=== PATIENT | female | born 1985 | race Hispanic/Latino ===

== ENCOUNTER 2019-04-03 04:15 | Emergency (ER) | payer OTHER ==
[~2019-04-03] VITALS: Ht 162.6 cm; Wt 95.3 kg
--- OUTSIDE RECORDS SUMMARY | 2019-04-03 04:18 | XMS REPORT | Clinical Summary ---
Author Author [facility]E [facility] CenterGround Zero Group CorporationH[facility] Address Unknown Phone Unavailable Care Team Providers Care Catechist Name Role Phone Yuriy Loza MD PCP Unavailable Allergies No Known Allergies Medications End Date Status Medication Sig Dispensed Refills Start Date Active metFORMIN (GLUCOPHAGE) Take 1,000 mg 0 1000 MG tablet by mouth 2 (two) times daily with breakfast and dinner. Active insulin glargine Inject 40 0 (BASAGLAR KWIKPEN U-100 Units INSULIN) 100 unit/mL (3 subcutaneousl mL) InPn y nightly. Active insulin aspart U-100 Inject 0 (NOVOLOG) 100 unit/mL subcutaneousl InPn y 3 (three) times daily with meals. Active dulaglutide (TRULICITY) Inject 1.5 mg 0 1.5 mg/0.5 mL PnIj subcutaneousl y every 7 days. 11/10/2018 Discontinued sitagliptin-metformin Take 1,000 mg 0 100-1,000 mg by mouth 2 [id number]: Fatty (two) times liver, Hepatomegaly, daily . Liver mass, Immunity status testing 11/10/2018 Discontinued nitroglycerin (NITROSTAT) Place 0.4 mg 0 0.4 MG SL under the tabletIndications: Fatty tongue every liver, Hepatomegaly, 5 (five) Liver mass, Immunity minutes as status testing needed for Chest pain Put 1 pill under tongue every 5min as needed for chest pain.No more than 3 doses in 15min.Call 911 if pain is unrelieved 5min after 1st dose . 11/10/2018 Discontinued atorvastatin (LIPITOR) 10 Take 10 mg by 0 MG tabletIndications: mouth daily. Fatty liver, Hepatomegaly, Liver mass, Immunity status testing 11/10/2018 Discontinued INSULIN DETEMIR (LEVEMIR Inject 40 0 SUBQ) Units subcutaneousl y daily. 11/10/2018 Discontinued amLODIPine (NORVASC) 5 MG Take 5 mg by 0 tablet mouth daily. 7 11/10/2018 Discontinued pantoprazole (PROTONIX) Take 1 tablet 20 tablet 0 20 MG tablet (20 mg total) 8 by mouth daily. 01/05/2019 Discontinued traMADol (ULTRAM) 50 mg Take 1 tablet 40 tablet 0 tablet (50 mg total) 9 by mouth every 6 (six) hours for 10 days. Max Daily Amount: 200 mg 01/05/2019 Discontinued ondansetron (ZOFRAN) 4 MG Take 1 tablet 30 tablet 0 tablet (4 mg total) 9 by mouth 2 (two) times daily as needed for Nausea for up to 7 days. 01/15/2019 traMADol (ULTRAM) 50 mg Take 1 tablet 40 tablet 0 tablet (50 mg total) 9 by mouth every 6 (six) hours for 10 days. Max Daily Amount: 200 mg 01/12/2019 ondansetron (ZOFRAN) 4 MG Take 1 tablet 30 tablet 0 tablet (4 mg total) 9 by mouth every 6 (six) hours as needed for Nausea for up to 7 days. Active Problems Problem Noted Date Liver mass 03/12/2016 Last Assessment & Plan: Recent CT scan (02/26/2016) reveals multiple enhancing liver lesions in the right hepatic lobe, largest measuring 1.7 cm. Lesions are indeterminate. She has multiple risk factors of liver disease although no biochemical or radiographic evidence of advanced liver disease. Updated labs today evaluating hepatic function along with tumor markers. Outside CT scan will be reviewed at radiology conference next week. She will likely need repeat imaging in 6 months to document stability of masses. Immunity status testing 03/12/2016 Last Assessment & Plan: All patients with chronic liver disease, regardless of etiology, should be immunized to prevent hepatitis A and hepatitis B if they are not already immune. We will test for immunity to both viruses - vaccine recommendations will follow. Resolved Problems Problem Noted Date Resolved Date Class 3 severe obesity in adult 01/05/2019 01/05/2019 Morbid obesity with BMI of 40.0-44.9, adult 01/03/2019 01/04/2019 Morbid obesity 01/03/2019 01/04/2019 Fatty liver 03/12/2016 01/05/2019 Last Assessment & Plan: Steatosis noted on recent CT scan. For steatosis to be seen on CT scan at least 30% of hepatocytes must contain fat. Fibrosis can also be read as steatosis. She has multiple risk factors for fatty liver disease. We will review her CT scan at radiology conference to further evaluate and await biochemical work up. It is recommended that she lose at least 20-30 pounds via dietary modifications and regular exercise. Hepatomegaly 03/12/2016 01/08/2019 Last Assessment & Plan: Mild hepatomegaly with hepatic steatosis noted on recent CT scan. She has numerous risk factors for liver disease which include morbid obesity, NIDDM, metabolic syndrome, and previous piercings and tattoos. We will obtain labs screening for genetic, autoimmune, and metabolic etiologies of liver disease. She may benefit from hepatology referral for additional management. Encounters Care Team Description Date Type Specialty Cailin Mishra RN long-term follow-up 02/28/2019 Telephone Cailin Mishra RN long distance billing operator follow-up 02/23/2019 Telephone Felecia Dean NP 01/03/2019 Anesthesia Event Jim Cleveland MD ROBOTIC LAPAROSCOPY,LONGITUDINAL SLEEVE GASTRECTOMY 01/03/2019 Surgery Jim Cleveland MD 01/03/2019 [facility] General Internal Medicine - Encounter 01/05/2019 01/03/2019 Travel Jim Cleveland MD Fatty liver 12/21/2018 Hospital Pre-Admission Testing Encounter 12/21/2018 Orders Only General [facility] 11/30/2018 Surgery Che Walker MD 11/30/2018 Anesthesia Event Osmany, Luis Alfredo Korey 11/30/2018 Hospital Encounter Tanisha Martin MD 11/16/2018 Anesthesia Event [facility]OS[facility],POLYPECTOMY 11/16/2018 Surgery Osmany, Luis Alfredo Korey 11/16/2018 Hospital Encounter Osmany, Luis [facility]altaf [facility]mit Phone 11/10/2018 Hospital Pre-Admission Testing Encounter after 04/02/2018 Family History Medical History Relation Name Comments Unremarkable Brother Unremarkable Brother Heart disease Father Hyperlipidemia Father Hypertension Father Unremarkable Sister Unremarkable Sister Relation Name Status Comments Brother Alive Brother Alive Father Alive Mother ulcers Alive Sister Alive Sister Alive Social History Date Tobacco Use Types Packs/Day Years Used Never Smoker Smokeless Tobacco: Never Used Alcohol Use Drinks/Week oz/Week Comments No socially Alcohol Habits Answer Date Recorded How often do you have a drink containing alcohol? Never 11/30/2018 How many drinks containing alcohol do you have on Not asked a typical day when you are drinking? How often do you have six or more drinks on one Not asked occasion? Sex Assigned at Date Recorded Female 12/21/2018 1:52 PM CDT Industry Job Start Date Occupation Not on file Not on file Not on file Travel End Travel History Travel Start No recent travel history available. Last Filed Vital Signs Time Taken Vital Sign Reading 01/05/2019 3:26 PM CDT Blood Pressure 134/72 01/05/2019 3:26 PM CDT Pulse 97 01/05/2019 3:26 PM CDT Temperature 36.4 C (97.5 F) 01/05/2019 3:26 PM CDT Respiratory Rate 18 01/05/2019 3:26 PM CDT Oxygen Saturation 96% - Inhaled Oxygen - Concentration 01/03/2019 5:50 AM CDT Weight 109.5 kg (241 lb 6.5 oz) 01/03/2019 5:50 AM CDT Height 163.8 cm (5' 4.5") 01/03/2019 5:50 AM CDT Body Mass Index 40.8 Plan of Treatment Not on file Implants Device Identifier Shelf Expiration Date Model / Serial / Lot Implanted Type Area Manufactur er 04/19/2021 [id number] / / [id number] Stplr [facility] Blk - Graft/Patc N/A: Stomach WL GORE & [id number] ASSC:MED Implanted: Qty: 4 on 01/03/2019 by Jim Davidson MD 04/19/2021 [id number] / / [id number] Seamguard Bioabsorbable Staple Line N/A: Stomach GORE Reinforcement Black Implanted: Qty: 1 on 01/03/2019 by Jim Cleveland MD Procedures Comments Procedure Name Priority Date/Time Associated Diagnosis PERIPHERAL VASCULAR 01/06/2019 REPORT - SCAN 9:24 PM CDT RHYTHM STRIP - SCAN 01/06/2019 1:02 PM CDT VENOUS DOPPLER LEG, LEFT STAT 01/05/2019 1:20 PM CDT POCT-GLUCOSE METER Routine 01/05/2019 11:37 AM CDT POCT-GLUCOSE METER Routine 01/05/2019 7:55 AM CDT COMPREHENSIVE METABOLIC Routine 01/05/2019 PANEL 3:55 AM CDT POCT-GLUCOSE METER Routine 01/04/2019 10:10 PM CDT TRANSFUSION SERVICE 01/04/2019 REPORT - SCAN 6:05 PM CDT POCT-GLUCOSE METER Routine 01/04/2019 5:44 PM CDT POCT-GLUCOSE METER Routine 01/04/2019 12:01 PM CDT POCT-GLUCOSE METER Routine 01/04/2019 8:02 AM CDT CBC W/PLT COUNT & AUTO Routine 01/04/2019 DIFFERENTIAL 2:42 AM CDT COMPREHENSIVE METABOLIC Routine 01/04/2019 PANEL 2:42 AM CDT CBC W/PLT COUNT & AUTO Routine 01/04/2019 DIFFERENTIAL 2:42 AM CDT POCT-GLUCOSE METER Routine 01/03/2019 11:13 PM CDT POCT-GLUCOSE METER Routine 01/03/2019 4:43 PM CDT POCT-GLUCOSE METER Routine 01/03/2019 11:36 AM CDT TISSUE EXAM AP Routine 01/03/2019 10:24 AM CDT POCT-GLUCOSE METER Routine 01/03/2019 8:51 AM CDT PROCEDURE W/ DAVINCI XI 01/03/2019 Morbid obesity (HCC) 7:30 AM CDT Diabetes mellitus without complication (HCC) Case Notes 2 HRS PER RE[facility] ICU BED NEEDED Special Needs (DAVINCI XI - XI REQUESTED, ENDO EQUIPMENT) UPPER ENDOSCOPY 01/03/2019 Morbid obesity (HCC) 7:30 AM CDT Diabetes mellitus without complication (HCC) Case Notes 2 HRS PER [facility] ICU BED NEEDED Special Needs (DAVINCI XI - XI REQUESTED, ENDO EQUIPMENT) ROBOTIC 01/03/2019 Morbid obesity (HCC) LAPAROSCOPY,LONGITUDINAL 7:30 AM CDT Diabetes mellitus without SLEEVE GASTRECTOMY complication (HCC) Case Notes 2 HRS PER [facility] ICU BED NEEDED Special Needs (DAVINCI XI - XI REQUESTED, ENDO EQUIPMENT) ABORH, MANUAL STAT 01/03/2019 6:13 AM CDT POCT-GLUCOSE METER Routine 01/03/2019 6:08 AM CDT POCT , URINE STAT 01/03/2019 5:56 AM CDT TRANSFUSION SERVICE 12/22/2018 REPORT - SCAN 6:05 PM CDT TYPE AND SCREEN, Routine 12/21/2018 AUTOMATED 4:30 PM CDT GLUCOSE Routine 12/21/2018 4:30 PM CDT ELECTROLYTE PANEL Routine 12/21/2018 4:30 PM CDT BUN AND CREATININE Routine 12/21/2018 4:30 PM CDT HEMOGLOBIN Routine 12/21/2018 4:30 PM CDT PLATELET COUNT Routine 12/21/2018 4:30 PM CDT ECG 12-LEAD Routine 12/21/2018 3:34 PM CDT Procedure Note - Interface, External Ris In - 12/21/2018 4:40 PM CDT Ventricula r Rate 94 BPM Atrial Rate 94 BPM P-R Interval 172 ms QRS Duration 152 ms Q-T Interval 394 ms QTC Calculatio n(Bazett) 492 ms P [place] 39 degrees R [place] 85 degrees T [place] 23 degrees Normal sinus rhythm Indetermin ate axis Right bundle branch block Inferior infarct (cited on or before 8) Abnormal ECG When compared with ECG of 8 13:30, No significan t change was found ECG 12-LEAD Routine 12/21/2018 3:34 PM CDT UPPER ENDOSCOPY 11/30/2018 Intestinal metaplasia of 9:00 AM CDT gastric mucosa REPORT OF PROCEDURE - 11/30/2018 ENDOSCOPY URL 8:47 AM CDT POCT , URINE Routine 11/30/2018 7:50 AM CDT POCT-GLUCOSE METER Routine 11/30/2018 7:39 AM CDT REPORT OF PROCEDURE - 11/16/2018 ENDOSCOPY URL 2:27 PM KINESIOLOGY PROFESSOR TISSUE EXAM AP Routine 11/16/2018 2:10 PM KINESIOLOGY PROFESSOR POCT , URINE Routine 11/16/2018 1:48 PM KINESIOLOGY PROFESSOR UPPER 11/16/2018 Morbid obesity (HCC) ENDOSCOPY,POLYPECTOMY 1:30 PM KINESIOLOGY PROFESSOR Pre-operative clearance POCT-GLUCOSE METER Routine 11/16/2018 12:59 PM KINESIOLOGY PROFESSOR after 04/02/2018 Results * PERIPHERAL VASCULAR REPORT - SCAN (01/06/2019 9:24 PM CDT) Narrative Performed At * RHYTHM STRIP - SCAN (01/06/2019 1:02 PM CDT) Narrative Performed At * Venous Doppler Leg, Left (01/05/2019 1:20 PM CDT) Ejection Fraction [facility] Specimen Impressions Performed At Right Impression [facility] Not ordered. [facility] Left Impression 1. There is no deep venous obstruction in the common femoral, profunda femoral, femoral, popliteal, posterior tibial or peroneal veins. 2. There is no superficial venous obstruction in the great saphenous vein. Conclusions Summary Venous duplex imaging and compression of the left lower extremity were performed. The veins were adequately visualized. The left venous system was patent and compressible with no evidence of thrombus. The venous Doppler waveforms were phasic with respiration . Signature Velocities are measured in cm/s ; Diameters are measured in cm Narrative Performed At [facility] - Lower Extremities DVT Study [facility] Demographics MKCKESSON CPACS Patient Name AARON ROMO Date of Study 01/05/2019 SEBASTIAN [id number] Age 33 Visit Number [id number] GenderFemale Accession Number [id number] Date of 1985 [facility] Room Number [facility]11 Physician SonographerGadriana Boogie.InterpretingAshanti Rahman RVT, RENALDO Fairbanks MD Procedure Type of Study: Veins: Lower Extremities DVT Study, VENOUS DOPPLER LEG, LEFT. Indications for Study:Left Leg Pain. Patient Status:STAT. Study Location:Vascular Lab. Technical Quality:Adequate visualization. Procedure Note Interface, External Ris In - 01/06/2019 10:22 AM CDT [facility] - Lower Extremities DVT Study Demographics Patient Name AARON ROMO Date of Study 01/05/2019 SEBASTIAN WILDN [id number] Age 33 Visit Number [id number] Gender Female Accession Number [id number] Date of 1985 Referring [facility] Room Number 1511 Physician Historic Sites Registrar Lionel Boogie. Interpreting Ashanti Rahman RVT, ARDMS Physician MD Procedure Type of Study: Veins: Lower Extremities DVT Study, VENOUS DOPPLER LEG, LEFT. Indications for Study:Left Leg Pain. Patient Status:STAT. Study Location:Vascular Lab. Technical Quality:Adequate visualization. Impressions Right Impression Not ordered. Left Impression 1. There is no deep venous obstruction in the common femoral, profunda femoral, femoral, popliteal, posterior tibial or peroneal veins. 2. There is no superficial venous obstruction in the great saphenous vein. Conclusions Summary Venous duplex imaging and compression of the left lower extremity were performed. The veins were adequately visualized. The left venous system was patent and compressible with no evidence of thrombus. The venous Doppler waveforms were phasic with respiration . Signature Velocities are measured in cm/s ; Diameters are measured in cm Performing Organization Address City/[facility] Centercode Phone Number [facility] MKCK[facility]ON [facility] * POC-Glucose meter (01/05/2019 11:37 AM CDT) Only the most recent of 13 results within the time period is included. POC-Glucose Meter 85Comment: TESTED AT [facility] 70 - 110 mg/dL [address] Specimen Blood Performing Organization Address City/[facility]/[place] [address] [facility] * Comprehensive metabolic panel (01/05/2019 3:55 AM CDT) Only the most recent of 2 results within the time period is included. Protein, Total 7.0 6.0 - 8.3 gm/dL [facility] Albumin 4.1 3.5 - 5.0 g/dL [facility] Alkaline Phosphatase 42 40 - 150 U/L [facility] Total Bilirubin 0.8 0.2 - 1.2 mg/dL [facility] Sodium 137 136 - 145 meq/L [facility] Potassium 4.3 3.5 - 5.1 meq/L [facility] Chloride 105 98 - 107 meq/L [facility] CO2 22 22 - 29 meq/L [facility] BUN 4 (L) 7 - 21 mg/dL [facility] Creatinine 0.68 0.57 - 1.25 mg/dL [facility] Glucose 129 (H) 70 - 105 mg/dL [facility] Calcium 8.7 8.4 - 10.2 mg/dL [facility] AST 51 (H) 5 - 34 U/L [facility] ALT 81 (H) 6 - 55 U/L [facility] EGFR 98Comment: ESTIMATED GFR IS mL/min/1.73 sq m [facility] NOT ACCURATE CREATININE [facility] CLEARANCE IN PREDICTING GLOMERULAR FILTRATION RATE. ESTIMATED GFR IS NOT APPLICABLE FOR DIALYSIS PATIENTS. Specimen Blood Performing Organization Address City/State/Zipcode Phone Number [facility] [address] [place] [address] [facility] * TRANSFUSION SERVICE REPORT - SCAN (01/04/2019 6:05 PM CDT) Only the most recent of 2 results within the time period is included. Narrative Performed At * CBC with platelet count + automated diff (01/04/2019 2:42 AM CDT) WBC 8.0 3.5 - 10.5 K/L [facility] RBC 4.15 3.93 - 5.22 M/L [facility] Hemoglobin 13.2 11.2 - 15.7 GM/DL [facility] Hematocrit 38.9 34.1 - 44.9 % [facility] MCV 93.7 79.4 - 94.8 fL [facility] MCH 31.8 25.6 - 32.2 pg [facility] MCHC 33.9 32.2 - 35.5 GM/DL [facility] RDW 12.6 11.7 - 14.4 % [facility] Platelets 161 150 - 450 K/CU MM [facility] MPV 10.7 9.4 - 12.3 fL [facility] nRBC 0 0 - 0 /100 WBC [facility] % Neutros 76 % [facility] % Lymphs 18 % [facility] % Monos 7 % [facility] % Eos 0 % [facility] % Baso 0 % [facility] # Neutros 6.03 1.56 - 6.13 K/L [facility] # Lymphs 1.39 1.18 - 3.74 K/L [facility] # Monos 0.52 (H) 0.24 - 0.36 K/L [facility] # Eos 0.00 (L) 0.04 - 0.36 K/L [facility] # Baso 0.00 (L) 0.01 - 0.08 K/L [facility] Immature 0 0 - 1 % [facility] Granulocytes-[facility] Specimen Blood Performing Organization Address City/State/Zipcode Phone Number [facility] [address] [place] [address] MED[facility]ENTER * Tissue Exam (01/03/2019 10:24 AM CDT) Only the most recent of 2 results within the time period is included. Case Report Surgical Pathology [facility] Case: [id number] Authorizing Provider:Jim Cleveland MDCollected: 01/03/2019 1024 Ordering Location: [facility] PERIOPERATIVE Received: 01/03/2019 1155 SERVICES Pathologist: Leti Lee MD Specimen:Stomach, stomach DIAGNOSIS A. STOMACH, PARTIAL SLEEVE [facility] GASTRECTOMY: [facility] - OXYNTIC MUCOSA WITH CHRONIC INACTIVE GASTRITIS - NEGATIVE FOR HELICOBACTER PYLORI ORGANISMS (BY H&E EXAMINATION) - NEGATIVE FOR INTESTINAL METAPLASIA, DYSPLASIA, MALIGNANCY Signing Pathologist Direct Phone Line: [phone] CPT Code(s) 11539 [facility] CLINICAL HISTORY Morbid obesity, diabetes [facility] mellitus without complication [facility] SPECIMEN SOURCE Stomach [facility] GROSS DESCRIPTION This case was received in one [facility] part received fresh labeled [facility] "stomach tissue" and is a 27 x 4 x 1.5 cm partial gastrectomy with a staple line measuring 24 cm in length. There is no attached fat. The serosal surface is null-pink and hyperemic. The gastric contents are dark-red, brown and gelatinous. The gastric wall displays normal rugal folds. There are no discrete masses identified. Radiophone Operator sections are submitted as follows. Section code: A1-A4, stapled margin, in its entirety, en face; A5, random sections of gastric wall from one; A6, random section of gastric wall from center of specimen; A7, random section of gastric wall opposite end. KENYATTA/kalani MICROSCOPIC DESCRIPTION Performed. [facility] Specimen Tissue Performing Organization Address City/[facility]/Zipcode Phone Number [facility] [address] [place] [address] [facility] * ABORH, manual (01/03/2019 6:13 AM CDT) ABO Grouping A [facility] Rh Factor POS [facility] Specimen Blood Performing Organization Address City/[facility]/Zipcode Phone Number [facility] [address] [place] [address] [facility] * POCT , urine (01/03/2019 5:56 AM CDT) Only the most recent of 3 results within the time period is included. Test Urine, POC Negative Control line present?, Yes POC Background clear?, POC Yes UPT Cassette Lot #, POC [id number] UPT Cassette Expiration 01-18-2020 Date, POC Specimen Urine * Type and screen, automated (12/21/2018 4:30 PM CDT) ABO/RH AUTOMATED (BEAKER) A POSITIVE [facility] Ab Scrn NEGATIVE [facility] Specimen Blood Performing Organization Address City/[facility] Centercode Phone Number [address] * BUN and Creatinine (12/21/2018 4:30 PM CDT) BUN 13 7 - 21 mg/dL [facility] Creatinine 0.65Comment: Specimen slightly 0.57 - 1.25 mg/dL [facility] hemolyzed [facility] EGFR 104Comment: ESTIMATED GFR IS mL/min/1.73 sq m [facility] NOT ACCURATE CREATININE [facility] CLEARANCE IN PREDICTING GLOMERULAR FILTRATION RATE. ESTIMATED GFR IS NOT APPLICABLE FOR DIALYSIS PATIENTS. Specimen Blood Performing Organization Address [facility] Centercode Phone Number [address] * Platelet count (12/21/2018 4:30 PM CDT) Platelets 157 150 - 450 K/CU MM [facility] Specimen Blood Performing Organization Address City/[facility] Centercode Phone Number [address] * Hemoglobin (12/21/2018 4:30 PM CDT) Hemoglobin 14.5 11.2 - 15.7 GM/DL [facility] Specimen Blood Performing Organization Address [facility] Centercode Phone Number [place] [phone] * Glucose (12/21/2018 4:30 PM CDT) Glucose 158 (H) 70 - 105 mg/dL [facility] Specimen Blood Performing Organization Address City/[facility]/Zipcode Phone Number [facility] [address] [place] [address] [facility] * Electrolytes (12/21/2018 4:30 PM CDT) Sodium 139 136 - 145 meq/L [facility] Potassium 3.9Comment: Specimen slightly 3.5 - 5.1 meq/L [facility] hemolyzed [facility] Chloride 101 98 - 107 meq/L [facility] CO2 29 22 - 29 meq/L [facility] Specimen Blood Performing Organization Address [facility] Centercomo Phone Number [place] [phone] [place] [address] [phone] [place] [address] * ECG 12 lead (12/21/2018 3:34 PM CDT) Specimen Narrative Performed At Ventricular Rate 94 BPM GE MUSE Atrial Rate 94 BPM P-R Interval 172 ms QRS Duration 152 ms Q-T Interval 394 ms QTC Calculation(Bazett) 492 ms P [place] 39 degrees R [place] 85 degrees T [place] 23 degrees Normal sinus rhythm Indeterminate axis Right bundle branch block Abnormal ECG When compared with ECG of 15-NOV-2017 13:30, No significant change was found Confirmed by MD QUINTERO JORGE ([id number]) on 12/22/2018 12:31:57 PM Procedure Note Interface, External Ris In - 12/22/2018 12:32 PM CDT Ventricular Rate 94 BPM Atrial Rate 94 BPM P-R Interval 172 ms QRS Duration 152 ms Q-T Interval 394 ms QTC Calculation(Bazett) 492 ms P [place] 39 degrees R [place] 85 degrees T [place] 23 degrees Normal sinus rhythm Indeterminate axis Right bundle branch block Abnormal ECG When compared with ECG of 15-NOV-2017 13:30, No significant change was found Confirmed by MD QUINTERO JORGE ([id number]) on 12/22/2018 12:31:57 PM Performing Organization Address City/State/Zipcode Phone Number [employer] MUSE * REPORT OF PROCEDURE - ENDOSCOPY URL (11/30/2018 8:47 AM CDT) Narrative Performed At * REPORT OF PROCEDURE - ENDOSCOPY URL (11/16/2018 2:27 PM KINESIOLOGY PROFESSOR) Narrative Performed At after 04/02/2018 Insurance Payer Benefit Subscriber ID Type Phone Address Plan / Group [place] [employer] [place] HMO xxxxxxxxx HMO/POS CARE POS SELECT CHOICE Advance Directives For more information, please contact: [facility] [address] [place] [address] Date Inactivated Comments Code Status Date Activated 01/05/2019 8:30 PM Full Code 01/03/2019 1:51 PM This code status was determined by: Patient 01/03/2019 1:50 PM Full Code 01/03/2019 5:31 AM This code status was determined by: Patient
--- OUTSIDE RECORDS SUMMARY | 2019-04-03 04:21 | XMS REPORT ---
Author Author [facility] Address Unknown Phone Unavailable Care Team Providers Care Cleaning Custodian Name Role Phone NIKKI Pieter GARCIAS Unavailable Unavailable THEA CERON Unavailable Unavailable MARGARITO FIORE Unavailable Unavailable Problems This patient has no known problems. Allergies, Adverse Reactions, Alerts This patient has no known allergies or adverse reactions. Medications This patient has no known medications. Results Test Description Test Time Test Comments Text Results Atomic Results Result Comments POCT-GLUCOSE METER 2019-01-05 12:46:00 POC-GLUCOSE METER (BEAKER) (test csdq=0540) 85 mg/dL 70-110 TESTED AT [address] [address] POCT-GLUCOSE [id number] 09:23:00* Test Item Value Reference Range Comments POC-GLUCOSE METER (BEAKER) (test phhc=0107) 126 mg/dL 70-110 TESTED AT [address] [address] COMPREHENSIVE METABOLIC [id number] 06:13:00* Test Item Value Reference Range Comments TOTAL PROTEIN (BEAKER) (test afyg=799) 7.0 gm/dL 6.0-8.3 ALBUMIN (BEAKER) (test lkvv=8637) 4.1 g/dL 3.5-5.0 ALKALINE PHOSPHATASE (BEAKER) (test ihtn=578) 42 U/L 40-150 BILIRUBIN TOTAL (BEAKER) (test wdie=547) 0.8 mg/dL 0.2-1.2 SODIUM (BEAKER) (test lrca=161) 137 meq/L 136-145 POTASSIUM (BEAKER) (test pbcg=048) 4.3 meq/L 3.5-5.1 CHLORIDE (BEAKER) (test tgxa=405) 105 meq/L 98-107 CO2 (BEAKER) (test vvxl=704) 22 meq/L 22-29 BLOOD UREA NITROGEN (BEAKER) (test xhdc=974) 4 mg/dL 7-21 CREATININE (BEAKER) (test kllr=134) 0.68 mg/dL 0.57-1.25 GLUCOSE RANDOM (BEAKER) (test cwgy=742) 129 mg/dL 70-105 CALCIUM (BEAKER) (test tmuy=641) 8.7 mg/dL 8.4-10.2 AST (SGOT) (BEAKER) (test gwrn=258) 51 U/L 5-34 ALT (SGPT) (BEAKER) (test mpih=733) 81 U/L 6-55 EGFR (BEAKER) (test bsvx=4218) 98 mL/min/1.73 sq m ESTIMATED GFR IS NOT ACCURATE CREATININE CLEARANCE IN PREDICTING GLOMERULAR FILTRATION RATE. ESTIMATED GFR IS NOT APPLICABLE FOR DIALYSIS PATIENTS. POCT-GLUCOSE [id number] 22:16:00* Test Item Value Reference Range Comments POC-GLUCOSE METER (YANDEL) (test zltl=1123) 93 mg/dL 70-110 TESTED AT [place] [id number] [facility] [place] [address] POCT-GLUCOSE [id number] 18:24:00* Test Item Value Reference Range Comments POC-GLUCOSE METER (YANDEL) (test ymyb=5397) 90 mg/dL 70-110 TESTED AT [place] [id number] [facility] [place] [address] POCT-GLUCOSE [id number] 13:24:00* Test Item Value Reference Range Comments POC-GLUCOSE METER (YANDEL) (test ghej=4910) 145 mg/dL 70-110 TESTED AT [place] [id number] [facility] [place] [address] TISSUE [id number] 10:33:00Surgical Pathology Report Case: [id number] Authorizing Provider: Tahira Cleveland MD Collected: 01/03/2019 1024 Ordering Location: [facility] PERI[facility] Received: 01/03/2019 1155 SERVICES Pathologist: Leti Lee MD Specimen: Stomach, stomach A. STOMACH, PARTIAL SLEEVE GASTRECTOMY: - OXYNTIC MUCOSA WITH CHRONIC INACTIVE GASTRITIS - NEGATIVE FOR HELICOBACTER PYLORI ORGANISMS (BY H&E EXAMINATION) - NEGATIVE FOR INTESTINAL METAPLASIA, DYSPLASIA, MALIGNANCY Signing Pathologist Direct Phone Line: [phone] signed by Leti Lee MD on 01/04/2019 at 10:33 [id number] obesity, diabetes mellitus without complication StomachThis case was received in one part received fresh labeled "stomach tissue" and is a 27 x 4 x 1.5 cm partial gastrectomy with a staple line measuring 24 cm in length. There is no attached fat.The serosal surface is null- pink and hyperemic. The gastric contents are dark-red, brown and gelatinous. The gastric wall displays normal rugal folds. 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 KENYATTA/ewPerformed.POCT-GLUCOSE METER 2019-01-04 08:28:00* Test Item Value Reference Range Comments POC-GLUCOSE METER (BEAKER) (test ufwg=9756) 127 mg/dL 70-110 TESTED AT [facility] [address] [facility] [place] [address] COMPREHENSIVE METABOLIC [id number] 03:52:00* Test Item Value Reference Range Comments TOTAL PROTEIN (BEAKER) (test quqp=073) 6.6 gm/dL 6.0-8.3 ALBUMIN (BEAKER) (test rpsg=0448) 3.9 g/dL 3.5-5.0 ALKALINE PHOSPHATASE (BEAKER) (test xnxs=884) 38 U/L 40-150 BILIRUBIN TOTAL (BEAKER) (test ncys=082) 0.9 mg/dL 0.2-1.2 SODIUM (BEAKER) (test emak=472) 139 meq/L 136-145 POTASSIUM (BEAKER) (test hozi=728) 4.3 meq/L 3.5-5.1 CHLORIDE (BEAKER) (test odmu=626) 107 meq/L 98-107 CO2 (BEAKER) (test edst=729) 24 meq/L 22-29 BLOOD UREA NITROGEN (BEAKER) (test xmuk=681) 6 mg/dL 7-21 CREATININE (BEAKER) (test hjiz=989) 0.69 mg/dL 0.57-1.25 GLUCOSE RANDOM (BEAKER) (test mdau=720) 132 mg/dL 70-105 CALCIUM (BEAKER) (test rvxl=239) 8.5 mg/dL 8.4-10.2 AST (SGOT) (BEAKER) (test dgxn=356) 92 U/L 5-34 ALT (SGPT) (BEAKER) (test rhaq=843) 101 U/L 6-55 EGFR (BEAKER) (test prju=6114) 97 mL/min/1.73 sq m ESTIMATED GFR IS NOT ACCURATE CREATININE CLEARANCE IN PREDICTING GLOMERULAR FILTRATION RATE. ESTIMATED GFR IS NOT APPLICABLE FOR DIALYSIS PATIENTS. CBC W/PLT COUNT & AUTO [id number] 03:29:00* Test Item Value Reference Range Comments WHITE BLOOD CELL COUNT (BEAKER) (test oyyw=576) 8.0 K/ L 3.5-10.5 RED BLOOD CELL COUNT (BEAKER) (test uemh=941) 4.15 M/ L 3.93-5.22 HEMOGLOBIN (BEAKER) (test zprz=891) 13.2 GM/DL 11.2-15.7 HEMATOCRIT (BEAKER) (test fypl=763) 38.9 % 34.1-44.9 MEAN CORPUSCULAR VOLUME (BEAKER) (test asto=005) 93.7 fL 79.4-94.8 MEAN CORPUSCULAR HEMOGLOBIN (BEAKER) (test xqnj=818) 31.8 pg 25.6-32.2 MEAN CORPUSCULAR HEMOGLOBIN CONC (BEAKER) (test uuzc=492) 33.9 GM/DL 32.2-35.5 RED CELL DISTRIBUTION WIDTH (BEAKER) (test cavo=155) 12.6 % 11.7-14.4 PLATELET COUNT (BEAKER) (test mgqt=300) 161 K/CU MM 150-450 MEAN PLATELET VOLUME (BEAKER) (test xiin=587) 10.7 fL 9.4-12.3 NUCLEATED RED BLOOD CELLS (BEAKER) (test guyg=571) 0 /100 WBC 0-0 NEUTROPHILS RELATIVE PERCENT (BEAKER) (test zlho=558) 76 % LYMPHOCYTES RELATIVE PERCENT (BEAKER) (test gimv=914) 18 % MONOCYTES RELATIVE PERCENT (BEAKER) (test zuuc=820) 7 % EOSINOPHILS RELATIVE PERCENT (BEAKER) (test ljjl=703) 0 % BASOPHILS RELATIVE PERCENT (BEAKER) (test frvk=330) 0 % NEUTROPHILS ABSOLUTE COUNT (BEAKER) (test dbwp=497) 6.03 K/ L 1.56-6.13 LYMPHOCYTES ABSOLUTE COUNT (BEAKER) (test zpbf=871) 1.39 K/ L 1.18-3.74 MONOCYTES ABSOLUTE COUNT (BEAKER) (test fobs=840) 0.52 K/ L 0.24-0.36 EOSINOPHILS ABSOLUTE COUNT (BEAKER) (test warh=208) 0.00 K/ L 0.04-0.36 BASOPHILS ABSOLUTE COUNT (BEAKER) (test rdhc=988) 0.00 K/ L 0.01-0.08 IMMATURE GRANULOCYTES-RELATIVE PERCENT (BEAKER) (test epyu=6811) 0 % 0-1 POCT-GLUCOSE [id number] 23:39:00* Test Item Value Reference Range Comments POC-GLUCOSE METER (BEAKER) (test mmlh=6391) 147 mg/dL 70-110 [address]ED AT [address] [address] POCT-GLUCOSE [id number] 17:19:00* Test Item Value Reference Range Comments POC-GLUCOSE METER (BEAKER) (test gqyu=5088) 179 mg/dL 70-110 TESTED AT [address] [address] POCT-GLUCOSE [id number] 11:41:00* Test Item Value Reference Range Comments POC-GLUCOSE METER (BEAKER) (test isyd=2835) 194 mg/dL 70-110 TESTED AT [address] [address] POCT-GLUCOSE [id number] 08:54:00* Test Item Value Reference Range Comments POC-GLUCOSE METER (BEAKER) (test ayue=3700) 128 mg/dL 70-110 TESTED AT [address] [address] POCT-GLUCOSE [id number] 06:16:00* Test Item Value Reference Range Comments POC-GLUCOSE METER (BEAKER) (test bljc=8288) 181 mg/dL 70-110 TESTED AT [address] [address] [id number] 17:06:00* Test Item Value Reference Range Comments SODIUM (BEAKER) (test qfhp=673) 139 meq/L 136-145 POTASSIUM (BEAKER) (test kavm=924) 3.9 meq/L 3.5-5.1 Specimen slightly hemolyzed CHLORIDE (BEAKER) (test dmqs=098) 101 meq/L 98-107 CO2 (BEAKER) (test jbcc=073) 29 meq/L 22-29 [id number] 17:06:00* Test Item Value Reference Range Comments GLUCOSE RANDOM (BEAKER) (test zkrq=129) 158 mg/dL 70-105 BUN AND [id number] 17:06:00* Test Item Value Reference Range Comments BLOOD UREA NITROGEN (BEAKER) (test vguy=300) 13 mg/dL 7-21 CREATININE (BEAKER) (test swjm=390) 0.65 mg/dL 0.57-1.25 Specimen slightly hemolyzed EGFR (BEAKER) (test rhbv=6500) 104 mL/min/1.73 sq m ESTIMATED GFR IS NOT ACCURATE CREATININE CLEARANCE IN PREDICTING GLOMERULAR FILTRATION RATE. ESTIMATED GFR IS NOT APPLICABLE FOR DIALYSIS PATIENTS. [id number] 16:54:00* Test Item Value Reference Range Comments HEMOGLOBIN (BEAKER) (test mxrq=151) 14.5 GM/DL 11.2-15.7 PLATELET [id number] 16:54:00* Test Item Value Reference Range Comments PLATELET COUNT (BEAKER) (test rpaf=048) 157 K/CU MM 150-450 POCT-GLUCOSE [id number] 07:44:00* Test Item Value Reference Range Comments POC-GLUCOSE METER (BEAKER) (test fcio=8807) 191 mg/dL 70-110 TESTED AT [address] [address] TISSUE [id number] 12:54:00Surgical Pathology Report Case: [id number] Authorizing Provider: Luis Alfredo Ceron Collected: 11/16/2018 1410 Ordering Location: [facility] END[facility] Received: 11/16/2018 1647 SERVICES Pathologist: Nayeli Mortensen MD Specimens: A) - Biopsy, Gastric B) - Polyp, Gastric, x 3 A. STOMACH, BIOPSIES: - INTESTINAL METAPLASIA - CHRONIC INACTIVE GASTRITISB. STOMACH, POLYPECTOMIES: - FUNDIC GLAND POLYP - CHRONIC INACTIVE GASTRITIS PRICILA/lauren Signing Pathologist Direct Phone Line: [phone] signed by Nayeli Mortensen MD on 11/17/2018 at 12:54 [id number] x2; [id number] A. Gastric biopsy. B. Gastric polyp m1Ymsloryi is received in two containers of formalin both labeled with the patient's information.Specimen A: Labeled "gastric biopsy" consists of three fragments of null-red soft tissue ranging from 0.1 to 0.2 cm, submitted entirely in A1.Spec imen B: Labeled "gastric polyp x3" consists of three round fragments of null-red soft tissue ranging from 0.1 to 0.2 cm, submitted in B1. CG/ew A. Gastric biopsi es have antral and oxyntic mucosa with mild increased chronic inflammatory cells in the lamina propria. No Helicobacter pylori are seen on H&E or Warthin-starry stains. Intestinal metaplasia is noted. No dysplasia or malignancy is identified. B. One of the gastric polyps is a fundic gland. The rest are oxyntic mucosa with increased chronic inflammatory cells in the lamina propria. No Helicobacter pylori are seen on H&E or Warthin-starry stain. No intestinal metaplasia, dysplasia or malignancy seen. The interpretation of this case included the use of immunohistochemistry or special stains. Immunohistochemistry technical testing was performed at [facility] Pathology Laboratory where it was developed and its performance characteristics were determined. It has not been cleared or approved by the U.S. Food and Drug Administration. The FDA has determined that such clearance or approval is not necessary. The test is used for clinical purposes. It should not be regarded as investigational or for research. This laboratory is certified under the Clinical Laboratory Improvement Amendments of 1988 (CLIA-88) as qualified to perform high complexity clinical laboratory testing.POCT-GLUCOSE [id number] 13:01:00* Test Item Value Reference Range Comments POC-GLUCOSE METER (YANDEL) (test bvyp=0412) 107 mg/dL 70-110 TESTED AT [place] [id number] [facility] [address] RAD, CHEST, 2 [id number] 14:28:00Reason for exam:->CHEST PAINIs the patient ?->NoShould this be performed at the bedside?->NoFINAL REPORT Two views chest Discussion: Sternotomy changes and mediastinal clip are noted. Heart size normal. Lungs clear. No effusion or pneumothorax. Signed: Brittany Birch Verified Date/Time: 11/15/2017 14:28:44 Reading Location: [facility] C013W Consult Reading Room [id number] 14:14:00* Test Item Value Reference Range Comments D-DIMER QUANTITATIVE (BEAKER) (test haaq=579) 0.30 MG/L FEU <0.50 REGARDING D-DIMER RESULTS: Results of this D-Dimer test should always be interpr eted in conjunction with the patient's medical history, clinical presentation an d other findings. DVT clinical diagnosis should not be based on the results of I NNOVANCE D-Dimer alone.RAPID TROPONIN [id number] 14:12:00* Test Item Value Reference Range Comments RAPID TROPONIN I (BEAKER) (test enap=1956) < ng/mL <0.05 RAPID [id number] 14:12:00* Test Item Value Reference Range Comments RAPID CKMB (BEAKER) (test thot=2124) < ng/mL 0.0-4.3 BASIC METABOLIC [id number] 14:06:00* Test Item Value Reference Range Comments SODIUM (BEAKER) (test rpbm=663) 140 meq/L 135-148 POTASSIUM (BEAKER) (test zdzp=973) 4.0 meq/L 3.6-5.5 CHLORIDE (BEAKER) (test hzta=489) 100 meq/L 98-106 CO2 (BEAKER) (test tivm=100) 26 meq/L 24-32 BLOOD UREA NITROGEN (BEAKER) (test rppf=920) 8 mg/dL 10-26 CREATININE (BEAKER) (test xsfe=015) 0.47 mg/dL 0.50-1.20 GLUCOSE RANDOM (BEAKER) (test iadu=552) 379 mg/dL 70-110 CALCIUM (BEAKER) (test qgwc=653) 9.3 mg/dL 8.5-10.5 EGFR (BEAKER) (test sgvr=9268) 152 mL/min/1.73 sq m ESTIMATED GFR IS NOT ACCURATE CREATININE CLEARANCE IN PREDICTING GLOMERULAR FILTRATION RATE. ESTIMATED GFR IS NOT APPLICABLE FOR DIALYSIS PATIENTS. CBC W/PLT COUNT & AUTO [id number] 14:02:00* Test Item Value Reference Range Comments WHITE BLOOD CELL COUNT (BEAKER) (test msgc=353) 5.8 10e3/ L 4.0-10.0 RED BLOOD CELL COUNT (BEAKER) (test cyyf=305) 4.77 10e6/ L 4.00-5.00 HEMOGLOBIN (BEAKER) (test gmkf=034) 15.3 g/dL 12.0-15.0 HEMATOCRIT (BEAKER) (test gmvv=589) 45.6 % 36.0-45.0 MEAN CORPUSCULAR VOLUME (BEAKER) (test ysbx=875) 95.5 fL 82.0-99.0 MEAN CORPUSCULAR HEMOGLOBIN (BEAKER) (test pwyo=163) 32.1 pg 27.0-33.0 MEAN CORPUSCULAR HEMOGLOBIN CONC (BEAKER) (test kqin=686) 33.6 g/dL 32.0-36.0 RED CELL DISTRIBUTION WIDTH (BEAKER) (test daab=804) 11.3 % 10.3-14.2 PLATELET COUNT (BEAKER) (test dbpp=997) 174 10e3/ L 150-430 MEAN PLATELET VOLUME (BEAKER) (test rifu=286) 8.6 fL 6.5-10.5 NEUTROPHILS RELATIVE PERCENT (BEAKER) (test lkxa=843) 58 % LYMPHOCYTES RELATIVE PERCENT (BEAKER) (test oaqt=314) 35 % MONOCYTES RELATIVE PERCENT (BEAKER) (test uzqh=427) 5 % EOSINOPHILS RELATIVE PERCENT (BEAKER) (test nvnx=610) 1 % BASOPHILS RELATIVE PERCENT (BEAKER) (test sdob=917) 1 % NEUTROPHILS ABSOLUTE COUNT (BEAKER) (test wecn=647) 3.37 10e3/ L 1.80-8.00 LYMPHOCYTES ABSOLUTE COUNT (BEAKER) (test raxn=654) 2.01 10e3/ L 1.48-4.50 MONOCYTES ABSOLUTE COUNT (BEAKER) (test wcsl=304) 0.29 10e3/ L 0.00-1.30 EOSINOPHILS ABSOLUTE COUNT (BEAKER) (test oszv=924) 0.06 10e3/ L 0.00-0.50 BASOPHILS ABSOLUTE COUNT (BEAKER) (test xbew=274) 0.04 10e3/ L 0.00-0.20
[2019-04-03] MEDS ORDERED: ONDANSETRON HCL INJ 2MG/ML 2ML 2 MG/ML VIAL IV STA (04:51)
[2019-04-03] MEDS ORDERED: PANTOPRAZOLE 40 MG 10ML VIAL IV STA (04:51)
[2019-04-03 04:59] LABS: BASOPHILS % 0.4 % (0.0-1.0); EOSINOPHILS # (AUTO) 0.1 (0.0-0.4); EOSINOPHILS % 1.8 % (0.0-6.0); HEMATOCRIT 41.5 % (34.2-44.1); HEMOGLOBIN 14.3 g/dL (12.0-16.0); LYMPHOCYTES # (AUTO) 2.3 (1.0-3.2); LYMPHOCYTES % 41.5 % (18.0-39.1); MEAN CORPUSCULAR HEMOGLOBIN 31.6 pg (28-32); MEAN CORPUSCULAR HGB CONC 34.5 g/dL (31-35); MEAN CORPUSCULAR VOLUME 91.6 fL (81-99); MONOCYTES # (AUTO) 0.4 (0.2-0.8); MONOCYTES % 7.3 % (4.4-11.3); NEUTROPHILS # (AUTO) 2.8 (2.1-6.9); NEUTROPHILS % 48.8 % (38.7-80.0); PLATELET COUNT 161 x10e3/uL (140-360); RED BLOOD COUNT 4.53 x10e6/uL (3.6-5.1); RED CELL DISTRIBUTION WIDTH 12.9 % (11.7-14.4)
[2019-04-03] MEDS ORDERED: DICYCLOMINE HCL 20 MG/2 ML VIAL IM ONE (05:00)
[2019-04-03 05:01] LABS: BILIRUBIN,URINE NEGATIVE (NEGATIVE); CLARITY,URINE SL CLOUDY (CLEAR); COLOR,URINE YELLOW (YELLOW); KETONES,URINE NEGATIVE (NEGATIVE); LEUKOCYTE ESTERASE ,URINE NEGATIVE (NEGATIVE); NITRITE,URINE NEGATIVE (NEGATIVE); PROTEIN,URINE DIPSTICK 1+ (NEGATIVE); URINE UROBILINOGEN 0.2 mg/dL (0.2 - 1)
[2019-04-03 05:05] LABS: PREGNANCY TEST, URINE NEGATIVE (NEGATIVE)
[2019-04-03 05:11] LABS: BACTERIA,URINE MODERATE /HPF; EPITHELIAL CELLS,URINE MODERATE /LPF; MUCUS,URINE MODERATE (RARE); RBC,URINE 21-50 /HPF (0-5)
[2019-04-03 05:25] LABS: ALANINE AMINOTRANSFERASE 14 IU/L (0-55); ALBUMIN 4.2 g/dL (3.5-5.0); ALBUMIN/GLOBULIN RATIO 1.3 (0.8-2.0); ALKALINE PHOSPHATASE 50 IU/L (40-150); ANION GAP 14.6 mmol/L (8-16); BLOOD UREA NITROGEN 10 mg/dL (7-26); BUN/CREATININE RATIO 14 (6-25); CALCIUM 9.4 mg/dL (8.4-10.2); CARBON DIOXIDE 24 mmol/L (22-29); CHLORIDE 106 mmol/L (98-107); EST GLOMERULAR FILTRATION RATE > 60 ML/MIN (60-); GLUCOSE 108 mg/dL (74-118); POTASSIUM 3.6 mmol/L (3.5-5.1); SODIUM 141 mmol/L (136-145)
[2019-04-03 05:26] LABS: LIPASE 51 U/L (8-78)
[2019-04-03 05:36] LABS: AMYLASE 80 U/L (25-125)
[2019-04-03 06:30] VITALS: BP 131/86
--- NOTE | 2019-04-03 07:24 | Diagnostic Imaging Report ---
EXAMINATION: Right upper quadrant ultrasound CLINICAL INDICATION: Right upper quadrant pain COMPARISON: None DISCUSSION: Transverse and longitudinal images of the right upper quadrant were obtained. The liver is normal in size measuring 14.8centimeters in length in the right midclavicular line and shows increased echogenicity. No focal masses are seen in the liver. There is no intrahepatic biliary dilatation. The common bile duct is normal in caliber and measures 0.3 cm. The main portal vein is normal in caliber and measures 1 cm with normal hepatopetal flow. The gallbladder contains gallstones and sludge. The visualized portions of the pancreatic body are unremarkable. The right kidney measures 11.9 centimeters in length. There is normal renal cortical echogenicity and no hydronephrosis, mass or shadowing calculi. The visualized portions of the great vessels are normal. No free fluid is seen. IMPRESSION: Cholelithiasis and sludge. No cholecystitis. Signed by: Dr. Stanford Dotson M.D. on 04/03/2019 7:21 AM
== END 2019-04-03 06:35 | disposition home or self-care (01) ==
LOC: ER 04:15
DX: R10.11 Right upper quadrant pain (principal); R11.0 Nausea; K80.70 Calculus of gallbladder and bile duct without cholecystitis without obstruction; N30.91 Cystitis, unspecified with hematuria; E11.9 Type 2 diabetes mellitus without complications; Z98.84 Bariatric surgery status
CPT/HCPCS: 36415; 76705; 80053; 81001; 81025; 82150; 83690; 85025; 99284; C9113; J0500; J2405

== ENCOUNTER → 2020-02-22 | Emergency (ER) | payer SELFPAY ==
--- OUTSIDE RECORDS SUMMARY | 2020-02-22 18:21 | XMS REPORT | Clinical Summary ---
Author Author JOCE [facility] Address Unknown Phone Unavailable Care Team Providers Care Bisque Finisher Name Role Phone Yuriy Loza MD PCP Unavailable Allergies No Known Allergies Medications End Date Status Medication Sig Dispensed Refills Start Date Active multivitamin capsule Take 1 0 capsule by mouth daily. Active ferrous sulfate (IRON Take by 0 ORAL) mouth. Active cyanocobalamin, vitamin Take by 0 B-12, (VITAMIN B-12 ORAL) mouth. 10/06/2020 Active acetaminophen (TYLENOL) Take 2 30 tablet 0 325 MG tablet tablets (650 0 mg total) by mouth every 4 (four) hours as needed for up to 360 days. 04/06/2019 Discontinued metFORMIN (GLUCOPHAGE) Take 1,000 mg 0 1000 MG tablet by mouth 2 (two) times daily with breakfast and dinner. 08/10/2019 Discontinued insulin glargine Inject 20 0 (BASAGLAR KWIKPEN U-100 Units INSULIN) 100 unit/mL (3 subcutaneousl mL) InPn y nightly . 08/10/2019 Discontinued insulin aspart U-100 Inject 0 (NOVOLOG) 100 unit/mL subcutaneousl InPn y 3 (three) times daily with meals. 08/10/2019 Discontinued dulaglutide (TRULICITY) Inject 1.5 mg 0 1.5 mg/0.5 mL PnIj subcutaneousl y every 7 days . 08/10/2019 Discontinued semaglutide (OZEMPIC) Inject 0.5 mg 0 0.25 mg or 0.5 mg (2 subcutaneousl mg/1.5 mL) subcutaneous y once a penIndications: type 2 week. diabetes mellitus 08/10/2019 Discontinued acetaminophen-codeine Take 1 tablet 0 (TYLENOL #3) 300-30 mg by mouth per tablet every 4 (four) hours as needed for Pain. 08/10/2019 Discontinued nitrofurantoin Take 100 mg 0 (MACRODANTIN) 100 MG by mouth 2 capsule (two) times daily. 04/18/2019 traMADol (ULTRAM) 50 mg Take 1 tablet 30 tablet 0 tablet (50 mg total) 9 by mouth every 6 (six) hours as needed for Pain for up to 10 days. Max Daily Amount: 200 mg 04/18/2019 HYDROcodone-acetaminophen Take 1 tablet 30 tablet 0 (NORCO 10-325) 10-325 mg by mouth 9 per tablet every 6 (six) hours as needed for Pain for up to 10 days. Max Daily Amount: 4 tablets 10/12/2019 Discontinued CALCIUM ORAL Take by 0 mouth. 10/12/2019 Discontinued ondansetron (ZOFRAN-ODT) Take 1 tablet 20 tablet 0 4 MG disintegrating (4 mg total) 0 tablet by mouth every 8 (eight) hours as needed for Nausea for up to 7 days. 10/12/2019 Discontinued acetaminophen-codeine Take 1-2 15 tablet 0 09/21 (TYLENOL #3) 300-30 mg tablets by 0 per tablet mouth every 6 (six) hours as needed for Pain for up to 10 days. Max Daily Amount: 8 tablets 10/12/2019 Discontinued ketorolac (TORADOL) 10 mg Take 1 tablet 10 tablet 0 tablet (10 mg total) 0 by mouth 3 (three) times daily as needed for Pain for up to 5 days. 11/12/2019 tamsulosin (FLOMAX) 0.4 Take 1 30 capsule 0 mg Cap 24 hr capsule capsule (0.4 0 mg total) by mouth daily for 30 days. Active Problems Problem Noted Date VSD (ventricular septal defect) 10/12/2019 Left ureteral calculus 10/10/2019 Gall bladder stones 04/08/2019 RUQ pain 04/06/2019 Type 2 diabetes mellitus 04/06/2019 History of weight loss surgery 03/16/2019 Obesity 01/03/2019 Liver mass 03/12/2016 Last Assessment & Plan: Recent CT scan (02/26/2016) reveals multi ple enhancing liver lesions in the right hepatic lobe, largest measuring 1 .7 cm. Lesions are indeterminate. She has multiple risk factors of liver disease although no biochemical or radiographic evidence of advanced liver disease. Updated labs today evaluating hepati c function along with tumor markers. Outside CT scan will be reviewed at radiology conference next week. She will likely need repeat imaging in 6 mo nths to document stability of masses. Immunity status testing 03/12/2016 Last Assessment & Plan: All patients with chronic liver disease , regardless of etiology, should be immunized to prevent hepatitis A and he patitis B if they are not already immune. We will test for immunity to swapnil th viruses - vaccine recommendations will follow. Encounters Care Team Description Date Type Specialty Adrian Betts MD Ureteral stone (Primary Dx) 11/03/2019 Outside Orders Central Scheduling Rosita Verde 10/12/2019 Outside Orders Radiology Domenic Maradiaga MD [place], Narendra, MD Shah, Kavita K, MD Left ureteral calculus (Primary Dx); Acute left flank pain; Non-intractable vomiting with nausea, unspecified vomiting type; Intractable pain; Hydronephrosis with urinary obstruction due to ureteral calculus 10/10/[address] dicine - 10/12/2019 10/10/2019 Travel Luis Alfredo Ceron [facility] UPPER ENDOSCOPY,BIOPSY 08/16/2019 Surgery Tanisha Martin MD 08/16/2019 Anesthesia Event Luis Alfredo Ceron [facility] 08/16/2019 Hospital Encounter 08/10/2019 Hospital Pre-Admission Testi ng Encounter Ty Streeter MD 04/08/2019 Orders Only Gastroenterology Mary Hoffman MD LAPAROSCOPY,CHOLECYSTECTOMY 04/07/2019 Surgery Mariama Genao, MITUL 04/07/2019 Anesthesia Event Morteza Bernal MD Kemal, Nejmudin Reshad, MD RUQ pain; History of weight loss surgery; Class 2 obesity due to excess calories with body mass index (BMI) of 35.0 to 35.9 in adult, unspecified whether serious comorbidity present; Type 2 diabetes mellitus with complication, without long-term current use of insulin (HCC) 04/06/2019 [facility] General Internal Ct dicine - Encounter 04/08/2019 Morteza Bernal MD 04/06/2019 Orders Only Internal Medicine Cailin Mishra RN long-term follow-up 02/28/2019 Telephone 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 Never 11/30/2018 How many drinks containing alcohol do you have on No t asked a typical day when you are [...] Vital Signs Time Taken Vital Sign Reading 10/12/2019 11:18 AM FIELD IDENTIFICATION SPECIALIST Blood Pressure 119/64 10/12/2019 11:18 AM FIELD IDENTIFICATION SPECIALIST Pulse 78 10/12/2019 11:18 AM FIELD IDENTIFICATION SPECIALIST Temperature 37.3 C (99.2 F) 10/12/2019 11:18 AM FIELD IDENTIFICATION SPECIALIST Respiratory Rate 17 10/12/2019 11:18 AM FIELD IDENTIFICATION SPECIALIST Oxygen Saturation 98% - Inhaled Oxygen - Concentration 10/10/2019 4:33 AM FIELD IDENTIFICATION SPECIALIST Weight 88.5 kg (195 lb) 10/10/2019 4:33 AM FIELD IDENTIFICATION SPECIALIST Height 162.6 cm (5' 4") 10/10/2019 4:33 AM FIELD IDENTIFICATION SPECIALIST Body Mass Index 33.47 Plan of Treatment Health Maintenance Due Date Last Done Comments PNEUMOCOCCAL VACCINE 2-64 1989 YEARS AT RISK (1 of 1 - PPSV23) CERVICAL CANCER SCREENING 2004 PAP ONLY (Age 21-65) HEMOGLOBIN A1C 04/06/2019 INFLUENZA VACCINE Completed 06/20/2019, 018, 06/18/2017 Implants Device Identifier Shelf Expiration Date Model / Serial / L ot Implanted Type Area Manufactur er 04/19/2021 [id number] / / [id number] Stplr Endo Yudy Ult Univ Blk - Graft/Patc N/A: Stomach WL GORE & [id number] ASSC:MED Implanted: Qty: 4 on 01/03/2019 by Jim Davidson MD 04/19/2021 [id number] / / [id number] Seamguard Bioabsorbable Staple Line N/A: Stomach G ORE Reinforcement Black Implanted: Qty: 1 on 01/03/2019 by Jim Cleveland MD Procedures Comments Procedure Name Priority Date/Time Associated Diag nosis POCT-GLUCOSE METER Routine 10/12/2019 1:20 PM FIELD IDENTIFICATION SPECIALIST POCT-GLUCOSE METER Routine 10/12/2019 12:13 PM FIELD IDENTIFICATION SPECIALIST XR ABDOMEN / KUB 1 VIEW Routine 10/12/2019 10:11 AM FIELD IDENTIFICATION SPECIALIST POCT-GLUCOSE METER Routine 10/12/2019 7:58 AM FIELD IDENTIFICATION SPECIALIST POCT-GLUCOSE METER Routine 10/11/2019 9:41 PM FIELD IDENTIFICATION SPECIALIST POCT-GLUCOSE METER Routine 10/11/2019 5:12 PM FIELD IDENTIFICATION SPECIALIST POCT-GLUCOSE METER Routine 10/11/2019 12:20 PM FIELD IDENTIFICATION SPECIALIST POCT-GLUCOSE METER Routine 10/11/2019 8:16 [address]IF[address] ABDOMEN/PELVIS WITHOUT STAT 10/10/2019 IV CONTRAST 6:13 AM FIELD IDENTIFICATION SPECIALIST SCREEN, URINE STAT 10/10/2019 5:05 AM FIELD IDENTIFICATION SPECIALIST URINALYSIS W/ MICROSCOPIC STAT 10/10/2019 5:05 AM FIELD IDENTIFICATION SPECIALIST CBC W/PLT COUNT & AUTO STAT 10/10/2019 DIFFERENTIAL 5:04 AM FIELD IDENTIFICATION SPECIALIST HEPATIC FUNCTION PANEL STAT 10/10/2019 5:04 AM FIELD IDENTIFICATION SPECIALIST LIPASE STAT 10/10/2019 5:04 AM FIELD IDENTIFICATION SPECIALIST CBC W/PLT COUNT & AUTO STAT 10/10/2019 DIFFERENTIAL 5:04 AM FIELD IDENTIFICATION SPECIALIST BASIC METABOLIC PANEL (7) STAT 10/10/2019 5:04 AM FIELD IDENTIFICATION SPECIALIST REPORT OF PROCEDURE - 08/16/2019 ENDOSCOPY URL 9:52 AM FIELD IDENTIFICATION SPECIALIST UPPER ENDOSCOPY,BIOPSY 08/16/2019 Gastroesophage al reflux 9:30 AM FIELD IDENTIFICATION SPECIALIST disease, esophagitis presence not specified Status post gastric surgery TISSUE EXAM AP Routine 08/16/2019 9:26 AM FIELD IDENTIFICATION SPECIALIST POCT , URINE STAT 08/16/2019 8:10 AM FIELD IDENTIFICATION SPECIALIST RHYTHM STRIP - SCAN 04/10/2019 12:10 PM CDT TRANSFUSION SERVICE 04/08/2019 REPORT - SCAN 6:00 PM CDT POCT-GLUCOSE METER Routine 04/08/2019 1:05 PM CDT POCT-GLUCOSE METER Routine 04/08/2019 7:30 AM CDT CBC W/PLT COUNT & AUTO Routine 04/08/2019 DIFFERENTIAL 5:11 AM CDT CBC W/PLT COUNT & AUTO Routine 04/08/2019 DIFFERENTIAL 5:11 AM CDT MAGNESIUM Routine 04/08/2019 5:11 AM CDT HEPATIC FUNCTION PANEL Routine 04/08/2019 5:11 AM CDT BASIC METABOLIC PANEL (7) Routine 04/08/2019 5:11 AM CDT POCT-GLUCOSE METER Routine 04/07/2019 9:12 PM CDT POCT-GLUCOSE METER Routine 04/07/2019 6:50 PM CDT POCT-GLUCOSE METER Routine 04/07/2019 4:45 PM CDT TISSUE EXAM AP Routine 04/07/2019 3:47 PM CDT LAPAROSCOPY,CHOLECYSTECTO 04/07/2019 Acute sushma cystitis MY 2:35 PM CDT Special Needs (REQ:TF) POCT-GLUCOSE METER Routine 04/07/2019 1:55 PM CDT POCT-GLUCOSE METER Routine 04/07/2019 12:16 PM CDT POCT-GLUCOSE METER Routine 04/07/2019 11:13 AM CDT CBC W/PLT COUNT & AUTO Routine 04/07/2019 DIFFERENTIAL 3:48 AM CDT TYPE AND SCREEN, Routine 04/07/2019 AUTOMATED 3:48 AM CDT CBC W/PLT COUNT & AUTO Routine 04/07/2019 DIFFERENTIAL 3:48 AM CDT MAGNESIUM Routine 04/07/2019 3:48 AM CDT HEPATIC FUNCTION PANEL Routine 04/07/2019 3:48 AM CDT BASIC METABOLIC PANEL (7) Routine 04/07/2019 3:48 AM CDT POCT-GLUCOSE METER Routine 04/06/2019 11:56 PM CDT URINALYSIS W/ REFLEX Routine 04/06/2019 URINE CULTURE 9:51 PM CDT SCREEN, URINE Routine 04/06/2019 9:51 PM CDT US ABDOMEN LIMITED STAT 04/06/2019 9:18 PM CDT POCT-GLUCOSE METER Routine 04/06/2019 6:51 PM CDT CBC W/PLT COUNT & AUTO Routine 04/06/2019 DIFFERENTIAL 5:01 PM CDT CBC W/PLT COUNT & AUTO Routine 04/06/2019 DIFFERENTIAL 5:01 PM CDT MAGNESIUM Routine 04/06/2019 5:01 PM CDT LIPID PANEL Routine 04/06/2019 5:01 PM CDT PROTHROMBIN TIME/INR Routine 04/06/2019 5:01 PM CDT PT/APTT Routine 04/06/2019 5:01 PM CDT HEPATIC FUNCTION PANEL Routine 04/06/2019 5:01 PM CDT BASIC METABOLIC PANEL (7) Routine 04/06/2019 5:01 PM CDT after 02/21/2019 Results * POC-Glucose meter (10/12/2019 1:20 PM FIELD IDENTIFICATION SPECIALIST) Only the most recent of 17 results within the time period is included. POC-Glucose Meter 70Comment: : TESTED AT [facility] 70 - 110 mg/dL [address] [address]: Lens Inserter/Field Test Engineer ID = [id number] for CHARLIE MANTILLA Specimen Blood Performing Organization Address City/State/Zipcode Ph one Number [address] [address] MED[facility] CENTER * XR abdomen / KUB 1 view (10/12/2019 10:11 AM FIELD IDENTIFICATION SPECIALIST) Specimen Narrative Performed At FINAL REPORT RIS TECHNIQUE: Supine radiographs of the ab domen dated 10/12/2019 HISTORY: Ureteral stone COMPARISON: CT scan of the abdomen and pelvis dated 10/10/2019 IMPRESSION: No air-filled, dilated loops of bowel t o suggest obstruction. No free intraperitoneal air. No abnormal soft t issue mass. 2 mm calcification will be difficult to visualize on plain films. No calcification seen to suggest a renal calculus. No fractur e. Signed: Елена Kolb MD Report Verified Date/Time: 0 10:43:53 Reading Location: [facility] Reading Ro om Procedure Note Interface, External Ris In - 10/12/2019 10:46 AM FIELD IDENTIFICATION SPECIALIST FINAL REPORT TECHNIQUE: Supine radiographs of the abdomen dated 10/12/2019 HISTORY: Ureteral stone COMPARISON: CT scan of the abdomen and pelvis dated 10/10/2019 IMPRESSION: No air-filled, dilated loops of bowel to suggest obstruction. No free intraperitoneal air. No abnormal soft tissue mass. 2 mm calcification will be difficult to visualize on plain films. No calcification seen to suggest a renal calculus. No fracture. Signed: Елена Kolb MD Report Verified Date/Time: 10/12/2019 10:43:53 Reading Location: [facility] Reading Room Performing Organization Address City/State/Zipcode Ph one Number GE RIS * CT abdomen/pelvis without iv contrast (10/10/2019 6:13 AM FIELD IDENTIFICATION SPECIALIST) Specimen Narrative Performed At FINAL REPORT GE RIS CT, ABDOMEN \\T\\ PELVIS, WITHOUT IV CONT RAST CLINICAL HISTORY: Flank pain, kidney st one suspected abdominal pain Technique: Multiple axial images of the abdomen and pelvis were performed without contrast. Coronal and sagittal reformats obtained. Oral contrast was not administered. This exam was performed according to [facility] departmental dose-optimization program, which includ es automated exposure control, adjustment of the mA and/or kV accordin g to patient size and/or use of the iterative reconstruction [id number] ue. COMPARISON: None. FINDINGS: LOWER CHEST: Pain opacities suggestive of passive atelectasis. LIVER: No acute findings. BILIARY SYSTEM: No abnormal ductal dila tation. Status post cholecystectomy. PANCREAS: No acute findings. SPLEEN: No acute findings. ADRENAL GLANDS: Unremarkable. KIDNEYS URETERS: Mild left hydronephros is with left proximal ureter 2 mm calculus. No right hydronephrosis. GASTROINTESTINAL/MESENTERY: No bowel ob struction or abnormal wall thickening. Normal appendix. Gastroplas ty changes. URINARY BLADDER: No acute findings. REPRODUCTIVE ORGANS: No acute findings. PERITONEUM/RETROPERITONEUM: No free air or free fluid VESSELS: No acute findings. SOFT TISSUES: No acute findings. BONES: No suspicious osseous lesion. L5 -S1 degenerative disc disease with marginal osteophyte, severe left g reater than right neural foraminal stenosis and mild to moderate central spinal canal stenosis. Other: None IMPRESSION: Mild left hydronephrosis due to 2 mm ca lculus within the proximal left ureter. Signed: Zak Lindquist MD Report Verified Date/Time: 0 06:20:05 Procedure Note Interface, External Ris In - 10/10/2019 6:23 AM FIELD IDENTIFICATION SPECIALIST FINAL REPORT CT, ABDOMEN \\T\\ PELVIS, WITHOUT IV CONTRAST CLINICAL HISTORY: Flank pain, kidney stone suspected abdominal pain Technique: Multiple axial images of the abdomen and pelvis were performed without contrast. Coronal and sagittal reformats obtained. Oral contrast was not administered. This exam was performed according to our departmental dose-optimization program, which includes automated exposure control, adjustment of the mA and/or kV according to patient size and/or use of the iterative reconstruction technique. COMPARISON: None. FINDINGS: LOWER CHEST: Pain opacities suggestive of passive atelectasis. LIVER: No acute findings. BILIARY SYSTEM: No abnormal ductal dilatation. Status post cholecystectomy. PANCREAS: No acute findings. SPLEEN: No acute findings. ADRENAL GLANDS: Unremarkable. KIDNEYS URETERS: Mild left hydronephrosis with left proximal ureter 2 mm calculus. No right hydronephrosis. GASTROINTESTINAL/MESENTERY: No bowel obstruction or abnormal wall thickening. Normal appendix. Gastroplasty changes. URINARY BLADDER: No acute findings. REPRODUCTIVE ORGANS: No acute findings. PERITONEUM/RETROPERITONEUM: No free air or free fluid VESSELS: No acute findings. SOFT TISSUES: No acute findings. BONES: No suspicious osseous lesion. L5-S1 degenerative disc disease with marginal osteophyte, severe left greater than right neural foraminal stenosis and mild to moderate central spinal canal stenosis. Other: None IMPRESSION: Mild left hydronephrosis due to 2 mm calculus within the proximal left ureter. Signed: Zak Lindquist MD Report Verified Date/Time: 10/10/2019 06:20:05 Performing Organization Address [facility] Ph one Number RIS * Screen, urine (10/10/2019 5:05 AM FIELD IDENTIFICATION SPECIALIST) Only the most recent of 2 results within the time period is included. Preg Test, Ur Negative [facility] Specimen Urine Performing Organization Address [facility] Ph one Number [address] [address] [facility] * Urinalysis w/Microscopic (10/10/2019 5:05 AM FIELD IDENTIFICATION SPECIALIST) Color, UA Yellow [facility] Clarity, UA Hazy [facility] Specific [place], UA 1.018 1.001 - 1.035 [facility] pH, UA 5.5 5.0 - 8.0 [facility] Protein, UA 50 mg/dL (A) Negative [facility] Glucose, UA 100 mg/dL (A) Negative [facility] Ketones, UA Negative Negative [facility] Bilirubin, UA Negative Negative [facility] Blood, UA Large (A) Negative [facility] Nitrite, UA Negative Negative [facility] Leukocytes, UA Small (A) Negative [facility] Urobilinogen, UA 2.0 (H) 0.2 - 1.0 mg/dL [facility] RBC, UA 349 /HPF [facility] WBC, UA 7 /HPF [facility] Bacteria, UA Occasional [facility] Mucus Many [facility] Squam Epithel, UA 8 /HPF [facility] Crystals, Urine Moderate [facility] Specimen Source [facility] Specimen Urine Narrative Performed At Lens Inserter ID - [auto] [facility] Lens Inserter ID - tech [facility] Performing Organization Address City/State/Zipcode Ph one Number [facility] [address] [facility] [place] [address] [facility] * CBC with platelet count + automated diff (10/10/2019 5:04 AM FIELD IDENTIFICATION SPECIALIST) Only the most recent of 4 results within the time period is included. WBC 6.9 3.5 - 10.5 K/L [facility] RBC 4.34 3.93 - 5.22 M/L [facility] Hemoglobin 13.7 11.2 - 15.7 GM/DL [facility] Hematocrit 40.9 34.1 - 44.9 % [facility] MCV 94.2 79.4 - 94.8 fL [facility] MCH 31.6 25.6 - 32.2 pg [facility] MCHC 33.5 32.2 - 35.5 GM/DL [facility] RDW 12.9 11.7 - 14.4 % [facility] Platelets 164 150 - 450 K/CU MM [facility] MPV 11.3 9.4 - 12.3 fL [facility] nRBC 0 0 - 0 /100 WBC [facility] % Neutros 76 % [facility] % Lymphs 19 % [facility] % Monos 4 % [facility] % Eos 0 % [facility] % Baso 0 % [facility] # Neutros 5.19 1.56 - 6.13 K/L [facility] # Lymphs 1.33 1.18 - 3.74 K/L [facility] # Monos 0.29 0.24 - 0.36 K/L [facility] # Eos 0.02 (L) 0.04 - 0.36 K/L [facility] # Baso 0.02 0.01 - 0.08 K/L [facility] Immature 0 0 - 1 % [facility] Granulocytes-Relative [facility] Specimen Blood Performing Organization Address [facility] [place] [address] [phone] [place] [address] * Lipase (10/10/2019 5:04 AM FIELD IDENTIFICATION SPECIALIST) Lipase 56 8 - 78 U/L [facility] Specimen Blood Narrative Performed At Lens Inserter ID - [facility] Performing Organization Address [facility] [place] [address] [address] [phone] [place] [address] * Hepatic function panel (10/10/2019 5:04 AM FIELD IDENTIFICATION SPECIALIST) Only the most recent of 4 results within the time period is included. Protein, Total 7.2 6.0 - 8.3 gm/dL [facility] Albumin 4.4 3.5 - 5.0 g/dL [facility] Total Bilirubin 0.7 0.2 - 1.2 mg/dL [facility] Bilirubin, Direct 0.4 0.1 - 0.5 mg/dL [facility] Alkaline Phosphatase 61 40 - 150 U/L [facility] AST 15 5 - 34 U/L [facility] ALT 20 6 - 55 U/L [facility] Specimen Blood Narrative Performed At Lens Inserter ID - [facility] Performing Organization Address [facility] [place] [address] [address] [phone] [place] [address] * Basic Metabolic Panel (10/10/2019 5:04 AM FIELD IDENTIFICATION SPECIALIST) Only the most recent of 4 results within the time period is included. Sodium 142 136 - 145 meq/L [facility] Potassium 3.9 3.5 - 5.1 meq/L [facility] Chloride 110 (H) 98 - 107 meq/L [facility] CO2 22 22 - 29 meq/L [facility] BUN 8 7 - 21 mg/dL [facility] Creatinine 0.71 0.57 - 1.25 mg/dL [facility] Glucose 179 (H) 70 - 105 mg/dL [facility] Calcium 9.2 8.4 - 10.2 mg/dL [facility] EGFR 94Comment: ESTIMATED GFR IS mL/min/1.73 sq m [facility] NOT ACCURATE CREATININE [facility] CLEARANCE IN PREDICTING GLOMERULAR FILTRATION RATE. ESTIMATED GFR IS NOT APPLICABLE FOR DIALYSIS PATIENTS. Specimen Blood Narrative Performed At Lens Inserter ID - [place] [facility] Performing Organization Address City/State/[facility] Ph one Number [place] [address] [facility] * REPORT OF PROCEDURE - ENDOSCOPY URL (08/16/2019 9:52 AM FIELD IDENTIFICATION SPECIALIST) Narrative Performed At This result has an attachment that is n ot available. * Tissue Exam (08/16/2019 9:26 AM FIELD IDENTIFICATION SPECIALIST) Only the most recent of 2 results within the time period is included. Case Report Surgical Pathology [facility] TH Report [facility] Case: [id number] Authorizing Provider:Luis Alfredo Ceronected: 08/16/2019 0926 [facility] Received: 08/16/2019 1023 SERVICES Pathologist: Nayeli Mortensen MD Specimens: A) - Stomach,Antrum, gastric antrum biopsy B) - Biopsy, Gastric, gastric incisura biopsy C) - Biopsy, Gastric, gastric body biopsy D) - Biopsy, Gastric, gastric fundus biopsy DIAGNOSIS A. STOMACH, ANTRUM, BIOPSIES: [facility] - CHEMICAL/REACTIVE [facility] GASTROPATHY B. STOMACH, INCISURA, BIOPSIES: - PROTON PUMP INHIBITOR EFFECT, MILD C. STOMACH, BODY, BIOPSIES: - CHRONIC INACTIVE GASTRITIS D. STOMACH, FUNDUS, BIOPSIES: - PPI EFFECT Signing Pathologist Direct Phone Line: [phone] CPT Code(s) NZ/ew J[place]E [place] H [address] x4, [id number] [facility] CLINICAL HISTORY Gastroesophageal reflux [facility] disease, esophagitis presence [facility] not specified, status post gastric surgery. GROSS DESCRIPTION A. Received in formalin [facility] labeled with the patient's [facility] name, accession number and "stomach antrum" are three null-pink soft tissue fragments that measure up to 0.2 cm in greatest dimension, which are filtered and submitted in toto in A1. B. Received in formalin labeled with the patient's name, accession number and "gastric biopsy" are three null-pink tissue fragments measuring up to 0.3 cm in greatest dimension, which are filtered and submitted in toto in B1. C. Received in formalin labeled with the patient's name, accession number and "gastric body" are multiple null-pink tissue fragments measuring up to 0.3 cm in greatest dimension, which are filtered and submitted in toto in C1. D. Received in formalin labeled with the patient's name, accession number and "gastric fundus" are three null-pink tissue fragments measuring up to 0.3 cm in greatest dimension, which are filtered and submitted in toto in D1. PA/ew MICROSCOPIC DESCRIPTION A-D. No Helicobacter pylori [facility] are seen on H&E or Warthin [facility] Starry stains. No intestinal metaplasia, dysplasia or malignancy is seen. SPECIAL STUDIES The interpretation of this [facility] case included the use of [facility] immunohistochemistry or special stains. Control Slides Examined: In-house known positive controls were evaluated along with the test tissue. These control slides run alongside of the patients sample show appropriate staining. Internal positive and negative controls when available are evaluated. Specimen Tissue Tissue - Gastric biopsy sample (specimen) Tissue - Gastric biopsy sample (specimen) Tissue - Gastric biopsy sample (specimen) Performing Organization Address City/State/Zipcode Ph one Number JOCE MAYB[facility]Y [facility] [place], [place] [address] [phone] [place] [address] * POCT , urine (08/16/2019 8:10 AM FIELD IDENTIFICATION SPECIALIST) Test Urine, POC Negative Control line present?, Yes POC Background clear?, POC Yes UPT Cassette Lot #, POC [id number] UPT Cassette Expiration 11-17-20 Date, POC Specimen Urine * RHYTHM STRIP - SCAN (04/10/2019 12:10 PM CDT) Narrative Performed At This result has an attachment that is n ot available. * TRANSFUSION SERVICE REPORT - SCAN (04/08/2019 6:00 PM CDT) Narrative Performed At This result has an attachment that is n ot available. * Magnesium (04/08/2019 5:11 AM CDT) Only the most recent of 3 results within the time period is included. Magnesium 1.8Comment: Specimen slightly 1.6 - 2.6 mg/dL [facility] hemolyzed [facility] Specimen Blood Performing Organization Address [facility] Ph one Number [place] [address] [phone] * Type and screen, automated (04/07/2019 3:48 AM CDT) ABO/RH AUTOMATED (BEAKER) A POSITIVE [facility] Ab Scrn NEGATIVE [facility] Specimen Blood Performing Organization Address [facility] Ph one Number [address] [phone] [facility] * Urinalysis w/Microscopic + Reflex to Culture (04/06/2019 9:51 PM CDT) Color, UA Yellow [facility] Clarity, UA Clear [facility] Specific [place], UA 1.013 1.001 - 1.035 [facility] pH, UA 6.5 5.0 - 8.0 [facility] Protein, UA 10 mg/dL (A) Negative [facility] Glucose, UA Negative Negative [facility] Ketones, UA 10 mg/dL (A) Negative [facility] Bilirubin, UA Negative Negative [facility] Blood, UA Trace (A) Negative [facility] Nitrite, UA Negative Negative [facility] Leukocytes, UA Negative Negative [facility] Urobilinogen, UA 2.0 (H) 0.2 - 1.0 mg/dL [facility] RBC, UA 8 /HPF [facility] WBC, UA <1 /HPF [facility] Mucus Occasional [facility] Squam Epithel, UA 2 /HPF [facility] Specimen Source [facility] Specimen Urine Performing Organization Address City/State/Zipcode Ph one Number [facility] [address] [address] MEDICAL CENTER * US abdomen limited (04/06/2019 9:18 PM CDT) Specimen Narrative Performed At FINAL REPORT GELI INDICATION: suspected cholecysitis. ? s ymptomatic cholelithiasis COMPARISON: None. TECHNIQUE:Real-time transabdominal srivastava scale and color Doppler ultrasound of the abdomen. FINDINGS: Liver: Size: 15.0cm. Echogenicity: Increased parenc hymal echogenicity. Masses/lesions: None. Surface Nodularity: None. Intrahepatic bile ducts: Doris l. Common bile duct: 0.7 cm. MPV: 1.2cm. Gallbladder: Stones: Wall echo shadow compl ex seen within the gallbladder lumen may represent cholelithiasis. Sludge: There is debris seen w ithin the gallbladder lumen. Wall thickness: 0.4 cm. The ga llbladder lumen is nondistended. Pericholecystic fluid: None. Sonographic Garrett's sign: No sonographic Garrett's sign. Pancreas: Head and uncinate process: Not well seen secondary to poor acoustic windowing. Body and tail: Not well-seen. Right kidney: Size: 10.1 x 4.9 x 5.8 cm. Parenchyma: Normal echogenicit y. No cysts. No stones. Hydronephrosis: None. Ascites: None. Regional Vasculature: The visible abdom inal aorta, IVC and hepatic veins are patent. Additional findings: None. IMPRESSION: Increased hepatic parenchymal echogenic ity suggestive of hepatic steatosis. Gallbladder wall thickening with wall e cho shadow complex suggestive of cholelithiasis. Otherwise no finding s suspicious for acute cholecystitis such as gallbladder diste ntion or pericholecystic fluid if there is persistent clinical concern recommend further evaluation with HIDA scan. Mild prominence of the common bile duct , however the distal duct is not well seen. MRCP could be helpful fu rther evaluation if clinically indicated. Signed: Magdy Odom MD Report Verified Date/Time: 9 21:50:33 Procedure Note Interface, External Ris In - 04/06/2019 9:52 PM CDT FINAL REPORT INDICATION: suspected cholecysitis. ? symptomatic cholelithiasis COMPARISON: None. TECHNIQUE: Real-time transabdominal srivastava scale and color Doppler ultrasound of the abdomen. FINDINGS: Liver: Size: 15.0cm. Echogenicity: Increased parenchymal echogenicity. Masses/lesions: None. Surface Nodularity: None. Intrahepatic bile ducts: Normal. Common bile duct: 0.7 cm. MPV: 1.2cm. Gallbladder: Stones: Wall echo shadow complex seen within the gallbladder lumen may represent cholelithiasis. Sludge: There is debris seen within the gallbladder lumen. Wall thickness: 0.4 cm. The gallbladder lumen is nondistended. Pericholecystic fluid: None. Sonographic Garrett's sign: No sonographic Garrett's sign. Pancreas: Head and uncinate process: Not well seen secondary to poor acoustic windowing. Body and tail: Not well-seen. Right kidney: Size: 10.1 x 4.9 x 5.8 cm. Parenchyma: Normal echogenicity. No cysts. No stones. Hydronephrosis: None. Ascites: None. Regional Vasculature: The visible abdominal aorta, IVC and hepatic veins are patent. Additional findings: None. IMPRESSION: Increased hepatic parenchymal echogenicity suggestive of hepatic steatosis. Gallbladder wall thickening with wall echo shadow complex suggestive of cholelithiasis. Otherwise no findings suspicious for acute cholecystitis such as gallbladder distention or pericholecystic fluid if there is persistent clinical concern recommend further evaluation with HIDA scan. Mild prominence of the common bile duct, however the distal duct is not well seen. MRCP could be helpful further evaluation if clinically indicated. Signed: Magdy Odom MD Report Verified Date/Time: 04/06/2019 21:50:33 Performing Organization Address [facility] one Number GE RIS * PT/aPTT (04/06/2019 5:01 PM CDT) Protime 13.0 11.9 - 14.2 seconds [facility] INR 1.0 <=5.9 [facility] PTT 33.7 22.5 - 36.0 seconds [facility] Specimen Blood Narrative Performed At Effective 02/15/2019: PT Reference Range Change [facility] New: 11.9-14.2Previous: 11.7-14.7 [facility] RECOMMENDED COUMADIN/WARFARIN INR THERA PY RANGES STANDARD DOSE: 2.0-3.0Includes: PRO PHYLAXIS for venous thrombosis, systemic embolization; TREATMENT for venous thro mbosis and/or pulmonary embolus. HIGH RISK: Target INR is 2.5-3.5 for pa tients wiht mechanical heart valves. Performing Organization Address [facility] one Number [facility] [address] [place], [place] [address] MEDICAL CENTER * Prothrombin time/INR (04/06/2019 5:01 PM CDT) Protime 13.0 11.9 - 14.2 seconds [facility] INR 1.0 <=5.9 [facility] Specimen Blood Narrative Performed At Effective 02/15/2019: PT Reference Range Change [facility] Dante Jerome [facility] New: 11.9-14.2Previous: 11.7-14.7 [facility] RECOMMENDED COUMADIN/WARFARIN INR THERA PY RANGES STANDARD DOSE: 2.0-3.0Includes: PRO PHYLAXIS for venous thrombosis, systemic embolization; TREATMENT for venous thro mbosis and/or pulmonary embolus. HIGH RISK: Target INR is 2.5-3.5 for pa tients wiht mechanical heart valves. Performing Organization Address [facility] one Number [facility] [address] [place] [phone] [facility] * Lipid panel (04/06/2019 5:01 PM CDT) Triglycerides 133 mg/dL [facility] Cholesterol 184 mg/dL [facility] HDL 41 mg/dL [facility] LDL Calculated 116 mg/dL [facility] Specimen Blood Narrative Performed At Triglyceride Reference Range: [facility] Low Risk <150 [facility] R [id number] High Risk 200-499 Very High Risk>=500 Cholesterol Reference Range: Low Risk <200 [id number] High Risk>240 HDL Cholesterol Reference Range: Low Risk >=60 High Risk <40 LDL Cholesterol Reference Range: Optimal<100 Near [id number] Very High >=190 Performing Organization Address [facility] one Number [facility] [address] [place], [place] [address] [facility] after 02/21/2019 Insurance Payer Benefit Subscriber ID Type Phone Address Plan / Group [facility] [place] HMO xxxxxxxxx HMO/PO S CARE POS [employer] [phone] [id number] [address] ([place]) [place] [address] Advance Directives For more information, please contact: [facility] [address] [place] [address] Date Inactivated Comments Code Status Date Activated 10/12/2019 4:49 PM Full Code 10/10/2019 8:39 AM This code status was determined by: Patient 04/08/2019 4:04 PM Full Code 04/06/2019 4:14 PM This code status was determined by: Patient 01/05/2019 8:30 PM Full Code 01/03/2019 1:51 PM This code status was determined by: Patient 01/03/2019 1:50 PM Full Code 01/03/2019 5:31 AM This code status was determined by: Patient
--- OUTSIDE RECORDS SUMMARY | 2020-02-22 18:22 | XMS REPORT | Continuity of Care Document ---
Author Author [facility] t Organization [facility] Address [address] [place] [address] Phone Unavailable Care Team Providers Care Manager Transport Name Role Phone YURIY SMITH JR. PCP Dago EVANS, Yuriy Attphys Alpesh EVANS, Garcia Campbell Attphys Alpesh EVANS, Garcia Campbell Attphys BERHANE MARADIAGA Attphys Unavailable Berhane Maradiaga MD Attphys Kvng EVANS, Casimiro Attphys [phone] Amanda EVANS, K Carole Attphys Poly Verde Attphys Unavailable KOREY CERON Attphys Unavailable Korey Ceron Attphys Mario EVANS, Tanisha Attphys Ayanna EVANS, Yusra Attphys JUANJO MERINO Attphys Unavailable Gabe EVANS, Juanjo Attphys Martin EVANS, Bryant Padilla Attphys Syl EVANS, Josh Crawford Attphys Poly Genao CRNA Mariama Attphys [phone] Maykel Hoffman MD Attphys Ailyn GARCIAS Attphys Unavailable Tad MAY, Poly Simeon Attphys Unavailable Pieter CLEVELANDS Attphys Unavailable MARGARITO FIORE Attphys Unavailable CIVUNIGUNTA, CASIMIRO Admphys Unavailable OSMANY, KOREY LUIS ALFREDO Admphys Unavailable JUANJO MERINO Admphys Unavailable AWILDAVANI, Pieter JIM Admphys Unavailable Payers Payer Name Policy Type Policy Number Effective Date Expiration Date [facility] SELECT CHOICExxxx xxxxxHMO/POS xxxxxxxxx [facility] Problems Condition Name Condition Details Condition Category Status Onset Date Resolution Date Last Treatment Date Treating Clinician Comments Source VSD (ventricular septal defect) VSD (ventricular septal defect) Dis ease Active 2019-10-12 00:00:00 [facility] Left ureteral calculus Left ureteral calculus Disease Active 2019-10-10 00:00:00 [facility] Gall bladder stones Gall bladder stones Disease Active 2019-04-08 00:00 :00 [facility] Cente r RUQ pain RUQ pain Disease Active 2019-04-06 00:00:00 [facility] Type 2 diabetes mellitus Type 2 diabetes mellitus Disease Acti ve 2019-04-06 00:00:00 [facility] History of weight loss surgery History of weight loss surgery Disea se Active 2019-03-16 00:00:00 [facility] Obesity Obesity Disease Active 2019-01-03 00:00:00 [facility] Liver mass Liver mass Disease Active 2016-03-12 00:00:00 Last Assessment & Plan: Recent CT scan [...] 6 months to document stability of masses. [facility] Immunity status testing Immunity status testing Disease Active 2016-03-12 00:00:00 Last Assessment & Plan: All patients with chronic liver disease, regardless of etiology, should be immunized to prevent hepatitis A and hepatitis B if they are not already immune. We will test for immunity to both viruses - vaccine recommendations will follow. [facility] Allergies, Adverse Reactions, Alerts This patient has no known allergies or adverse reactions. Family History Family Member Diagnosis Comments Start Date Stop Date Source Natural brother Unremarkable [facility] Natural father Heart disease [facility] Natural father Hyperlipidemia [facility] Natural father Hypertension [facility] Natural sister Unremarkable [facility] Social History Social Habit Start Date Stop Date Quantity Comments Source History SDOH Alcohol Std Drinks [facility] History SDOH Alcohol Binge [facility] Sex Assigned At F [facility] History SDOH Alcohol Frequency 2018-11-30 00:00:00 2018-11-30 00:00:0 0 1 [facility] Smoking Status Start Date Stop Date Source Never smoker [facility] Medications Ordered Medication Name Filled Medication Name Start Date Stop Da te Current Medication? Ordering Clinician Indication Dosage Frequency Signature (SIG) Comments Components Source tamsulosin (FLOMAX) 0.4 mg Cap 24 hr capsule 00:00:00 2019-11-12 23:59:00 No .4mg QD Take 1 capsule (0.4 mg total) by mouth daily for 30 days. [facility] CALCIUM ORAL 2019-10-12 13:03:24 2019-10-12 00:00:00 No Take by mouth. [facility] acetaminophen (TYLENOL) 325 MG tablet 2019-10-12 00:00 :00 2020-10-06 23:59:00 No 650mg Take 2 tablets (650 mg total) by mouth every 4 (four) hours as needed for up to 360 days. [facility] ondansetron (ZOFRAN-ODT) 4 MG disintegrating tablet 2019-10-10 00:00:00 2019-10-12 00:00:00 No 4mg Take 1 tablet (4 mg total) by mouth every 8 (eight) hours as needed for Nausea for up to 7 days. [facility] acetaminophen-codeine (TYLENOL #3) 300-30 mg per tablet 2019-10-10 00:00:00 2019-10-12 00:00:00 No 1{tbl} Take 1-2 tablets by mouth every 6 (six) hours as needed for Pain for up to 10 days. Max Daily Amount: 8 tablets [facility] ketorolac (TORADOL) 10 mg tablet 2019-10-10 00:00:00 2019-09 00:00:00 No 10mg Take 1 tablet (10 mg total) by mouth 3 (three) times daily as needed for Pain for up to 5 days. [facility] [place] ferrous sulfate (IRON ORAL) 2019-08-10 09:04:11 Yes Take [facility] mouth. [facility] cyanocobalamin, vitamin B-12, (VITAMIN B-12 ORAL) 2019-08-10 09:04:11 Yes Take by mouth. [facility] multivitamin capsule 2019-08-10 09:04:10 Yes 1{capsule} QD Take 1 capsule [facility] daily[facility] [place] semaglutide (OZEMPIC) 0.25 mg or 0.5 mg (2 mg/1.5 mL) subcut aneous pen 2019-08-10 08:54:16 2019-08-10 00:00:00 No type 2 diabetes manuel itus .5mg Q7D Inject 0.5 mg subcutaneously once a week. [facility] nitrofurantoin (MACRODANTIN) 100 MG capsule 2018 08:54:03 2019-08-10 00:00:00 No 100mg Q.5D Take 100 mg by mouth 2 (two) ti mes daily. [facility] insulin glargine (BASAGLAR KWIKPEN U-100 INSULIN) 100 unit/m L (3 mL) In 2019-08-10 08:53:58 2019-08-10 00:00:00 No 20U QD Inject 20 Units subcutaneously nightly . [facility] insulin aspart U-100 (NOVOLOG) 100 unit/mL In 2019-08-10 08:53:47 2019-08-10 00:00:00 No Inject subcutaneously 3 (three) times daily with meals. [facility] dulaglutide (TRULICITY) 1.5 mg/0.5 mL PnIj 08-10 08:53:41 2019-08-10 00:00:00 No 1.5mg Inject 1.5 mg subcutaneously ev von 7 days . [facility] acetaminophen-codeine (TYLENOL #3) 300-30 mg per tablet 2019-08-10 08:53:37 2019-08-10 00:00:00 No 1{tbl} Take 1 tablet by mouth every 4 (four) hours as needed for Pain. [facility] traMADol (ULTRAM) 50 mg tablet 2019-04-08 00:00:00 2019-04-18 23 :59:00 No 50mg Take 1 tablet (50 mg total) by mouth every 6 (six) hours as needed for Pain for up to 10 days. Max Daily Amount: 200 mg [facility] HYDROcodone-acetaminophen (NORCO 10-325) 10-325 mg per table t 2019-04-08 00:00:00 2019-04-18 23:59:00 No 1{tbl} Take 1 tablet by mouth every 6 (six) hours as needed for Pain for up to 10 days. Max Daily Amount: 4 tablets [facility] metFORMIN (GLUCOPHAGE) 1000 MG tablet 2019-04-06 15:13 :44 2019-04-06 00:00:00 No 1000mg Take 1,000 mg b y mouth 2 (two) times daily with breakfast and dinner. [facility] Vital Signs Vital Name Observation Time Observation Value Comments Source Systolic blood pressure 2019-10-12 11:18:00 119 mm[Hg] [facility] Diastolic blood pressure 2019-10-12 11:18:00 64 mm[Hg] [facility] Heart rate 2019-10-12 11:18:00 78 /min [facility] Body temperature 2019-10-12 11:18:00 37.33 Elsie [facility] Respiratory rate 2019-10-12 11:18:00 17 /min [facility] Oxygen saturation in Arterial blood by Pulse oximetry 10-12 11:18:00 98 /min [facility] Body height 2019-10-10 04:33:00 162.6 cm [facility] Body weight Measured 2019-10-10 04:33:00 88.451 kg [facility] BMI 2019-10-10 04:33:00 33.47 kg/m2 [facility] Procedures Procedure Date / Time Performed Performing Clinician [facility] e POCT-GLUCOSE METER 2019-10-12 13:20:00 Carole Patel [facility] POCT-GLUCOSE METER 2019-10-12 12:13:00 Carole Patel [facility] XR ABDOMEN / KUB 1 VIEW 2019-10-12 10:11:00 Carole Patel [facility] POCT-GLUCOSE METER 2019-10-12 07:58:00 Carole Patel [facility] POCT-GLUCOSE METER 2019-10-11 21:41:00 Carole Patel [facility] POCT-GLUCOSE METER 2019-10-11 17:12:00 Carole Patel [facility] POCT-GLUCOSE METER 2019-10-11 12:20:00 Carole Patel [facility] POCT-GLUCOSE METER 2019-10-11 08:16:00 Carole Patel [facility] CT ABDOMEN/PELVIS WITHOUT IV CONTRAST 2019-10-10 06:13:00 [facility]/ MICROSCOPIC 2019-10-10 05:05:00 OfGilberto smith [facility] SCREEN, URINE 2019-10-10 05:05:00 Domenic Maradiaga [facility] BASIC METABOLIC PANEL (7) 2019-10-10 05:04:00 Gilberto Maradiaga [facility] LIPASE 2019-10-10 05:04:00 Domenic Maradiaga [facility] HEPATIC FUNCTION PANEL 2019-10-10 05:04:00 Domenic Maradiaga [facility] CBC W/PLT COUNT & AUTO DIFFERENTIAL 2019-10-10 05:04:00 [facility] REPORT OF PROCEDURE - ENDOSCOPY URL 2019-08-16 09:52:03 Jan Ceron [facility] UPPER ENDOSCOPY,BIOPSY 2019-08-16 09:30:00 Osmany [facility] TISSUE EXAM 2019-08-16 09:26:00 Osmany [facility] POCT , URINE 2019-08-16 08:10:00 Osmany [facility] RHYTHM STRIP - SCAN 2019-04-10 12:10:39 Provider, Default Scanni [facility] TRANSFUSION SERVICE REPORT - SCAN 2019-04-08 18:00:42 Provid er, Default Scanning [facility] POCT-GLUCOSE METER 2019-04-08 13:05:00 Valerie Salazar [facility] POCT-GLUCOSE METER 2019-04-08 07:30:00 Valerie Salazar [facility] BASIC METABOLIC PANEL (7) 2019-04-08 05:11:00 Valerie Salazar [facility] HEPATIC FUNCTION PANEL 2019-04-08 05:11:00 Valerie Salazar [facility] MAGNESIUM 2019-04-08 05:11:00 Valerie Salazar [facility] CBC W/PLT COUNT & AUTO DIFFERENTIAL 2019-04-08 05:11:00 Taylor Salazar [facility] POCT-GLUCOSE METER 2019-04-07 21:12:00 Valerie Salazar Reshad [facility] POCT-GLUCOSE METER 2019-04-07 18:50:00 Valerie Salazar Reshad [facility] POCT-GLUCOSE METER 2019-04-07 16:45:00 Valerie Salazar Reshad [facility] TISSUE EXAM 2019-04-07 15:47:00 [facility] LAPAROSCOPY,CHOLECYSTECTOMY 2019-04-07 14:35:00 Mary Hoffman [facility] POCT-GLUCOSE METER 2019-04-07 13:55:00 Valerie Salazar Reshad [facility] POCT-GLUCOSE METER 2019-04-07 12:16:00 Valerie Salazar Reshad [facility] POCT-GLUCOSE METER 2019-04-07 11:13:00 Valerie Salazard [facility] BASIC METABOLIC PANEL (7) 2019-04-07 03:48:00 Valerie Salazar [facility] HEPATIC FUNCTION PANEL 2019-04-07 03:48:00 Valerie Salazar [facility] MAGNESIUM 2019-04-07 03:48:00 Valerie Salazard [facility] TYPE AND SCREEN, AUTOMATED 2019-04-07 03:48:00 Denisse Renteria [facility] CBC W/PLT COUNT & AUTO DIFFERENTIAL 2019-04-07 03:48:00 Taylor Salazar [facility] POCT-GLUCOSE METER 2019-04-06 23:56:00 Valerie Salazard [facility] SCREEN, URINE 2019-04-06 21:51:00 Denisse Renteria [facility] URINALYSIS W/ REFLEX URINE CULTURE 2019-04-06 21:51:00 Brigitte Salazar trinity Hurtado [facility] US ABDOMEN LIMITED 2019-04-06 21:18:00 Brigitte Salazartrinity Hurtado [facility] POCT-GLUCOSE METER 2019-04-06 18:51:00 Martin Valerie Hurtado [facility] BASIC METABOLIC PANEL (7) 2019-04-06 17:01:00 MartinValerie [facility] HEPATIC FUNCTION PANEL 2019-04-06 17:01:00 MartinValerie [facility] PT/APTT 2019-04-06 17:01:00 MartinValerie [facility] PROTHROMBIN TIME/INR 2019-04-06 17:01:00 MartinValerie Resdave [facility] LIPID PANEL 2019-04-06 17:01:00 MartinValerie [facility] MAGNESIUM 2019-04-06 17:01:00 MartinValerie Resdave [facility] CBC W/PLT COUNT & AUTO DIFFERENTIAL 2019-04-06 17:01:00 MartinTaylor [facility] US Gallbladder 2019-04-03 00:00:00 ORESTES GARCIAS [facility] Plan of Care Planned Activity Planned Date Details Comments Source Future Scheduled Test 2019-04-06 00:00:00 HEMOGLOBIN A1C [co de = HEMOGLOBIN A1C] [facility] Future Scheduled Test 2004 00:00:00 Screening for lion gnant neoplasm of cervix (procedure) [code = 544502657] [facility] Future Scheduled Test 1989 00:00:00 PNEUMOCOCCAL VACCI NE 2-64 YEARS AT RISK (1 of 1 - PPSV23) [code = PNEUMOCOCCAL VACCINE 2-64 YEARS AT RISK (1 of 1 - PPSV23)] [facility] Encounters Start Date/Time End Date/Time Encounter Type Admission Type Attendi ng Clinicians Care Facility Care Department Encounter ID Source 2019-11-14 09:47:15 2019-11-14 10:17:15 Office Visit Yuriy Turner [facility] [id number] 2019-10-25 08:02:43 2019-10-25 09:02:43 Office Visit Adrian Vaughn [facility] [id number] 2019-06-06 14:16:28 2019-06-06 14:46:28 Office Visit Yuriy Turner [facility] [id number] 2019-04-20 16:27:03 2019-04-20 17:59:23 Office Visit Ronald Yusra farmer [facility] [id number] 2019-04-03 04:15:00 2019-04-03 06:35:00 Departed Emergency Room 1 ORESTES GARCIAS [facility] [id number] [facility] Results Test Description Test Time Test Comments Results Result Comments Source POCT-GLUCOSE METER 2019-10-12 15:35:00 Test Item POC-GLUCOSE METER (BEAKER) (test code = 1538) 86 mg/dL 70-110 : TESTED AT [address], [address]: Sound Installation Worker/Creative/Art Director ID = [id number] for CHARLIE MANTILLA POC-Glucose [id number] 13:37:00* Test Item Value Reference Range Interpretation Comments POC-Glucose Meter (test code = 1538) 70 mg/dL 70-110 : TESTED AT [address], [address]: Sound Installation Worker/Creative/Art Director ID = [id number] for CHARLIE MANTILLA Lab Interpretation (test code = 97330-0) Normal [facility] [id number] 13:37:00* Test Item Value Reference Range Interpretation Comments POC-GLUCOSE METER (BEAKER) (test code = 1538) 70 mg/dL 70-110 : TESTED AT [facility] [address] [facility], [address]: Sound Installation Worker/Creative/Art Director ID = [id number] for CHARLIE MANTILLA RAD, ABDOMEN/KUB, 1 VIEW [id number] 10:43:00Reason for exam:->ureteral stone - ? passedFINAL REPORT TECHNIQUE: Supine radiographs of the abdomen dated 10/12/2019 HISTORY: Ureteral stone COMPARISON: CT scan of the abdomen and pelvis dated 10/10/2019 IMPRESSION:No air-filled, dilated loops of bowel to suggest obstruction. No free intraperitoneal air. No abnormal soft tissue mass. 2 mm calcification will be difficult to visualize on plain films. No calcification seen to suggest a renal calculus. No fracture. Signed: Елена Kolb MDReport Verified Date/Time: 10/12/2019 10:43:53 Reading Location: [facility] Reading Room abdomen / KUB 1 [id number] 10:43:00Interface, External Ris In - 10/12/2019 10:46 AM CSTFINAL REPORT TECHNIQUE: Supine radiographs of the abdomen dated 10/12/2019 HISTORY: Ureteral stone COMPARISON: CT scan of the abdomen and pelvis dated 10/10/2019 IMPRE SSION:No air-filled, dilated loops of bowel to suggest obstruction. No free intr aperitoneal air. No abnormal soft tissue mass. 2 mm calcification will be diffic ult to visualize on plain films. No calcification seen to suggest a renal calcul us. No fracture. Signed: Елена Kolb MDReport Verified Date/Time: 2019 10:43:53 Reading Location: [facility] Mammo Reading Room [facility] [id number] 08:09:00* Test Item Value Reference Range Interpretation Comments POC-GLUCOSE METER (BEAKER) (test code = 1538) 64 mg/dL 70-110 L : TESTED AT [address], [address]: Sound Installation Worker/Creative/Art Director ID = [id number] for CHARLIE MANTILLA POCT-GLUCOSE [id number] 21:53:00* Test Item Value Reference Range Interpretation Comments POC-GLUCOSE METER (BEAKER) (test code = 1538) 91 mg/dL 70-110 : TESTED AT [address], [address]: Sound Installation Worker/Creative/Art Director ID = [id number] for SANDRA SNOWDEN POCT-GLUCOSE [id number] 17:27:00* Test Item Value Reference Range Interpretation Comments POC-GLUCOSE METER (BEAKER) (test code = 1538) 87 mg/dL 70-110 : TESTED AT [address], [address]: Sound Installation Worker/Creative/Art Director ID = [id number] for CHARLIE MANTILLA POCT-GLUCOSE [id number] 12:32:00* Test Item Value Reference Range Interpretation Comments POC-GLUCOSE METER (BEAKER) (test code = 1538) 73 mg/dL 70-110 : TESTED AT [address], [address]: Sound Installation Worker/Creative/Art Director ID = [id number] for CHARLIE MANTILLA POCT-GLUCOSE [id number] 08:27:00* Test Item Value Reference Range Interpretation Comments POC-GLUCOSE METER (BEAKER) (test code = 1538) 87 mg/dL 70-110 : TESTED AT [address], [address]: Sound Installation Worker/Creative/Art Director ID = [id number] for CHARLIE MANTILLA Urinalysis w/[id number] 06:32:00* Test Item Value Reference Range Interpretation Comments Color, UA (test code = 5778-6) Yellow Clarity, UA (test code = 5767-9) Hazy Specific [place], UA (test code = 5811-5) 1.018 1.001-1.035 pH, UA (test code = 5803-2) 5.5 5.0-8.0 Protein, UA (test code = 96874-1) 50 mg/dL Negative A Glucose, UA (test code = 365) 100 mg/dL Negative A Ketones, UA (test code = 2514-8) Negative Negative Bilirubin, UA (test code = 33916-6) Negative Negative Blood, UA (test code = 83208-9) Large Negative A Nitrite, UA (test code = 5802-4) Negative Negative Leukocytes, UA (test code = 5799-2) Small Negative A Urobilinogen, UA (test code = 96708-4) 2.0 mg/dL 0.2-1 H RBC, UA (test code = 47737-9) 349 /HPF WBC, UA (test code = 5821-4) 7 /HPF Bacteria, UA (test code = 77846-0) Occasional Mucus (test code = 8247-9) Many Squam Epithel, UA (test code = 46354-6) 8 /HPF Crystals, Urine (test code = 91180-6) Moderate Specimen Source (test code = 2795) RAZIA (test code = RAZIA) Sound Installation Worker ID - [auto]Sound Installation Worker ID - tech Lab Interpretation (test code = 78009-3) [facility]/ [id number] 06:32:00* Test Item Value Reference Range Interpretation Comments COLOR (BEAKER) (test code = 470) Yellow CLARITY (BEAKER) (test code = 469) Hazy SPECIFIC GRAVITY UA (BEAKER) (test code = 468) 1.018 1.001-1 .035 PH UA (BEAKER) (test code = 467) 5.5 5.0-8.0 PROTEIN UA (BEAKER) (test code = 464) 50 mg/dL Negative A GLUCOSE UA (BEAKER) (test code = 365) 100 mg/dL Negative A KETONES UA (BEAKER) (test code = 371) Negative Negative BILIRUBIN UA (BEAKER) (test code = 462) Negative Negative BLOOD UA (BEAKER) (test code = 461) Large Negative A NITRITE UA (BEAKER) (test code = 465) Negative Negative LEUKOCYTE ESTERASE UA (BEAKER) (test code = 466) Small Negat brooke A UROBILINOGEN UA (BEAKER) (test code = 463) 2.0 mg/dL 0.2-1.0 H RBC UA (BEAKER) (test code = 519) 349 /HPF WBC UA (BEAKER) (test code = 520) 7 /HPF BACTERIA (BEAKER) (test code = 517) Occasional MUCUS (BEAKER) (test code = 1574) Many SQUAMOUS EPITHELIAL (BEAKER) (test code = 516) 8 /HPF CRYSTALS, URINE (BEAKER) (test code = 1521) Moderate SOURCE(BEAKER) (test code = 2795) Sound Installation Worker ID - [auto]Sound Installation Worker ID - Dennys [id number] 06:20:00Reason for exam:->abdominal painWhat is the patient's sedation requirement?->No SedationIs the patient ?->UnknownFINAL REPORT CT, ABDOMEN \\T\\ PELVIS, WITHOUT IV CONTRAST CLINICAL HISTORY: Flank pain, kidney stone suspectedabdominal pain Technique: Multiple axial images of the abdomen and pelvis were performed without contrast. Coronal and sagittal reformats obtained. Oral contrast was not administered. This exam was performed according to our departmental dose-optimization program, which includes automated exposure control, adjustment of the mA and/or kV according to patient size and/or use of the iterative reconstruction technique. COMPARISON: None. FINDINGS:LOWER CHEST: Pain opacities suggestive of passive atelectasis. LIVER: No acute findings.BILIARY SYSTEM: No abnormal ductal dilatation. Status post cholecystectomy.PANCREAS: No acute findings. SPLEEN: No acute findings.ADRENAL GLANDS: Unremarkable.KIDNEYS URETERS: Mild left hydronephrosis with left pro ximal ureter 2 mm calculus. No right hydronephrosis. GASTROINTESTINAL/MESENTERY: No bowel obstruction or abnormal wall thickening. Normal appendix. Gastroplasty changes. URINARY BLADDER: No acute findings.REPRODUCTIVE ORGANS: No acute findi ngs. PERITONEUM/RETROPERITONEUM: No free air or free fluid VESSELS: No acute fin dings.SOFT TISSUES: No acute findings.BONES: No suspicious osseous lesion. L5-S1 degenerative disc disease with marginal osteophyte, severe left greater than ri ght neural foraminal stenosis and mild to moderate central spinal canal stenosis . Other: None IMPRESSION:Mild left hydronephrosis due to 2 mm calculus within t he proximal left ureter. Signed: Zak Lindquist MDReport Verified Date/Time: 0 10/10/2019 06:20:05 Electronically signed by: ZAK LINDQUIST MD on 06:[address] abdomen/pelvis without iv [id number] 06:20:00 Interface, External Ris In - 10/10/2019 6:23 AM CSTFINAL REPORT PATIENT ID: [id number], ABDOMEN \\T\\ PELVIS, WITHOUT IV CONTRAST CLINICAL HISTORY: Flank pain , kidney stone suspectedabdominal pain Technique: Multiple axial images of the a bdomen and pelvis were performed without contrast. Coronal and sagittal reformat s obtained. Oral contrast was not administered. This exam was performed accordin g to our departmental dose-optimization program, which includes automated exposu re control, adjustment of the mA and/or kV according to patient size and/or use of the iterative reconstruction technique. COMPARISON: None. FINDINGS:LOWER CHES T: Pain opacities suggestive of passive atelectasis. LIVER: No acute findings.BI LIARY SYSTEM: No abnormal ductal dilatation. Status post cholecystectomy.PANCREA S: No acute findings. SPLEEN: No acute findings.ADRENAL GLANDS: Unremarkable.KID NEYS URETERS: Mild left hydronephrosis with left proximal ureter 2 mm calculus. No right hydronephrosis. GASTROINTESTINAL/MESENTERY: No bowel obstruction or abn ormal wall thickening. Normal appendix. Gastroplasty changes. URINARY BLADDER: N o acute findings.REPRODUCTIVE ORGANS: No acute findings. PERITONEUM/RETROPERITON EUM: No free air or free fluid VESSELS: No acute findings.SOFT TISSUES: No acute findings.BONES: No suspicious osseous lesion. L5-S1 degenerative disc disease w ith marginal osteophyte, severe left greater than right neural foraminal stenosi s and mild to moderate central spinal canal stenosis. Other: None IMPRESSION:Mi ld left hydronephrosis due to 2 mm calculus within the proximal left ureter. Sig mao: Zak Lindquist MDReport Verified Date/Time: 10/10/2019 06:20:05 Elect ronically signed by: ZAK LINDQUIST MD on 10/10/2019 06:20 AM [facility], [id number] 05:44:00* Test Item Value Reference Range Interpretation Comments Preg Test, Ur (test code = 2112-1) Negative [facility] CenterPREGNANCY SCREEN, [id number] 05:44:00* Test Item Value Reference Range Interpretation Comments TEST URINE (BEAKER) (test code = 583) Negative Basic Metabolic [id number] 05:38:00* Test Item Value Reference Range Interpretation Comments Sodium (test code = 2951-2) 142 meq/L 136-145 Potassium (test code = 2823-3) 3.9 meq/L 3.5-5.1 Chloride (test code = 2075-0) 110 meq/L 98-107 H CO2 (test code = 2027-9) 22 meq/L 22-29 BUN (test code = 3094-0) 8 mg/dL 7-21 Creatinine (test code = 2160-0) 0.71 mg/dL 0.57-1.25 Glucose (test code = 2345-7) 179 mg/dL 70-105 H Calcium (test code = 50716-0) 9.2 mg/dL 8.4-10.2 EGFR (test code = 59504-2) 94 mL/min/1.73 sq m ESTIMATED GFR IS NOT ACCURATE CREATININE CLEARANCE IN PREDICTING GLOMERULAR FILTRATION RATE. ESTIMATED GFR IS NOT APPLICABLE FOR DIALYSIS PATIENTS. RAZIA (test code = RAZIA) Sound Installation Worker ID - [place] Lab Interpretation (test code = 77051-1) Abnormal [facility] CenterHepatic function [id number] 05:38:00* Test Item Value Reference Range Interpretation Comments Protein, Total (test code = 2885-2) 7.2 6.0- 8.3 gm/dL Albumin (test code = 40919-3) 4.4 g/dL 3.5-5 Total Bilirubin (test code = 1974-) 0.7 mg/dL 0.2-1.2 Bilirubin, Direct (test code = 1967-7) 0.4 mg/dL 0.1-0.5 Alkaline Phosphatase (test code = 6768-6) 61 U/L 40-150 AST (test code = 1920-8) 15 U/L 5-34 ALT (test code = 1742-6) 20 U/L 6-55 RAZIA (test code = RAZIA) Sound Installation Worker ID - [place] Lab Interpretation (test code = 05927-0) Normal [facility] CenterLipase2020-01-[facility] 05:38:00* Test Item Value Reference Range Interpretation Comments Lipase (test code = 3040-3) 56 U/L 8-78 RAZIA (test code = RAZIA) Sound Installation Worker ID - [place] Lab Interpretation (test code = 55709-7) Normal [facility] CenterLIPASE2020-01-21 05:38:00* Test Item Value Reference Range Interpretation Comments LIPASE (BEAKER) (test code = 749) 56 U/L 8-78 Sound Installation Worker ID - LABASIC METABOLIC [id number] 05:38:00* Test Item Value Reference Range Interpretation Comments SODIUM (BEAKER) (test code = 381) 142 meq/L 136-145 POTASSIUM (BEAKER) (test code = 379) 3.9 meq/L 3.5-5.1 CHLORIDE (BEAKER) (test code = 382) 110 meq/L 98-107 H CO2 (BEAKER) (test code = 355) 22 meq/L 22-29 BLOOD UREA NITROGEN (BEAKER) (test code = 354) 8 mg/dL 7-21 CREATININE (BEAKER) (test code = 358) 0.71 mg/dL 0.57-1.25 GLUCOSE RANDOM (BEAKER) (test code = 652) 179 mg/dL 70-105 H CALCIUM (BEAKER) (test code = 697) 9.2 mg/dL 8.4-10.2 EGFR (BEAKER) (test code = 1092) 94 mL/min/1.73 sq m ESTIMATED GFR IS NOT ACCURATE CREATININE CLEARANCE IN PREDICTING GLOMERULAR FILTRATION RATE. ESTIMATED GFR IS NOT APPLICABLE FOR DIALYSIS PATIENTS. Sound Installation Worker ID - LAHEPATIC FUNCTION [id number] 05:38:00* Test Item Value Reference Range Interpretation Comments TOTAL PROTEIN (BEAKER) (test code = 770) 7.2 gm/dL 6.0-8.3 ALBUMIN (BEAKER) (test code = 1145) 4.4 g/dL 3.5-5.0 BILIRUBIN TOTAL (BEAKER) (test code = 377) 0.7 mg/dL 0.2-1.2 BILIRUBIN DIRECT (BEAKER) (test code = 706) 0.4 mg/dL 0.1-0.5 ALKALINE PHOSPHATASE (BEAKER) (test code = 346) 61 U/L 40-150 AST (SGOT) (BEAKER) (test code = 353) 15 U/L 5-34 ALT (SGPT) (BEAKER) (test code = 347) 20 U/L 6-55 Sound Installation Worker ID - LACBC with platelet count + automated [id number] 05:16:00* Test Item Value Reference Range Interpretation Comments WBC (test code = 6690-2) 6.9 3.5- 10.5 K/L RBC (test code = 789-8) 4.34 3.93- 5.22 M/L MCHC (test code = 786-4) 33.5 32.2- 35.5 GM/DL Hematocrit (test code = 4544-3) 40.9 % 34.1-44.9 MCV (test code = 787-2) 94.2 fL 79.4-94.8 MCH (test code = 785-6) 31.6 pg 25.6-32.2 RDW (test code = 788-0) 12.9 % 11.7-14.4 Platelets (test code = 777-3) 164 150- 450 K/CU MM MPV (test code = 93751-9) 11.3 fL 9.4-12.3 nRBC (test code = 413) 0 0- 0 /100 WBC % Neutros (test code = 429) 76 % % Lymphs (test code = 430) 19 % % Monos (test code = 431) 4 % % Eos (test code = 432) 0 % % Baso (test code = 437) 0 % # Neutros (test code = 670) 5.19 1.56- 6.13 K/L # Lymphs (test code = 414) 1.33 1.18- 3.74 K/L # Monos (test code = 415) 0.29 0.24- 0.36 K/L # Eos (test code = 416) 0.02 0.04- 0.36 K/L L # Baso (test code = 417) 0.02 0.01- 0.08 K/L Immature Granulocytes-Relative (test code = 2801) 0 % 0-1 Lab Interpretation (test code = 02996-3) [facility] & AUTO [id number] 05:16:00* Test Item Value Reference Range Interpretation Comments WHITE BLOOD CELL COUNT (BEAKER) (test code = 775) 6.9 K/ L 3.5- 10.5 RED BLOOD CELL COUNT (BEAKER) (test code = 761) 4.34 M/ L 3.93-5 .22 HEMOGLOBIN (BEAKER) (test code = 410) 13.7 GM/DL 11.2-15.7 HEMATOCRIT (BEAKER) (test code = 411) 40.9 % 34.1-44.9 MEAN CORPUSCULAR VOLUME (BEAKER) (test code = 753) 94.2 fL 79. 4-94.8 MEAN CORPUSCULAR HEMOGLOBIN (BEAKER) (test code = 751) 31.6 pg 25.6-32.2 MEAN CORPUSCULAR HEMOGLOBIN CONC (BEAKER) (test code = 752) 33.5 GM/DL 32.2-35.5 RED CELL DISTRIBUTION WIDTH (BEAKER) (test code = 412) 12.9 % 11.7-14.4 PLATELET COUNT (BEAKER) (test code = 756) 164 K/CU MM 150-450 MEAN PLATELET VOLUME (BEAKER) (test code = 754) 11.3 fL 9.4-12 .3 NUCLEATED RED BLOOD CELLS (BEAKER) (test code = 413) 0 /100 WBC 0 -0 NEUTROPHILS RELATIVE PERCENT (BEAKER) (test code = 429) 76 % LYMPHOCYTES RELATIVE PERCENT (BEAKER) (test code = 430) 19 % MONOCYTES RELATIVE PERCENT (BEAKER) (test code = 431) 4 % EOSINOPHILS RELATIVE PERCENT (BEAKER) (test code = 432) 0 % BASOPHILS RELATIVE PERCENT (BEAKER) (test code = 437) 0 % NEUTROPHILS ABSOLUTE COUNT (BEAKER) (test code = 670) 5.19 K/ L 1.56-6.13 LYMPHOCYTES ABSOLUTE COUNT (BEAKER) (test code = 414) 1.33 K/ L 1.18-3.74 MONOCYTES ABSOLUTE COUNT (BEAKER) (test code = 415) 0.29 K/ L 0. 24-0.36 EOSINOPHILS ABSOLUTE COUNT (BEAKER) (test code = 416) 0.02 K/ L 0.04-0.36 L BASOPHILS ABSOLUTE COUNT (BEAKER) (test code = 417) 0.02 K/ L 0. 01-0.08 IMMATURE GRANULOCYTES-RELATIVE PERCENT (BEAKER) (test code = 2801) 0 % 0-1 Tissue [id number] 11:09:00* Test Item Value Reference Range Interpretation Comments Case Report (test code = 104) Surgical Pathology Repor t Case: [id number] Authorizing Provider: Luis Alfredo Ceron Collected: 08/16/2019 0926 Ordering Location: [facility] Received: 08/16/2019 1023 SERVICES Pathologist: Nayeli Mortensen MD Specimens: A) - Stomach, Antrum, gastric antrum biopsy B) - Biopsy, Gastric, gastric incisura biopsy C) - Biopsy, Gastric, gastric body biopsy D) - Biopsy, Gastric, gastric fundus biopsy DIAGNOSIS (test code = 3220) [id number]aeBQeQTzfkqRnAKrrz1BsZ8ZmGkSbUZlxxaIrXHCo EqkayflzQAUyGGY9rmMlVTFtUZzzUZYwWVzlBy1teXYtlHfiGbLmGCXwi4gddnCGnekfmLb7lUmiG04u g0U1XkzpH5cwVFVzTJFdE4GrCW6hYKHuMms2VJW7ZL J0BLAlRPGgZ0TvWH2xAQFotZZmWTm2v5panGvxKCPeBKM1t0riSWftoiJgPU2fvb6nrDs8h8nftfSrLF QnNLHaiLWVPYCwB9ZuoDjfYe3pvGn9jYfcRvsxDUK4Jjn5LE2oar54sxe4vGagESSqpklmPrO3MKmtHC OhcrgwCGa3SFdrUKFpnVenJQpjFEDqcepeIRnxUONd lLffAXmgPPZkDwcsVMuwCXGhERZ7WOthi322IZF8QIknu7xdn4hlbAXgMgw1XHQxHwJcPpjwXAhwz7Vy z1hkWFXqkz2dPSU5oJFccErqc4S6fMQeMITswFZklzWkCMSzQrQ8SRgtVO7rtr91FMSzAXW4ma2srLYu yIcfnrKqvZRrEZtkL7DhKZBqr813KQQhZ4LpEHMmk7 Y2qlFsKzIqNOMjsXV5avP1IHHeOGc4xMNooyL0bhJrwDFbY5trdD32LpEgfSGhD9TwoX23XhVdgXUqF4 TygJ35UwLxcOJbG5ZfoQ11YzGpkYDqCVEfaVHlGd3vkBVyjTFcy8CgzJHxTTovO60kz490OYIshmJaE7 kxbTErthwqeZWgkuifUIhsuiX2YSKcWTYsPEnnNNOl VOHsHnStnWTgLgFeNtQpyQudfKkfYGgnYsHeOVJcHPyoN1ibBtSeMzRvCJYAJgVJXP1BWCBFBHVIJqAC SH6uVTCDG7XIWQTBRwklXZStLKIfPPYZDC5WF4ZUP5XWZJBEGREJOSoXQ2PRR8RZVLzVJMhjIIUmpXRi MQHrXUKHX76PH2veMVdLP2yIVNYHRZUBZG1XT4lOEn azvJIrNJDrJNRZHc1MQ63nAVKWPFESSdbAMgwIB3WmLNHXUAPWSFTFWWjIMFIgqborJUCnUs1aS6VHZM VCICmdYa6DOIbfJklBUDYNHRP6AGHslzIzRW1bB9zXC38BHrQYDrQGITfJFDGUBKNGQtaUBKIllJWrRB IrlwIBYrIYOE8XTRFUUIFUQV1ZLFJjLJZOP3MVNXYL MbmeCPHmRUSqVVYPSOWQZdCBH4JpoDAqrGkzsrErDWbzk0ErHZuiZHAyZT8eqNrsVYOsSU8tOOHfY0yx aS8uoke2VxEiCYZbHlC9JILyqeW0Fbr3VQHwVGoxt0xfr2JcZPZyWEf0ySneIaKpFODqr8jvywThUtPr SNReCDFfXXTarKNxJ341b1uhk0snhbShvCD5RKTtZC Y4IRzddrBcepF2ZJfziFNcLbO4OVdgopUjTZhdrgXvzyDfEzg0VLAyB136TUZ2zIzwz8zjTRV8HXKmYX VxAzJeYc5ctABrE638KECyEUEAUYMtpHt7XVYiwzOcooLmySHSa388D139u8xhPVPvnsHazGbLyscjw1 bcV990QVNekCZdxsKtOeJdZBZplNPfaTB5EPScYW3v qkkeRUihJZkmDDQpoiO7JALawSYtV0CtMMDdBO2grqiaYEQ1SEvrJOAyYDW4UdNtXYGfw0Qblnt7XkWi fa5rol80NGP0v6XwxOkqBEW3AWR3EhElHh9uhCPsYBTnVQ4wZaNweQRfONMbqa42fKdfLWneAQI5LOCc tfEfp9Mfb9yuInFfbbJtA9zkZ0BfLWWgGPPqDWUuGh KoifNef1Kdr4FpgFGkpPk3e8mpGFNpILUuaUmcg9zeTJX2WXZszAYhI9raeZ4wPHUcGC3fujfog0bxXH rlHFwhYXPnzCY8rgK5HNJfoJQjQ4QodZ9jJGDpQKgsUJEvsyi2RaIkXw7hrCPdzZxoZFmaFtxmFOwbWC BnbmNvbnRccGduZGVjXHBsYWluXHBsYWluXGYwXGZz XdTijRnncHCcKsDoDkUkaGqjmPmzNWdtQbJoDJLlHSjmX9idUtHdBgEfQcb8IFGdbDXqUDBzNzt1YVDb oIGhXTBPcZitgK9mKQMbiFstyG1sfAT3RYIuowIcjHPPdK3nLHNUrW2yWgF4TnKpYcU3EIQfHJtcgVVi fX0= CPT Code(s) (test code = 3357) x1iefHYlFBGnxVYgUtJgFKKhZVYbb3oiFWMdxIRwFgJjKeSuYvGfCwrnaKDkBUEdQgGfm3fwb270uJJg p2dtCQSvCdM1iVSsZWRdiRVnR910DSUhIYuie7jey5JsXEHclVEoy3Z7UORQrrsjrCf0uRgnK14ms9L9 OmwlV5qfRVFhITXrV4SpOQ5hNTNvSpp7GOO3KAQ0DR XjALIkX3BvBK1lBFIiqSBtGTd9a6dmiNfrZQChYCQ9o6rtINxdxzTsOO0ush4buYn9c5unhlZuEGXiZL WdvGMOLYJoE7XroSnmCj8wfQj7jOwyFdcoGIG0Xtj9XJ8dtk64ybb6lRdoBGPvufuuFgD9XLpwYEIcey ksQTc1FHxyCDUbgKrpWMhcZCOmzvigSFruDNJvxKmo BFpiFNVbGrlzGGyrXNJnFPH6LVwds465MVQ1DBiab0nyc1zulNEjYbo9FVAfLtFzDhbqMKoko8Odg5se TBWscl9qVOF7rYGozEnpc6H3oRWnBDBybTUltqRfZIZnKbV0ROmzES8nhu56FYXaMXP6ls9wqENebBpn akPmjJKnBColL2VtUZNwq039JXRbN4UdLDHbo3K7rf NvNbStJEPwiRU5xzK4AAWuQHz2bHLcmsO3wjTbkDYcG6twpR73QdDytPRqI4RbxD16FbRfcXEsB3SgpE 59MkVpnFUsC1AdkI79YqIsrMMcNCNoqTFyGf2ujUBbeXYva3AnbZWlJYgnH27zg151MKCdoxEzG1mkiL AjdnicxXVvigceVJqasbS4SJYhOBTmLHgmHQYoMOSb UvNztFJpIcGlAmQsqQjrzFgyVZktIwIpVSYcEQvuX9rbWeNtFlMlGWELEj4ms8mdUNNqSKycOOQlqHSr QFj8JtPnHICwff3= CLINICAL HISTORY (test code = 3356) l5umlOXiHKJnlXJdKyIcOXMyPVVzs7efSJIvnHLaMhAxVbXsJmLyFhbgiLDvOHTtBxEmh1mnp712jHDf f1yiRPDsYuC2zMHvCIDstCFuQ900u9kgt2upxyGwwDT7MYFtQXC0ZZrbpoZzqyT6JOzunWEtKzT7HLuf gtUaZMfovbXepuIgHzk4ZLXnF346SPK5pKxsy6wxEP C5IJXvGVYeOyEiOx2qeUCtU327HOUuNALMCTKleBg0NRRusjIuutKvsYKQx413Q970d1ooGDSecsWpeE kWehwzp5fgC488FQNzwQXpxjLcHgIyDYPezNWjsDZ4XZUgPM6ypiauVnBfQE9otcppCtRlPC6xpic1Dr GoBE9ajkkvGqKfBDltIBYpwqhnZQDki6PczbnwRR1x X3Qzg0B7cU8oyYGySYHvmBShOlBdJRFtxo2wrQGwIOxrh0ThUJE1wvN6kLBymZZoNFGpBU23Ymwju6Gk IzemJCV0FDLevxDud1Jgs2gfIbZghpXdN5qjD8SnTFRhMIZeDZEiRhGvqpXam4Hbd3YjoQRogZa5i7kq JYUcOKUdnIjuu6qdNYE7MRUcN9R5oYKux0vuCOkiSH AmgEB0gyqfWCxyYAPpvdS5ncacIIthORAdyQX6digkOQibCPDzNsA2pivhJJcyPSInMAF0BOmcy805KA E3QMtjGsdeKKavVMSquqKcxbIyqJdfAALkNXZkIJhzKPFgWFawJMFqMHQzKhJezMgqfRpgvC4mRsAhZe JgIGagFV2zZFSqD4xnrRSxKJTpYQWxZ8dxGdLvrF2o sSuiDYtpyaAgMUycd1Ogn7Nyd3AhUAwvZAdkcaLzfWQ9VWPbo7Pso4SgJKTit0YbJXredVwsIOJfAREs ctXgKF8zaYVyjXFduNKdGJAdRIL0LAD8paYih3E2YOuor1PxaHZxi5DyP0RkgB1wjINynE== GROSS DESCRIPTION (test code = 3366) [file] xpbiBsYWJlbGVkIHdpdGggdGhlIHBhdGllbnQncyBu YK4nNPAcX0Fze2Bfu19psmBeSyGvBRRhMHTyC1LqiTNvDtGsvZ2ml2bvMUNxBTQ2vFLfVFM2GD6mnAst dgP3iVAyrPJcWbAdB56jmqAdDM4hFZM8ouabZkE5dUW2wwWaRtEyI76maS7iN8AxRHIar2RbBHbkGU5n aQ2wPDU6sZgvfBCevyNvGxdnmVQrSJGzOA0xFYD6Jx 1ahQHhEGTrboW1g8LzKVxgWENyPshsLGWtyGCdGXKaUYRhD6DjjsVfTJifFHGitt1zqJhpTRusXqGuEY Tre3m6sPW0yXEijOW8sIFbtDwaEJ0muHAmFUJyU1Emb2miwaLizI7cVBYbQQ2wJOKjQMC5sxpsIJHfYE yhBEBaSZTdnUu7zOCgAFX9XB6gcYgnhpC1jCPoqGAh CsCyS09occAfNO7gBNB9lzuyNhM3nQS4tzJhDqWlZ38krX8xB7EeLQCpb2TjRCavNJ7owP7iGQX3pFvc oJLtgkZjIgjtqYRuSSZlQP2fAEK1Yu4tgROxTBSwljW9s0ViIIdsBWEfIqghAVKncCOzMUMtTAByY2Qk zmQqKHeyGBDlfm5qoDuuCAfbGtEoGBFom2i9zRG2rI NarZI0hIItmCmhYV1biPHaEIVuA2Pzm4osdwMsrV4bKZNrUA7pOJRwIZZ0yxzoEZN3khS4xnLvMKDaAT YpowPkEKBqbn0wpN1uZRZwo3V3CYInowMvvYKquVHzxFHsc8OafQ3dHRHfMCBwLXKoGeLwwYPcazYjwj AjbVJeqIIdgI5atvNwp93pOUfqoMOuPFAsCSRteVu2 KHIzGNXdjhAxb7FvyRc5lRZySKbwKJMbrB0iwA0bFBCdKGXEN2K5ILtaXUX9 MICROSCOPIC DESCRIPTION (test code = 3371) l1iztRTiXNWnaTCmRuRcVZEkAPIgp5zbIZEqvNMmSjHcIzUgZgNwEriyhHJuXQZzWsIls7pih856tPOh e4shXJYrDvN1qLIhPGOsxUZwC434c2pbg4nxldXcuCD3WCJnXNW2SKdedwBknsY1HLpzkYHaVuY8RXmg dpLjARqlwvOznwVxVnn3SIEwC862BKL9pDakm3uqVR V9NPGyTVBiGnIgDc8fzJGiM780SNMsSCZYMTFtzEa4IYGldpSycmXwrGZUj597N355y4wcPUPszvHppW tAsiqmj7zjU309SJVoxLQzphPaRoGnFTEslLAakJV9ZJPxCE0xthbmMxKjGW1yzkivKqByYM5cyrk1Yc XsVD5lexwqVhRmKMjpFQAtpxurFUFps9XabqnhXK4g A9Vhb0Y2cY3sdVYnHKDyeBTkElSdLPXrch9ydDVaECzgy8GoNZS4zkU3bBEziCOlLBAqQK46Ripzg0Wf CgmuZAL9ZBUfueRrs6Zxv8weNiModoAcV2gnF9JbAWEyZOFgCYTsObCztlAsz9Eyc1SipYImzPj3l1xj EMFoEEKlyZnfw6usJWL8CBWrC1J6sBCka7ffEZyiMX UioLN5dwemUTyjNEFxgnC2dregSQboMLBpyAR1ygqeDCklFTRvKuZ8nmhxZIxoJRYjSJF1JSulv774IT O0LOdiXknfRHokONYjntDabmPvhJshFRFkXFMdITsoZPTmPYgyPREkOPRfSiBzgLmvrPkmkN6zOfXwTn GnOGzmOT0uSVJfS3zfwFUyUPFwKHRfE5viJpThiM3h xNfqZYifhoBkYXHrBE3uPv6rIVOdoACwTsLltUOuELE8mK7ezOLaiqUcm8DhneWevdZGLmIov2BbJ2Xw pPuqddBBjONrzzngc1DgvB2iFmPUvfNttzZob3RmfoKmED2anQXgiNUsmNSmBIN7d7RnMYYiVTPxgkTo SHmmV28slbE3KQqlZDJtMN3nISQuug6= SPECIAL STUDIES (test code = 3376) i8enmIYiMJZqrTRoLdIiOESoCWUoe1ncXUYetFYvZuKlIcXhSnQlBwpuxKUqJWDmAbGno8sfi700uSYm t3dsWUJxCqH5zLEgOMWlaYIjE364SZCoPWgvq0hne3PiGTHwmXJvs4S7MFVSKLbfTgRiV354RCCiYCoq v6lmf0KjOULfpKGtr0X3RWZLrcbhhSm1bEecC46gk3 Z1ZnuoM5kcEAFyFHHkF7GsZU3zFMMuDoh5VTY2SUT3VGAhOYObO7AvBK8bOAAkwQVlBDg6n5jumCniPS XgAFK2q2ldHIaeaaQ3OP9xnl7rtWd3t0ieteQfXRCaNWHuuRDTCWHoU2LgmRsfWu3pkGd3b1sqZopgxw S0tMDoOrAyPqAgWNswbXJewlddGGKvWUO3aNURYEq5 D013b8osJZFdjtVwkTzAhktnh9uwH349QDQuxUPtvgNzIkClEMGikSYjwLO7ERDoKR1rhjjoFfZbDU0d ecidFvSfDH7baqo1PoOmUD6yhcocJhTfTEdtRWGeccmuEIYbq9WpgtvcRH3aE3Pvg4K5xO6dzNAgGIZp uFLhHvZdJBUrby3bxOUyKOviEOS8VBGexaSxs8Rzy7 elOnFdvqSvB9seU4IvLTZiCTYsEPHiCqDeesFne5Eea6DxqABfrWx5z6tuZFMfBMBjmWjgm2bmCYL1QM LjB5V3cALeh8lnGIejHLSntRJ5ngmxQTzaXPGdhcI8lhiwHGvqRFHmmYA8zuseZFfdDZMkKzF3ofyfOL fzMOPfVLT2RVkyy177BAP4BFouSgyxQEvqXPRqiyFr stZovEvlGYJyVJVgBWbtPXVeVXdxXSFmXOVqOcYqrTmiqIhdxX2iFsUqTaTeFsucYI4rOMYaS3mtwWBp XWVqAEQwK8ddGiXgfR8hzFcfQRnvRsRsEqJyEhDUzDGwnF90VKToibQ0VDSov11ow3TpqYtejvFjMKDc USacW3v0XIBxMHYdQNY0a2Ltz8UbkW4ftB3bgNdcuL 3qlDPciZT9jivog4Iob9FjE3cqwVGgzBFyriHyMKZtGRroQZVhWRDwXzCfiBVaVpOiWfRcvRqpbDimQK wtBqXuOWRsJGwnE0qqWwBbM7GvDVEqNoThpNQwQ7vxtJRoFIMqempxaBRvkuikAAzilsIvFNvquhzgHD HsNMqhC6nvZeHiTIWpwEgeZFlgn7IcBSJuEYSwFntj efPhBCFzliCxn0fnG2zmNTWdSIY1BC6ntaGgQuXfGT1fhG90s8Svf12ay62ubZ4wsOPcdcLdW05gmOEu nSKrs2HtWJBafsLzuBJ6AZFfHNqxefchs9j3wHJ7nLFrkIKgyKC5eODktPVpNFAUkPEeRTLgv396sv7x EXLkcVZqugYssO5qVBadbguozLMuOS1zRNRdLPYtQE JgZN93svTnEM9kyGQrz4ckmkHgrABqw9LihYB3GKUzkWSttrgdNc9qPE79QAEbSYgvmK2aaHXnxvWhGW 4aCL0hA5B7jJFhOUPjzkIwj7qhGVwzNK6xOPXviFqlQinqKTYwKNYnxuJigLG1GOWiLPJiCHljDNCqEU ZzMjJcbGFuZzEwMzNcaGljaFxmMlxkYmNoXGYyXGxv E3rnTaOcBlUrPkrvAXMxfZQcKFvqlWGzktpcLSbvecY0NBIzMXknCXMnKNVpUbIamAHmtM== [facility] [id number] 11:09:00Surgical Pathology Report Case: [id number] Authorizing Provider: Luis Alfredo Ceron Collected: 08/16/2019 0926 Ordering Location: [facility] Received: 08/16/2019 1023 SERVICES Pathologist: Nayeli Mortensen MD Specimens: A) - Stomach, Antrum, gastric antrum biopsy B) - Biopsy, Gastric, gastric incisura biopsy C) - Biopsy, Gastric, gastric body biopsy D) - Biopsy, Gastric, gastric fundus biopsy A. STOMACH, ANTRUM, BIOPSIES: - CHEMICAL/REACTIVE GASTROPATHY B. STOMACH, INC ISURA, BIOPSIES: - PROTON PUMP INHIBITOR EFFECT, MILDC. STOMACH, BODY, BIOPSIES : - CHRONIC INACTIVE GASTRITISD. STOMACH, FUNDUS, BIOPSIES: - PPI EFFECT Signing Pathologist Direct Phone Line: [phone] signed by Nayeli Collins MD on 08/21/2019 at 11:09 [facility][id number] x4, [id number] reflux disease, esophagitis presence not specified, status post gastric surgery .A. Received in formalin labeled with the patient's name, accession number and " stomach antrum" are three null-pink soft tissue fragments that measure up to 0.2 cm in greatest dimension, which are filtered and submitted in toto in A1.B. Rece ived in formalin labeled with the patient's name, accession number and "gastric biopsy" are three null-pink tissue fragments measuring up to 0.3 cm in greatest d imension, which are filtered and submitted in toto in B1.C. Received in formalin labeled with the patient's name, accession number and "gastric body" are multip le null-pink tissue fragments measuring up to 0.3 cm in greatest dimension, which are filtered and submitted in toto in C1.D. Received in formalin labeled with t he patient's name, accession number and "gastric fundus" are three null-pink tiss ue fragments measuring up to 0.3 cm in greatest dimension, which are filtered an d submitted in toto in D1. PA/ew A-D. No Helicobacter pylori are seen on H&E or Warthin Starry stains. No intestinal metaplasia, dysplasia or malignancy is seen.The interpretation of this case included the use of immunohistochemistry or special stains.Control Slides Examined: In-house known positive controls were evaluated along with the test tissue. These control slides run alongside of the patients sample show appropriate staining. Internal positive and negative cont rols when available are evaluated.POCT , [id number] 08:10:00* Test Item Value Reference Range Interpretation Comments Test Urine, POC (test code = 8363558) Negative Control line present?, POC (test code = 5652521) Yes Background clear?, POC (test code = 6451984) Yes UPT Cassette Lot #, POC (test code = 9029344) [id number] UPT Cassette Expiration Date, POC (test code = 4465015) 11-17-20 [facility] [id number] 14:54:00Surgical Pathology Report Case: [id number] Authorizing Provider: Mary Hoffman MD Collected: 04/07/2019 1547 Ordering Location: [facility] Received: 04/07/2019 1618 SERVICES Pathologist: Shawn Alanis MD Specimen: Gallbladder A. GALLBLADDER, CHOLECYSTECTOMY- CHRONIC CHOLECYSTITIS - ONE BENIGN CYSTIC DUCT LYMPH NODE (0/1) Signing Pathologist Direct Phone Line: [phone] signed by Shawn Alanis MD on 04/11/2019 at 2:54 PM [id number] and postop diagnosis: acute cholecystitis Gallbladder Received fresh labeled with the patient's name, accession number and "gallbladder" is a 9 x 2.5 x 1.5 cm intact gallbladder with a clipped cystic duct. The serosa is green and smooth. There is a 0.7 x 0.4 x 0.3 cm null cystic duct lymph node. The specimen is opened to reveal null grumous material. The mucosa is green and tr abeculated. No choleliths are identified in the specimen or specimen container. The wall thickness is 0.1 cm. Word Processing Supervisor sections are submitted. Section co de: A1, cystic duct margin en face and one intact lymph node; A2, gallbladder wa ll. CG/pl A microscopic view of the same gallbladder shows fibrous tissue and flecks of calcium. Rokitansky-Aschoff sinuses, which are herniations of the robinson ing mucosa into the muscle layers, are commonPOCT-GLUCOSE [id number] 13:27:00* Test Item Value Reference Range Interpretation Comments POC-GLUCOSE METER (BEAKER) (test code = 1538) 92 mg/dL 70-110 TESTED AT [facility] [address] [facility] [address] POCT-GLUCOSE [id number] 07:40:00* Test Item Value Reference Range Interpretation Comments POC-GLUCOSE METER (BEAKER) (test code = 1538) 81 mg/dL 70-110 TESTED AT [facility] [address] [facility] [address] [id number] 07:22:00* Test Item Value Reference Range Interpretation Comments Magnesium (test code = 55873-3) 1.8 mg/dL 1.6-2.6 Specimen slightly hemolyzed Lab Interpretation (test code = 50463-6) [id number]:22:[facility]* Test Item Value Reference Range Interpretation Comments MAGNESIUM (BEAKER) (test code = 627) 1.8 mg/dL 1.6-2.6 Specimen slightly hemolyzed BASIC METABOLIC [id number] 07:22:00* Test Item Value Reference Range Interpretation Comments SODIUM (BEAKER) (test code = 381) 134 meq/L 136-145 L POTASSIUM (BEAKER) (test code = 379) 4.5 meq/L 3.5-5.1 Specimen slightly hemolyzed CHLORIDE (BEAKER) (test code = 382) 108 meq/L 98-107 H CO2 (BEAKER) (test code = 355) 19 meq/L 22-29 L BLOOD UREA NITROGEN (BEAKER) (test code = 354) 5 mg/dL 7-21 L CREATININE (BEAKER) (test code = 358) 0.62 mg/dL 0.57-1.25 Specimen slightly hemolyzed GLUCOSE RANDOM (BEAKER) (test code = 652) 126 mg/dL 70-105 H CALCIUM (BEAKER) (test code = 697) 8.5 mg/dL 8.4-10.2 EGFR (BEAKER) (test code = 1092) 110 mL/min/1.73 sq m ESTIMATED GFR IS NOT ACCURATE CREATININE CLEARANCE IN PREDICTING GLOMERULAR FILTRATION RATE. ESTIMATED GFR IS NOT APPLICABLE FOR DIALYSIS PATIENTS. HEPATIC FUNCTION [id number] 07:22:00* Test Item Value Reference Range Interpretation Comments TOTAL PROTEIN (BEAKER) (test code = 770) 6.8 gm/dL 6.0-8.3 Specimen slightly hemolyzed ALBUMIN (BEAKER) (test code = 1145) 3.7 g/dL 3.5-5.0 Specimen slightly hemolyzed BILIRUBIN TOTAL (BEAKER) (test code = 377) 1.2 mg/dL 0.2-1.2 Specimen slightly hemolyzed BILIRUBIN DIRECT (BEAKER) (test code = 706) 0.5 mg/dL 0.1-0.5 Specimen slightly hemolyzed ALKALINE PHOSPHATASE (BEAKER) (test code = 346) 94 U/L 40-150 AST (SGOT) (BEAKER) (test code = 353) 131 U/L 5-34 H Specimen slightly hemolyzed ALT (SGPT) (BEAKER) (test code = 347) 86 U/L 6-55 H Specimen slightly hemolyzed CBC W/PLT COUNT & AUTO [id number] 05:32:00* Test Item Value Reference Range Interpretation Comments WHITE BLOOD CELL COUNT (BEAKER) (test code = 775) 6.2 K/ L 3.5- 10.5 RED BLOOD CELL COUNT (BEAKER) (test code = 761) 4.08 M/ L 3.93-5 .22 HEMOGLOBIN (BEAKER) (test code = 410) 12.9 GM/DL 11.2-15.7 HEMATOCRIT (BEAKER) (test code = 411) 37.8 % 34.1-44.9 MEAN CORPUSCULAR VOLUME (BEAKER) (test code = 753) 92.6 fL 79. 4-94.8 MEAN CORPUSCULAR HEMOGLOBIN (BEAKER) (test code = 751) 31.6 pg 25.6-32.2 MEAN CORPUSCULAR HEMOGLOBIN CONC (BEAKER) (test code = 752) 34.1 GM/DL 32.2-35.5 RED CELL DISTRIBUTION WIDTH (BEAKER) (test code = 412) 12.2 % 11.7-14.4 PLATELET COUNT (BEAKER) (test code = 756) 125 K/CU MM 150-450 L MEAN PLATELET VOLUME (BEAKER) (test code = 754) 11.8 fL 9.4-12 .3 NUCLEATED RED BLOOD CELLS (BEAKER) (test code = 413) 0 /100 WBC 0 -0 NEUTROPHILS RELATIVE PERCENT (BEAKER) (test code = 429) 78 % LYMPHOCYTES RELATIVE PERCENT (BEAKER) (test code = 430) 15 % MONOCYTES RELATIVE PERCENT (BEAKER) (test code = 431) 7 % EOSINOPHILS RELATIVE PERCENT (BEAKER) (test code = 432) 0 % BASOPHILS RELATIVE PERCENT (BEAKER) (test code = 437) 0 % NEUTROPHILS ABSOLUTE COUNT (BEAKER) (test code = 670) 4.82 K/ L 1.56-6.13 LYMPHOCYTES ABSOLUTE COUNT (BEAKER) (test code = 414) 0.90 K/ L 1.18-3.74 L MONOCYTES ABSOLUTE COUNT (BEAKER) (test code = 415) 0.45 K/ L 0. 24-0.36 H EOSINOPHILS ABSOLUTE COUNT (BEAKER) (test code = 416) 0.00 K/ L 0.04-0.36 L BASOPHILS ABSOLUTE COUNT (BEAKER) (test code = 417) 0.01 K/ L 0. 01-0.08 IMMATURE GRANULOCYTES-RELATIVE PERCENT (BEAKER) (test code = 2801) 0 % 0-1 POCT-GLUCOSE [id number] 22:19:00* Test Item Value Reference Range Interpretation Comments POC-GLUCOSE METER (BEAKER) (test code = 1538) 225 mg/dL 70-110 H TESTED AT [address] [address] POCT-GLUCOSE [id number] 18:52:00* Test Item Value Reference Range Interpretation Comments POC-GLUCOSE METER (BEAKER) (test code = 1538) 117 mg/dL 70-110 H TESTED AT [address] [address] POCT-GLUCOSE [id number] 16:48:00* Test Item Value Reference Range Interpretation Comments POC-GLUCOSE METER (BEAKER) (test code = 1538) 82 mg/dL 70-110 TESTED AT [address] [address] POCT-GLUCOSE [id number] 14:01:00* Test Item Value Reference Range Interpretation Comments POC-GLUCOSE METER (BEAKER) (test code = 1538) 70 mg/dL 70-110 TESTED AT [address] [address] POCT-GLUCOSE [id number] 13:16:00* Test Item Value Reference Range Interpretation Comments POC-GLUCOSE METER (BEAKER) (test code = 1538) 83 mg/dL 70-110 TESTED AT [address] [address] POCT-GLUCOSE [id number] 11:27:00* Test Item Value Reference Range Interpretation Comments POC-GLUCOSE METER (BEAKER) (test code = 1538) 65 mg/dL 70-110 L TESTED AT [address] [address] Type and screen, [id number] 05:47:00* Test Item Value Reference Range Interpretation Comments ABO/RH AUTOMATED (BEAKER) (test code = 2260) A POSITIVE Ab Scrn (test code = 890-4) NEGATIVE [facility] 05:45:00* Test Item Value Reference Range Interpretation Comments MAGNESIUM (BEAKER) (test code = 627) 1.8 mg/dL 1.6-2.6 BASIC METABOLIC [id number] 05:45:00* Test Item Value Reference Range Interpretation Comments SODIUM (BEAKER) (test code = 381) 140 meq/L 136-145 POTASSIUM (BEAKER) (test code = 379) 3.6 meq/L 3.5-5.1 CHLORIDE (BEAKER) (test code = 382) 107 meq/L 98-107 CO2 (BEAKER) (test code = 355) 25 meq/L 22-29 BLOOD UREA NITROGEN (BEAKER) (test code = 354) 8 mg/dL 7-21 CREATININE (BEAKER) (test code = 358) 0.59 mg/dL 0.57-1.25 GLUCOSE RANDOM (BEAKER) (test code = 652) 79 mg/dL 70-105 CALCIUM (BEAKER) (test code = 697) 8.9 mg/dL 8.4-10.2 EGFR (BEAKER) (test code = 1092) 116 mL/min/1.73 sq m ESTIMATED GFR IS NOT ACCURATE CREATININE CLEARANCE IN PREDICTING GLOMERULAR FILTRATION RATE. ESTIMATED GFR IS NOT APPLICABLE FOR DIALYSIS PATIENTS. HEPATIC FUNCTION [id number] 05:45:00* Test Item Value Reference Range Interpretation Comments TOTAL PROTEIN (BEAKER) (test code = 770) 6.5 gm/dL 6.0-8.3 ALBUMIN (BEAKER) (test code = 1145) 3.9 g/dL 3.5-5.0 BILIRUBIN TOTAL (BEAKER) (test code = 377) 0.9 mg/dL 0.2-1.2 BILIRUBIN DIRECT (BEAKER) (test code = 706) 0.3 mg/dL 0.1-0.5 ALKALINE PHOSPHATASE (BEAKER) (test code = 346) 44 U/L 40-150 AST (SGOT) (BEAKER) (test code = 353) 12 U/L 5-34 ALT (SGPT) (BEAKER) (test code = 347) 11 U/L 6-55 CBC W/PLT COUNT & AUTO [id number] 05:20:00* Test Item Value Reference Range Interpretation Comments WHITE BLOOD CELL COUNT (BEAKER) (test code = 775) 5.6 K/ L 3.5- 10.5 RED BLOOD CELL COUNT (BEAKER) (test code = 761) 4.19 M/ L 3.93-5 .22 HEMOGLOBIN (BEAKER) (test code = 410) 13.3 GM/DL 11.2-15.7 HEMATOCRIT (BEAKER) (test code = 411) 38.5 % 34.1-44.9 MEAN CORPUSCULAR VOLUME (BEAKER) (test code = 753) 91.9 fL 79. 4-94.8 MEAN CORPUSCULAR HEMOGLOBIN (BEAKER) (test code = 751) 31.7 pg 25.6-32.2 MEAN CORPUSCULAR HEMOGLOBIN CONC (BEAKER) (test code = 752) 34.5 GM/DL 32.2-35.5 RED CELL DISTRIBUTION WIDTH (BEAKER) (test code = 412) 12.5 % 11.7-14.4 PLATELET COUNT (BEAKER) (test code = 756) 152 K/CU MM 150-450 MEAN PLATELET VOLUME (BEAKER) (test code = 754) 11.4 fL 9.4-12 .3 NUCLEATED RED BLOOD CELLS (BEAKER) (test code = 413) 0 /100 WBC 0 -0 NEUTROPHILS RELATIVE PERCENT (BEAKER) (test code = 429) 44 % LYMPHOCYTES RELATIVE PERCENT (BEAKER) (test code = 430) 49 % MONOCYTES RELATIVE PERCENT (BEAKER) (test code = 431) 5 % EOSINOPHILS RELATIVE PERCENT (BEAKER) (test code = 432) 2 % BASOPHILS RELATIVE PERCENT (BEAKER) (test code = 437) 0 % NEUTROPHILS ABSOLUTE COUNT (BEAKER) (test code = 670) 2.45 K/ L 1.56-6.13 LYMPHOCYTES ABSOLUTE COUNT (BEAKER) (test code = 414) 2.71 K/ L 1.18-3.74 MONOCYTES ABSOLUTE COUNT (BEAKER) (test code = 415) 0.29 K/ L 0. 24-0.36 EOSINOPHILS ABSOLUTE COUNT (BEAKER) (test code = 416) 0.11 K/ L 0.04-0.36 BASOPHILS ABSOLUTE COUNT (BEAKER) (test code = 417) 0.02 K/ L 0. 01-0.08 IMMATURE GRANULOCYTES-RELATIVE PERCENT (BEAKER) (test code = 2801) 0 % 0-1 POCT-GLUCOSE [id number] 23:59:00* Test Item Value Reference Range Interpretation Comments POC-GLUCOSE METER (BEAKER) (test code = 1538) 77 mg/dL 70-110 TESTED AT [facility] [address] [facility] [address] Urinalysis w/Microscopic + Reflex to [id number] 22:13:00* Test Item Value Reference Range Interpretation Comments Color, UA (test code = 5778-6) Yellow Clarity, UA (test code = 5767-9) Clear Specific [place], UA (test code = 5811-5) 1.013 1.001-1.035 pH, UA (test code = 5803-2) 6.5 5.0-8.0 Protein, UA (test code = 42455-9) 10 mg/dL Negative A Glucose, UA (test code = 365) Negative Negative Ketones, UA (test code = 2514-8) 10 mg/dL Negative A Bilirubin, UA (test code = 25427-5) Negative Negative Blood, UA (test code = 58906-4) Trace Negative A Nitrite, UA (test code = 5802-4) Negative Negative Leukocytes, UA (test code = 5799-2) Negative Negative Urobilinogen, UA (test code = 63006-9) 2.0 mg/dL 0.2-1 H RBC, UA (test code = 06959-5) 8 /HPF WBC, UA (test code = 5821-4) <1 /HPF Mucus (test code = 8247-9) Occasional Squam Epithel, UA (test code = 66556-1) 2 /HPF Specimen Source (test code = 2795) Lab Interpretation (test code = 06492-4) Abnormal [facility] CenterPREGNANCY SCREEN, [id number] 22:13:00* Test Item Value Reference Range Interpretation Comments TEST URINE (BEAKER) (test code = 583) Negative URINALYSIS W/ REFLEX URINE [id number] 22:13:00* Test Item Value Reference Range Interpretation Comments COLOR (BEAKER) (test code = 470) Yellow CLARITY (BEAKER) (test code = 469) Clear SPECIFIC GRAVITY UA (BEAKER) (test code = 468) 1.013 1.001-1 .035 PH UA (BEAKER) (test code = 467) 6.5 5.0-8.0 PROTEIN UA (BEAKER) (test code = 464) 10 mg/dL Negative A GLUCOSE UA (BEAKER) (test code = 365) Negative Negative KETONES UA (BEAKER) (test code = 371) 10 mg/dL Negative A BILIRUBIN UA (BEAKER) (test code = 462) Negative Negative BLOOD UA (BEAKER) (test code = 461) Trace Negative A NITRITE UA (BEAKER) (test code = 465) Negative Negative LEUKOCYTE ESTERASE UA (BEAKER) (test code = 466) Negative Negat brooke UROBILINOGEN UA (BEAKER) (test code = 463) 2.0 mg/dL 0.2-1.0 H RBC UA (BEAKER) (test code = 519) 8 /HPF WBC UA (BEAKER) (test code = 520) < /HPF MUCUS (BEAKER) (test code = 1574) Occasional SQUAMOUS EPITHELIAL (BEAKER) (test code = 516) 2 /HPF SOURCE(BEAKER) (test code = 2795) U/S, ABDOMINAL, [id number] 21:50:00Abdomen limited area? Add comment if clarification is needed.->Gall BladderReason for exam:->suspected cholecysitis. ? symptomatic cholelithiasisFINAL REPORT INDICATION: suspected cholecysitis. ? symptomatic cholelithiasis COMPARISON: None. TECHNIQUE: Real-time transabdominal srivastava scale and color Doppler ultrasound of the abdomen. FINDINGS:Liver: Size: 15.0cm. Echogenicity: Increased parenchymal echogenicity. Masses/lesions: [...] poor acoustic windowing. Body and tail: Not well- seen. Right kidney: Size: 10.1 x 4.9 x [...] acute cholecystitis such as gallbladder distention or peric holecystic fluid if there is persistent clinical concern recommend further evalu ation with HIDA scan. Mild prominence of the common bile duct, however the dista l duct is not well seen. MRCP could be helpful further evaluation if clinically indicated. Signed: Leta Odom MDReport Verified Date/Time: 04/06/2019 21:50:33 0 9:50 PM US abdomen [id number] 21:50:00Interface, External Ris In - 04/06/2019 9:52 PM CDTFINAL REPORT INDICATION: suspected cholecysitis. ? symptomatic cholelithiasis COMPARISON: None. TECHNIQUE: Real- time transabdominal srivastava scale and color Doppler ultrasound of the abdomen. FINDINGS:Liver: Size: 15.0cm. Echogenicity: Increased parenchymal echogenicity. Masses/lesions: [...] x 4.9 x 5.8 cm. Parenchyma: Normal echogenici ty. No cysts. No stones. Hydronephrosis: None. Ascites: None. Regional Vascu lature: The visible abdominal aorta, IVC and hepatic veins are patent. Additiona l findings: None. IMPRESSION: Increased hepatic parenchymal echogenicity sugge stive of hepatic steatosis. Gallbladder wall thickening with wall echo shadow co mplex suggestive of cholelithiasis. Otherwise no findings suspicious for acute c holecystitis such as gallbladder distention or pericholecystic fluid if there is persistent clinical concern recommend further evaluation with HIDA scan. Mild p rominence of the common bile duct, however the distal duct is not well seen. MRC P could be helpful further evaluation if clinically indicated. Signed: Leta Odom MDReport Verified Date/Time: 04/06/2019 21:50:33 Electronically si gned by: LETA ODOM MD on 04/06/2019 09:50 PM [facility]PO[facility] [id number] 18:56:00* Test Item Value Reference Range Interpretation Comments POC-GLUCOSE METER (BEAKER) (test code = 1538) 92 mg/dL 70-110 TESTED AT [facility] [address] [facility] [address] Lipid [id number] 17:45:00* Test Item Value Reference Range Interpretation Comments Triglycerides (test code = 2571-8) 133 mg/dL Cholesterol (test code = 2093-3) 184 mg/dL HDL (test code = 2085-9) 41 mg/dL LDL Calculated (test code = 50371-1) 116 mg/dL RAZIA (test code = RAZIA) Triglyceride Reference Range : Low Risk <150 Borderline 150-199 High Risk 200-499 Very High Risk >=500 Cholesterol Reference Range: Low Risk <200 Borderline 200-239 High Risk >240 HDL Cholesterol Reference Range: Low Risk >=60 High Risk <40 LDL Cholesterol Reference Range: Optimal <100 Near Optimal 100-129 Borderline 130-159 High 160-189 Very High >=190 [facility] CenterMAGNESIUM2019-07-18 17:45:00* Test Item Value Reference Range Interpretation Comments MAGNESIUM (BEAKER) (test code = 627) 2.1 mg/dL 1.6-2.6 BASIC METABOLIC [id number] 17:45:00* Test Item Value Reference Range Interpretation Comments SODIUM (BEAKER) (test code = 381) 139 meq/L 136-145 POTASSIUM (BEAKER) (test code = 379) 3.6 meq/L 3.5-5.1 CHLORIDE (BEAKER) (test code = 382) 106 meq/L 98-107 CO2 (BEAKER) (test code = 355) 27 meq/L 22-29 BLOOD UREA NITROGEN (BEAKER) (test code = 354) 10 mg/dL 7-21 CREATININE (BEAKER) (test code = 358) 0.65 mg/dL 0.57-1.25 GLUCOSE RANDOM (BEAKER) (test code = 652) 79 mg/dL 70-105 CALCIUM (BEAKER) (test code = 697) 9.3 mg/dL 8.4-10.2 EGFR (BEAKER) (test code = 1092) 104 mL/min/1.73 sq m ESTIMATED GFR IS NOT ACCURATE CREATININE CLEARANCE IN PREDICTING GLOMERULAR FILTRATION RATE. ESTIMATED GFR IS NOT APPLICABLE FOR DIALYSIS PATIENTS. LIPID [id number] 17:45:00* Test Item Value Reference Range Interpretation Comments TRIGLYCERIDES (BEAKER) (test code = 540) 133 mg/dL CHOLESTEROL (BEAKER) (test code = 631) 184 mg/dL HDL CHOLESTEROL (BEAKER) (test code = 976) 41 mg/dL LDL CHOLESTEROL CALCULATED (BEAKER) (test code = 633) 116 mg/dL Triglyceride Reference Range: Low Risk <150 Borderline 150-199 High Risk 200-499 Very High Risk >=500Cholesterol Reference Range: Low Risk <200 Borderline 200-239 High Risk >240HDL Cholesterol Reference Range: Low Risk >=60 High Risk <40LDL Cholesterol Reference Range: Optimal <100 Near Optimal 100-129 Borderline 130-159 High 160-189 Very High >=190 HEPATIC FUNCTION [id number] 17:45:00* Test Item Value Reference Range Interpretation Comments TOTAL PROTEIN (BEAKER) (test code = 770) 7.6 gm/dL 6.0-8.3 ALBUMIN (BEAKER) (test code = 1145) 4.5 g/dL 3.5-5.0 BILIRUBIN TOTAL (BEAKER) (test code = 377) 0.6 mg/dL 0.2-1.2 BILIRUBIN DIRECT (BEAKER) (test code = 706) 0.2 mg/dL 0.1-0.5 ALKALINE PHOSPHATASE (BEAKER) (test code = 346) 50 U/L 40-150 AST (SGOT) (BEAKER) (test code = 353) 15 U/L 5-34 ALT (SGPT) (BEAKER) (test code = 347) 14 U/L 6-55 PT/[id number] 17:38:00* Test Item Value Reference Range Interpretation Comments Protime (test code = 5902-2) 13.0 11.9- 14.2 seconds INR (test code = 6301-6) 1.0 <=5.9 PTT (test code = 76900-1) 33.7 22.5- 36.0 seconds RAZIA (test code = RAZIA) Effective 02/15/2019: PT Refe rence Range ChangeNew: 11.9- 14.2 Previous: 11.7-14.7 RECOMMENDED COUMADIN/WARFARIN INR THERAPY RANGESSTANDARD DOSE: 2.0-3.0 Includes: PROPHYLAXIS for venous thrombosis, sys temic embolization; TREATMENT for venous thrombosis and/or pulmonary embolus.HIGH RISK: Target INR is 2.5-3.5 for patients wiht mechanical heart valves. Lab Interpretation (test code = 34948-5) Normal [facility] CenterPT/[id number] 17:38:00* Test Item Value Reference Range Interpretation Comments PROTIME (BEAKER) (test code = 759) 13.0 seconds 11.9-14.2 INR (BEAKER) (test code = 370) 1.0 <=5.9 PARTIAL THROMBOPLASTIN TIME (BEAKER) (test code = 760) 33.7 seconds 22.5-36.0 Effective 02/15/2019: PT Reference Range ChangeNew: 11.9-14.2 Previous: 11.7-14. 7RECOMMENDED COUMADIN/WARFARIN INR THERAPY RANGESSTANDARD DOSE: 2.0-3.0 Include s: PROPHYLAXIS for venous thrombosis, systemic embolization; TREATMENT for venou s thrombosis and/or pulmonary embolus.HIGH RISK: Target INR is 2.5-3.5 for patie nts wiht mechanical heart valves.Prothrombin time/[id number] 17:37:00* Test Item Value Reference Range Interpretation Comments Protime (test code = 5902-2) 13.0 11.9- 14.2 seconds INR (test code = 6301-6) 1.0 <=5.9 RAZIA (test code = RAZIA) Effective 02/15/2019: PT Refe rence Range ChangeNew: 11.9- 14.2 Previous: 11.7-14.7 RECOMMENDED COUMADIN/WARFARIN INR THERAPY RANGESSTANDARD DOSE: 2.0-3.0 Includes: PROPHYLAXIS for venous thrombosis, sys temic embolization; TREATMENT for venous thrombosis and/or pulmonary embolus.HIGH RISK: Target INR is 2.5-3.5 for patients wiht mechanical heart valves. Lab Interpretation (test code = 57698-8) Normal [facility] CenterPROTHROMBIN TIME/[id number] 17:37:00* Test Item Value Reference Range Interpretation Comments PROTIME (BEAKER) (test code = 759) 13.0 seconds 11.9-14.2 INR (BEAKER) (test code = 370) 1.0 <=5.9 Effective 02/15/2019: PT Reference Range ChangeNew: 11.9-14.2 Previous: 11.7-14. 7RECOMMENDED COUMADIN/WARFARIN INR THERAPY RANGESSTANDARD DOSE: 2.0-3.0 Include s: PROPHYLAXIS for venous thrombosis, systemic embolization; TREATMENT for venou s thrombosis and/or pulmonary embolus.HIGH RISK: Target INR is 2.5-3.5 for patie nts wiht mechanical heart valves.CBC W/PLT COUNT & AUTO [id number] 17:26:00* Test Item Value Reference Range Interpretation Comments WHITE BLOOD CELL COUNT (BEAKER) (test code = 775) 5.9 K/ L 3.5- 10.5 RED BLOOD CELL COUNT (BEAKER) (test code = 761) 4.36 M/ L 3.93-5 .22 HEMOGLOBIN (BEAKER) (test code = 410) 13.7 GM/DL 11.2-15.7 HEMATOCRIT (BEAKER) (test code = 411) 40.7 % 34.1-44.9 MEAN CORPUSCULAR VOLUME (BEAKER) (test code = 753) 93.3 fL 79. 4-94.8 MEAN CORPUSCULAR HEMOGLOBIN (BEAKER) (test code = 751) 31.4 pg 25.6-32.2 MEAN CORPUSCULAR HEMOGLOBIN CONC (BEAKER) (test code = 752) 33.7 GM/DL 32.2-35.5 RED CELL DISTRIBUTION WIDTH (BEAKER) (test code = 412) 12.5 % 11.7-14.4 PLATELET COUNT (BEAKER) (test code = 756) 168 K/CU MM 150-450 MEAN PLATELET VOLUME (BEAKER) (test code = 754) 11.2 fL 9.4-12 .3 NUCLEATED RED BLOOD CELLS (BEAKER) (test code = 413) 0 /100 WBC 0 -0 NEUTROPHILS RELATIVE PERCENT (BEAKER) (test code = 429) 51 % LYMPHOCYTES RELATIVE PERCENT (BEAKER) (test code = 430) 41 % MONOCYTES RELATIVE PERCENT (BEAKER) (test code = 431) 7 % EOSINOPHILS RELATIVE PERCENT (BEAKER) (test code = 432) 1 % BASOPHILS RELATIVE PERCENT (BEAKER) (test code = 437) 0 % NEUTROPHILS ABSOLUTE COUNT (BEAKER) (test code = 670) 3.01 K/ L 1.56-6.13 LYMPHOCYTES ABSOLUTE COUNT (BEAKER) (test code = 414) 2.41 K/ L 1.18-3.74 MONOCYTES ABSOLUTE COUNT (BEAKER) (test code = 415) 0.39 K/ L 0. 24-0.36 H EOSINOPHILS ABSOLUTE COUNT (BEAKER) (test code = 416) 0.08 K/ L 0.04-0.36 BASOPHILS ABSOLUTE COUNT (BEAKER) (test code = 417) 0.02 K/ L 0. 01-0.08 IMMATURE GRANULOCYTES-RELATIVE PERCENT (BEAKER) (test code = 2801) 0 % 0-1 [id number] 07:19:00 [place] [address] Patient Name: AARON ROMO MR #: [id number] : 1985 Age/Sex: 33/F Req #: [id number] Adm Physician: Ordered by: ORESTES GARCIAS MD Report #: [id number] Location: ER Room/Bed: Procedure: [id number] US/US GALLBLADDER Exam Date: 04/03/19 Exam Time: 0527 REPORT STATUS: Signed EXAMINATION: Right upper quadrant ultrasound CLINICAL INDICATION: Right up per quadrant pain COMPARISON: None DISCUSSION: Transverse and longitudinal images of the right upper quadrant were obtained. The liver i s normal in size measuring 14.8centimeters in length in the right midclavicula r line and shows increased echogenicity. No focal masses are seen in the liver . There is no intrahepatic biliary dilatation. The common bile duct is no rmal in caliber and measures 0.3 cm. The main portal vein is normal in caliber and measures 1 cm with normal hepatopetal flow. The gallbladder contains gallstones and sludge. The visualized portions of the pancreatic body are u nremarkable. The right kidney measures 11.9 centimeters in length. There i s normal renal cortical echogenicity and no hydronephrosis, mass or shadowing calculi. The visualized portions of the great vessels are normal. No free fluid is seen. IMPRESSION: Cholelithiasis and sludge. No cho lecystitis. Signed by: Dr. Becca Machado M.D. on 04/03/2019 7:21 AM Dictated By: BECCA MACHADO MD 0 Transcribed By: DANIELA on 04/03/19720 COPY TO: ORESTES SKAGGS MD Amylase [id number] 05:39:00* Test Item Value Reference Range Interpretation Comments Amylase Level (test code = 1798-8) 80 25-125 [facility] [id number] 05:26:00* Test Item Value Reference Range Interpretation Comments Sodium Level (test code = 2951-2) 141 136-145 [facility]oundPotassium [id number] 05:26:00* Test Item Value Reference Range Interpretation Comments Potassium Level (test code = 2823-3) 3.6 3.5-5.1 [facility]oundChloride [id number] 05:26:00* Test Item Value Reference Range Interpretation Comments Chloride Level (test code = 2075-0) 106 98-107 [facility] MoundCarbon Dioxide [id number] 05:26:00* Test Item Value Reference Range Interpretation Comments Carbon Dioxide Level (test code = 2028-9) 24 22-29 [facility] MoundAnion [id number] 05:26:00* Test Item Value Reference Range Interpretation Comments Anion Gap (test code = 94674-1) 14.6 8-16 [facility] MoundBlood Urea [id number] 05:26:00* Test Item Value Reference Range Interpretation Comments Blood Urea Nitrogen (test code = 3094-0) 10 7-26 [facility] MoundCreatinine2019-07-15 05:26:00* Test Item Value Reference Range Interpretation Comments Creatinine (test code = 2160-0) 0.70 0.57-1.11 [facility] MoundBUN/Creatinine [id number] 05:26:00* Test Item Value Reference Range Interpretation Comments BUN/Creatinine Ratio (test code = 3097-3) 14 6-25 [facility] MoundEstimat Glomerular Filtration Rate 2019-04-03 05:26:00* Test Item Value Reference Range Interpretation Comments Estimat Glomerular Filtration Rate (test code = 637644181) > 60 >60 Ranges were taken from the National Kidney Disease Education Program and the [facility] [employer] literature.Reference ranges:60 or greater: Qknmvb74-30 ( for 3 consecutive months): Chronic kidney disease 15 or less: Kidney failureTexas Health Presbyterian Hospital Flower MoundGlucose [id number] 05:26:00* Test Item Value Reference Range Interpretation Comments Glucose Level (test code = QQX8445) 108 74-118 [facility]oundCalcium [id number] 05:26:00* Test Item Value Reference Range Interpretation Comments Calcium Level (test code = 51876-8) 9.4 8.4-10.2 [facility]oundTotal [id number] 05:26:00* Test Item Value Reference Range Interpretation Comments Total Bilirubin (test code = 1975-2) 0.7 0.2-1.2 [facility] MoundAspartate Amino Transf (AST/SGOT) 2019-04-03 05:26:00* Test Item Value Reference Range Interpretation Comments Aspartate Amino Transf (AST/SGOT) (test code = Aspartate Amino Transf (AST/SGOT)) 15 5-34 [facility] MoundAlanine Aminotransferase (ALT/SGPT) 2019-04-03 05:26:00* Test Item Value Reference Range Interpretation Comments Alanine Aminotransferase (ALT/SGPT) (test code = 1742-6) 14 0-55 [facility] MoundTotal [id number] 05:26:00* Test Item Value Reference Range Interpretation Comments Total Protein (test code = 2885-2) 7.4 6.5-8.1 [facility] MoundAlbumin2019-07-15 05:26:00* Test Item Value Reference Range Interpretation Comments Albumin (test code = 1751-7) 4.2 3.5-5.0 [facility] MoundGlobulin2019-07-15 05:26:00* Test Item Value Reference Range Interpretation Comments Globulin (test code = 21431-4) 3.2 2.3-3.5 [facility]oundAlbumin/Globulin [id number] 05:26:00 * Test Item Value Reference Range Interpretation Comments Albumin/Globulin Ratio (test code = 1759-0) 1.3 0.8-2.0 [facility]oundAlkaline [id number] 05:26:00* Test Item Value Reference Range Interpretation Comments Alkaline Phosphatase (test code = 6768-6) 50 40-150 [facility] MoundLipase2019-07-15 05:26:00* Test Item Value Reference Range Interpretation Comments Lipase (test code = 3040-3) 51 8-78 [facility] MoundUrine [id number] 05:11:00* Test Item Value Reference Range Interpretation Comments Urine WBC (test code = 5821-4) 6-10 0-5 H [facility] MoundUrine [id number] 05:11:00* Test Item Value Reference Range Interpretation Comments Urine RBC (test code = 83536-5) 21-50 0-5 H [facility] MoundUrine Wrvwlosn5008-77-28 05:11:00* Test Item Value Reference Range Interpretation Comments Urine Bacteria (test code = 78654-4) MODERATE NONE H [facility] MoundUrine Epithelial [id number] 05:11:00 * Test Item Value Reference Range Interpretation Comments Urine Epithelial Cells (test code = 99904-2) MODERATE NONE [facility] MoundUrine [id number] 05:11:00* Test Item Value Reference Range Interpretation Comments Urine Mucus (test code = 8247-9) MODERATE RARE H [facility] MoundWhite Blood [id number] 05:07:00* Test Item Value Reference Range Interpretation Comments White Blood Count (test code = 6690-2) 5.62 4.8-10.8 [facility] MoundRed Blood [id number] 05:07:00* Test Item Value Reference Range Interpretation Comments Red Blood Count (test code = 789-8) 4.53 3.6-5.1 [facility]oundHemoglobin2019-07-15 05:07:00* Test Item Value Reference Range Interpretation Comments Hemoglobin (test code = 96908-6) 14.3 12.0-16.0 [facility]oundHematocrit2019-07-15 05:07:00* Test Item Value Reference Range Interpretation Comments Hematocrit (test code = 4544-3) 41.5 34.2-44.1 [facility] MoundMean Corpuscular [id number] 05:07:00* Test Item Value Reference Range Interpretation Comments Mean Corpuscular Volume (test code = 787-2) 91.6 81-99 [facility]oundMean Corpuscular Znsuzfqdof6576-13-30 05:07:00* Test Item Value Reference Range Interpretation Comments Mean Corpuscular Hemoglobin (test code = 785-6) 31.6 28-32 [facility]oundMean Corpuscular Hemoglobin Concent 2019-04-03 05:07:00* Test Item Value Reference Range Interpretation Comments Mean Corpuscular Hemoglobin Concent (test code = 786-4) 34.5 31-35 [facility]oundRed Cell Distribution [id number] 05:07:00* Test Item Value Reference Range Interpretation Comments Red Cell Distribution Width (test code = 42770-7) 12.9 11.7 -14.4 [facility] MoundPlatelet Djlfr1611-14-02 05:07:00* Test Item Value Reference Range Interpretation Comments Platelet Count (test code = 777-3) 161 140-360 [facility] MoundNeutrophils (%) (Auto)2019-04-03 05:07:00 * Test Item Value Reference Range Interpretation Comments Neutrophils (%) (Auto) (test code = 72197-8) 48.8 38.7-80.0 [facility] MoundLymphocytes (%) (Auto)2019-04-03 05:07:00 * Test Item Value Reference Range Interpretation Comments Lymphocytes (%) (Auto) (test code = 736-9) 41.5 18.0-39.1 H [facility] MoundMonocytes (%) (Auto)2019-04-03 05:07:00* Test Item Value Reference Range Interpretation Comments Monocytes (%) (Auto) (test code = 5905-5) 7.3 4.4-11.3 [facility]2019-[facility]-03 05:07:00 * Test Item Value Reference Range Interpretation Comments Eosinophils (%) (Auto) (test code = 713-8) 1.8 0.0-6.0 [facility] (Auto)2019-04-03 05:07:00* Test Item Value Reference Range Interpretation Comments Basophils (%) (Auto) (test code = 706-2) 0.4 0.0-1.0 [facility]UL[facility] %2019-04-03 05:07:00* Test Item Value Reference Range Interpretation Comments IM GRANULOCYTES % (test code = IM GRANULOCYTES %) 0.2 0.0- 1.0 [facility]utrophils # (Auto)2019-04-03 05:07:00* Test Item Value Reference Range Interpretation Comments Neutrophils # (Auto) (test code = 751-8) 2.8 2.1-6.9 [facility]ymphocytes # (Auto)2019-04-03 05:07:00* Test Item Value Reference Range Interpretation Comments Lymphocytes # (Auto) (test code = 53663-3) 2.3 1.0-3.2 [facility] # (Auto)2019-04-03 05:07:00* Test Item Value Reference Range Interpretation Comments Monocytes # (Auto) (test code = 742-7) 0.4 0.2-0.8 [facility] # (Auto)2019-04-03 05:07:00* Test Item Value Reference Range Interpretation Comments Eosinophils # (Auto) (test code = 711-2) 0.1 0.0-0.4 [facility] # (Auto)2019-04-03 05:07:00* Test Item Value Reference Range Interpretation Comments Basophils # (Auto) (test code = 704-7) 0.0 0.0-0.1 [facility]Absolute Immature Granulocyte (auto 2019-04-03 05:07:00* Test Item Value Reference Range Interpretation Comments Absolute Immature Granulocyte (auto (aurelia t code = Absolute Immature Granulocyte (auto) 0.01 0-0.1 [facility]rine [id number] 05:05:00* Test Item Value Reference Range Interpretation Comments Urine Test (test code = 2106-3) NEGATIVE NEGATIVE [facility] [id number] 05:04:00* Test Item Value Reference Range Interpretation Comments Urine Color (test code = 5778-6) YELLOW YELLOW [facility] [id number] 05:04:00* Test Item Value Reference Range Interpretation Comments Urine Clarity (test code = 75591-5) SL CLOUDY CLEAR [facility] Specific [id number] 05:04:00 * Test Item Value Reference Range Interpretation Comments Urine Specific [place] (test code = 5811-5) >=1.030 1.010-1.02 5 [facility] [id number] 05:04:00* Test Item Value Reference Range Interpretation Comments Urine pH (test code = 54067-4) 6 5-7 [facility] Leukocyte [id number] 05:04:00* Test Item Value Reference Range Interpretation Comments Urine Leukocyte Esterase (test code = 73847-5) NEGATIVE NEGATIV E [facility] [id number] 05:04:00* Test Item Value Reference Range Interpretation Comments Urine Nitrite (test code = 27925-7) NEGATIVE NEGATIVE [facility] [id number] 05:04:00* Test Item Value Reference Range Interpretation Comments Urine Protein (test code = 11365-4) 1+ NEGATIVE H [facility] Glucose (UA)2019-04-03 05:04:00* Test Item Value Reference Range Interpretation Comments Urine Glucose (UA) (test code = 70010-1) NEGATIVE NEGATIVE [facility] [id number] 05:04:00* Test Item Value Reference Range Interpretation Comments Urine Ketones (test code = 62085-0) NEGATIVE NEGATIVE [facility] Hrqhesnrhlxz8959-59-06 05:04:00* Test Item Value Reference Range Interpretation Comments Urine Urobilinogen (test code = 96482-2) 0.2 0.2-1 [facility] [id number] 05:04:00* Test Item Value Reference Range Interpretation Comments Urine Bilirubin (test code = 1977-8) NEGATIVE NEGATIVE [facility] [id number] 05:04:00* Test Item Value Reference Range Interpretation Comments Urine Blood (test code = 22638-7) MODERATE NEGATIVE [facility]POCT-GLUCOSE [id number] 12:46:00* Test Item Value Reference Range Interpretation Comments POC-GLUCOSE METER (BEAKER) (test code = 1538) 85 mg/dL 70-110 [address] AT [address] [address] POCT-GLUCOSE [id number] 09:23:00* Test Item Value Reference Range Interpretation Comments POC-GLUCOSE METER (BEAKER) (test code = 1538) 126 mg/dL 70-110 H TESTED AT [address] [address] COMPREHENSIVE METABOLIC [id number] 06:13:00* Test Item Value Reference Range Interpretation Comments TOTAL PROTEIN (BEAKER) (test code = 770) 7.0 gm/dL 6.0-8.3 ALBUMIN (BEAKER) (test code = 1145) 4.1 g/dL 3.5-5.0 ALKALINE PHOSPHATASE (BEAKER) (test code = 346) 42 U/L 40-150 BILIRUBIN TOTAL (BEAKER) (test code = 377) 0.8 mg/dL 0.2-1.2 SODIUM (BEAKER) (test code = 381) 137 meq/L 136-145 POTASSIUM (BEAKER) (test code = 379) 4.3 meq/L 3.5-5.1 CHLORIDE (BEAKER) (test code = 382) 105 meq/L 98-107 CO2 (BEAKER) (test code = 355) 22 meq/L 22-29 BLOOD UREA NITROGEN (BEAKER) (test code = 354) 4 mg/dL 7-21 L CREATININE (BEAKER) (test code = 358) 0.68 mg/dL 0.57-1.25 GLUCOSE RANDOM (BEAKER) (test code = 652) 129 mg/dL 70-105 H CALCIUM (BEAKER) (test code = 697) 8.7 mg/dL 8.4-10.2 AST (SGOT) (BEAKER) (test code = 353) 51 U/L 5-34 H ALT (SGPT) (BEAKER) (test code = 347) 81 U/L 6-55 H EGFR (BEAKER) (test code = 1092) 98 mL/min/1.73 sq m ESTIMATED GFR IS NOT ACCURATE CREATININE CLEARANCE IN PREDICTING GLOMERULAR FILTRATION RATE. ESTIMATED GFR IS NOT APPLICABLE FOR DIALYSIS PATIENTS. POCT-GLUCOSE [id number] 22:16:00* Test Item Value Reference Range Interpretation Comments POC-GLUCOSE METER (BEAKER) (test code = 1538) 93 mg/dL 70-110 TESTED AT [address] [address] POCT-GLUCOSE [id number] 18:24:00* Test Item Value Reference Range Interpretation Comments POC-GLUCOSE METER (BEAKER) (test code = 1538) 90 mg/dL 70-110 TESTED AT [address] [address] POCT-GLUCOSE [id number] 13:24:00* Test Item Value Reference Range Interpretation Comments POC-GLUCOSE METER (BEAKER) (test code = 1538) 145 mg/dL 70-110 H TESTED AT [address] [address] TISSUE [id number] 10:33:00Surgical Pathology Report Case: [id number] Authorizing Provider: Jim Cleveland MD Collected: 01/03/2019 1024 Ordering Location: [facility] Received: 01/03/2019 1155 SERVICES Pathologist: Leti Lee MD Specimen: Stomach, stomach A. STOMACH, PARTIAL SLEEVE GASTRECTOMY: - OXYNTIC MUCOSA WITH CHRONIC INACTIVE GASTRITIS - NEGATIVE FOR HELICOBACTER PYLORI ORGANISMS (BY H&E EXAMINATION) - NEGATIVE FOR INTESTINAL METAPLASIA, DYSPLASIA, MALIGNANCY Signing Pathologist Direct Phone Line: [phone] signed by Leti Lee MD on 01/04/2019 at 10:33 [id number] obesity, diabetes mellitus without complication StomachThis case [...] rugal folds. There are no discrete masses identified.Word Processing Supervisor sections are submitted as follows.Section code: A1-A4, stapled margin, in its entirety, en face; A5, random sections of gastric wall from one; A6, random section of gastric wall from center of specimen; A7, random section of gastric wall opposite end. KENYATTA/ewPerformed.POCT-GLUCOSE METER 2019-01-04 08:28:00* Test Item Value Reference Range Interpretation Comments POC-GLUCOSE METER (BEAKER) (test code = 1538) 127 mg/dL 70-110 H TESTED AT [address] [address] COMPREHENSIVE METABOLIC [id number] 03:52:00* Test Item Value Reference Range Interpretation Comments TOTAL PROTEIN (BEAKER) (test code = 770) 6.6 gm/dL 6.0-8.3 ALBUMIN (BEAKER) (test code = 1145) 3.9 g/dL 3.5-5.0 ALKALINE PHOSPHATASE (BEAKER) (test code = 346) 38 U/L 40-150 L BILIRUBIN TOTAL (BEAKER) (test code = 377) 0.9 mg/dL 0.2-1.2 SODIUM (BEAKER) (test code = 381) 139 meq/L 136-145 POTASSIUM (BEAKER) (test code = 379) 4.3 meq/L 3.5-5.1 CHLORIDE (BEAKER) (test code = 382) 107 meq/L 98-107 CO2 (BEAKER) (test code = 355) 24 meq/L 22-29 BLOOD UREA NITROGEN (BEAKER) (test code = 354) 6 mg/dL 7-21 L CREATININE (BEAKER) (test code = 358) 0.69 mg/dL 0.57-1.25 GLUCOSE RANDOM (BEAKER) (test code = 652) 132 mg/dL 70-105 H CALCIUM (BEAKER) (test code = 697) 8.5 mg/dL 8.4-10.2 AST (SGOT) (BEAKER) (test code = 353) 92 U/L 5-34 H ALT (SGPT) (BEAKER) (test code = 347) 101 U/L 6-55 H EGFR (BEAKER) (test code = 1092) 97 mL/min/1.73 sq m ESTIMATED GFR IS NOT ACCURATE CREATININE CLEARANCE IN PREDICTING GLOMERULAR FILTRATION RATE. ESTIMATED GFR IS NOT APPLICABLE FOR DIALYSIS PATIENTS. CBC W/PLT COUNT & AUTO [id number] 03:29:00* Test Item Value Reference Range Interpretation Comments WHITE BLOOD CELL COUNT (BEAKER) (test code = 775) 8.0 K/ L 3.5- 10.5 RED BLOOD CELL COUNT (BEAKER) (test code = 761) 4.15 M/ L 3.93-5 .22 HEMOGLOBIN (BEAKER) (test code = 410) 13.2 GM/DL 11.2-15.7 HEMATOCRIT (BEAKER) (test code = 411) 38.9 % 34.1-44.9 MEAN CORPUSCULAR VOLUME (BEAKER) (test code = 753) 93.7 fL 79. 4-94.8 MEAN CORPUSCULAR HEMOGLOBIN (BEAKER) (test code = 751) 31.8 pg 25.6-32.2 MEAN CORPUSCULAR HEMOGLOBIN CONC (BEAKER) (test code = 752) 33.9 GM/DL 32.2-35.5 RED CELL DISTRIBUTION WIDTH (BEAKER) (test code = 412) 12.6 % 11.7-14.4 PLATELET COUNT (BEAKER) (test code = 756) 161 K/CU MM 150-450 MEAN PLATELET VOLUME (BEAKER) (test code = 754) 10.7 fL 9.4-12 .3 NUCLEATED RED BLOOD CELLS (BEAKER) (test code = 413) 0 /100 WBC 0 -0 NEUTROPHILS RELATIVE PERCENT (BEAKER) (test code = 429) 76 % LYMPHOCYTES RELATIVE PERCENT (BEAKER) (test code = 430) 18 % MONOCYTES RELATIVE PERCENT (BEAKER) (test code = 431) 7 % EOSINOPHILS RELATIVE PERCENT (BEAKER) (test code = 432) 0 % BASOPHILS RELATIVE PERCENT (BEAKER) (test code = 437) 0 % NEUTROPHILS ABSOLUTE COUNT (BEAKER) (test code = 670) 6.03 K/ L 1.56-6.13 LYMPHOCYTES ABSOLUTE COUNT (BEAKER) (test code = 414) 1.39 K/ L 1.18-3.74 MONOCYTES ABSOLUTE COUNT (BEAKER) (test code = 415) 0.52 K/ L 0. 24-0.36 H EOSINOPHILS ABSOLUTE COUNT (BEAKER) (test code = 416) 0.00 K/ L 0.04-0.36 L BASOPHILS ABSOLUTE COUNT (BEAKER) (test code = 417) 0.00 K/ L 0. 01-0.08 L IMMATURE GRANULOCYTES-RELATIVE PERCENT (BEAKER) (test code = 2801) 0 % 0-1 POCT-GLUCOSE [id number] 23:39:00* Test Item Value Reference Range Interpretation Comments POC-GLUCOSE METER (BEAKER) (test code = 1538) 147 mg/dL 70-110 H TESTED AT [facility] [address] [facility] [address] POCT-GLUCOSE [id number] 17:19:00* Test Item Value Reference Range Interpretation Comments POC-GLUCOSE METER (BEAKER) (test code = 1538) 179 mg/dL 70-110 H TESTED AT [facility] [address] [facility] [address] POCT-GLUCOSE [id number] 11:41:00* Test Item Value Reference Range Interpretation Comments POC-GLUCOSE METER (BEAKER) (test code = 1538) 194 mg/dL 70-110 H TESTED AT [address] [address] POCT-GLUCOSE [id number] 08:54:00* Test Item Value Reference Range Interpretation Comments POC-GLUCOSE METER (BEAKER) (test code = 1538) 128 mg/dL 70-110 H TESTED AT [address] [address] POCT-GLUCOSE [id number] 06:16:00* Test Item Value Reference Range Interpretation Comments POC-GLUCOSE METER (BEAKER) (test code = 1538) 181 mg/dL 70-110 H TESTED AT [address] [address] [id number] 17:06:00* Test Item Value Reference Range Interpretation Comments SODIUM (BEAKER) (test code = 381) 139 meq/L 136-145 POTASSIUM (BEAKER) (test code = 379) 3.9 meq/L 3.5-5.1 Specimen slightly hemolyzed CHLORIDE (BEAKER) (test code = 382) 101 meq/L 98-107 CO2 (BEAKER) (test code = 355) 29 meq/L 22-29 [id number] 17:06:00* Test Item Value Reference Range Interpretation Comments GLUCOSE RANDOM (BEAKER) (test code = 652) 158 mg/dL 70-105 H BUN AND [id number] 17:06:00* Test Item Value Reference Range Interpretation Comments BLOOD UREA NITROGEN (BEAKER) (test code = 354) 13 mg/dL 7-21 CREATININE (BEAKER) (test code = 358) 0.65 mg/dL 0.57-1.25 Specimen slightly hemolyzed EGFR (BEAKER) (test code = 1092) 104 mL/min/1.73 sq m ESTIMATED GFR IS NOT ACCURATE CREATININE CLEARANCE IN PREDICTING GLOMERULAR FILTRATION RATE. ESTIMATED GFR IS NOT APPLICABLE FOR DIALYSIS PATIENTS. [id number] 16:54:00* Test Item Value Reference Range Interpretation Comments HEMOGLOBIN (YANDEL) (test code = 410) 14.5 GM/DL 11.2-15.7 PLATELET [id number] 16:54:00* Test Item Value Reference Range Interpretation Comments PLATELET COUNT (YANDEL) (test code = 756) 157 K/CU MM 150-450 POCT-GLUCOSE [id number] 07:44:00* Test Item Value Reference Range Interpretation Comments POC-GLUCOSE METER (YANDEL) (test code = 1538) 191 mg/dL 70-110 H TESTED AT [facility] [address] [facility] [address] TISSUE [id number] 12:54:00Surgical Pathology Report Case: [id number] Authorizing Provider: Luis Alfredo Ceron Collected: 11/16/2018 1410 Ordering Location: [facility] Received: 11/16/2018 1647 SERVICES Pathologist: Nayeli Mortensen MD Specimens: A) - Biopsy, Gastric B) - Polyp, Gastric, x 3 A. STOMACH, BIOPSIES: - INTESTINAL METAPLASIA - CHRONIC INACTIVE GASTRITISB. STOMACH, POLYPECTOMIES: - FUNDIC GLAND POLYP - CHRONIC INACTIVE GASTRITIS ANATOLIYK/lauren Signing Pathologist Direct Phone Line: [phone] signed by Nayeli Mortensen MD on 11/17/2018 at 12:54 [id number] x2; [id number] A. Gastric biopsy. B. Gastric polyp [id number] is received in two containers of formalin [...] stains. Immunohistochemistry technical testing was performed at [facility], Pathology Laboratory where it was developed and [...] to perform high complexity clinical laboratory testing.POCT-GLUCOSE [id number] 13:01:00* Test Item Value Reference Range Interpretation Comments POC-GLUCOSE METER (ChallengePost) (test code = 1538) 107 mg/dL 70-110 TESTED AT [facility] [address] [facility] [address] RAD, CHEST, 2 [id number] 14:28:00Reason for exam:->CHEST PAINIs the patient ?->NoShould this be performed at the bedside?->NoFINAL REPORT Two views chest Discussion: Sternotomy changes and mediastinal clip are noted. Heart size normal. Lungs clear. No effusion or pneumothorax. Signed: Brittany Umana Verified Date/Time: 11/15/2017 14:28:44 Reading Location: [address] Consult Reading Room [id number] 14:14:00* Test Item Value Reference Range Interpretation Comments D-DIMER QUANTITATIVE (ChallengePost) (test code = 671) 0.30 MG/L FEU <0.50 REGARDING D-DIMER RESULTS: Results of this D-Dimer test should always be interpr eted in conjunction with the patient's medical history, clinical presentation an d other findings. DVT clinical diagnosis should not be based on the results of I NNOVANCE D-Dimer alone.RAPID TROPONIN [id number] 14:12:00* Test Item Value Reference Range Interpretation Comments RAPID TROPONIN I (ChallengePost) (test code = 1483) < ng/mL <0.05 RAPID [id number] 14:12:00* Test Item Value Reference Range Interpretation Comments RAPID CKMB (BEAKER) (test code = 1482) < ng/mL 0.0-4.3 BASIC METABOLIC [id number] 14:06:00* Test Item Value Reference Range Interpretation Comments SODIUM (BEAKER) (test code = 381) 140 meq/L 135-148 POTASSIUM (BEAKER) (test code = 379) 4.0 meq/L 3.6-5.5 CHLORIDE (BEAKER) (test code = 382) 100 meq/L 98-106 CO2 (BEAKER) (test code = 355) 26 meq/L 24-32 BLOOD UREA NITROGEN (BEAKER) (test code = 354) 8 mg/dL 10-26 L CREATININE (BEAKER) (test code = 358) 0.47 mg/dL 0.50-1.20 L GLUCOSE RANDOM (BEAKER) (test code = 652) 379 mg/dL 70-110 H CALCIUM (BEAKER) (test code = 697) 9.3 mg/dL 8.5-10.5 EGFR (BEAKER) (test code = 1092) 152 mL/min/1.73 sq m ESTIMATED GFR IS NOT ACCURATE CREATININE CLEARANCE IN PREDICTING GLOMERULAR FILTRATION RATE. ESTIMATED GFR IS NOT APPLICABLE FOR DIALYSIS PATIENTS. CBC W/PLT COUNT & AUTO [id number] 14:02:00* Test Item Value Reference Range Interpretation Comments WHITE BLOOD CELL COUNT (BEAKER) (test code = 775) 5.8 10e3/ L 4.0- 10.0 RED BLOOD CELL COUNT (BEAKER) (test code = 761) 4.77 10e6/ L 4.00-5 .00 HEMOGLOBIN (BEAKER) (test code = 410) 15.3 g/dL 12.0-15.0 H HEMATOCRIT (BEAKER) (test code = 411) 45.6 % 36.0-45.0 H MEAN CORPUSCULAR VOLUME (BEAKER) (test code = 753) 95.5 fL 82. 0-99.0 MEAN CORPUSCULAR HEMOGLOBIN (BEAKER) (test code = 751) 32.1 pg 27.0-33.0 MEAN CORPUSCULAR HEMOGLOBIN CONC (BEAKER) (test code = 752) 33.6 g/dL 32.0-36.0 RED CELL DISTRIBUTION WIDTH (BEAKER) (test code = 412) 11.3 % 10.3-14.2 PLATELET COUNT (BEAKER) (test code = 756) 174 10e3/ L 150-430 MEAN PLATELET VOLUME (BEAKER) (test code = 754) 8.6 fL 6.5-10 .5 NEUTROPHILS RELATIVE PERCENT (BEAKER) (test code = 429) 58 % LYMPHOCYTES RELATIVE PERCENT (BEAKER) (test code = 430) 35 % MONOCYTES RELATIVE PERCENT (BEAKER) (test code = 431) 5 % EOSINOPHILS RELATIVE PERCENT (BEAKER) (test code = 432) 1 % BASOPHILS RELATIVE PERCENT (BEAKER) (test code = 437) 1 % NEUTROPHILS ABSOLUTE COUNT (BEAKER) (test code = 670) 3.37 10e3/ L 1.80-8.00 LYMPHOCYTES ABSOLUTE COUNT (BEAKER) (test code = 414) 2.01 10e3/ L 1.48-4.50 MONOCYTES ABSOLUTE COUNT (BEAKER) (test code = 415) 0.29 10e3/ L 0. 00-1.30 EOSINOPHILS ABSOLUTE COUNT (BEAKER) (test code = 416) 0.06 10e3/ L 0.00-0.50 BASOPHILS ABSOLUTE COUNT (BEAKER) (test code = 417) 0.04 10e3/ L 0. 00-0.20
--- OUTSIDE RECORDS SUMMARY | 2020-02-22 18:22 | XMS REPORT | Summary of Care ---
Author Author [facility] Organization [facility] Address Unknown Phone Unavailable Care Team Providers Care Intervention Manager Name Role Phone [employer] 34 [phone] Yuriy Loza MD PCP Reason for Visit * Reason Comments Annual Exam Encounter Details Care Team Description Date Type Department Yuriy Loza Jr., MD [address] [place] [address] Annual Exam 06/06/2019 Office Visit [facility] General Internal Medicine [address] 8[address]; [address] [place] [address] Allergies No Known Allergiesdocumented as of this encounter (statuses as of 06/07/2019) Medications End Date Status Medication Sig Dispensed Refills Start Date Active Cholecalciferol (VITAMIN Take 50,000 0 D3) 35763 units CAPS Units by mouth every [address]. Active [address] 1 Units 4 Ring 3 estradiol-etonogestrel vaginally See 9 (NUVARING) 0.12-0.015 Admin MG/24HR vaginal Instructions. insertIndications: PCOS (polycystic ovarian syndrome) Active Continuous Blood Gluc 2 Each every 2 Each 6 Sensor (FREESTYLE SHAMA 14 days. 9 SENSOR SYSTEM) Change MISCIndications: Type 2 sensors every diabetes mellitus with 14 days; Dx hyperglycemia, with E11.9 long-term current use of insulin (HCCode) Active hydrocodone-acetaminophen Take 1 Tab by 30 Tab 0 (NORCO) 10-325 MG per mouth every 8 9 tablet hours as needed for Pain. Active BD PEN NEEDLE ANGELICA U/F 1 Each daily. 100 Each 3 0 32G X 4 MM 9 MISCIndications: Type 2 diabetes mellitus with hyperglycemia, with long-term current use of [place] trazodone (DESYREL) 50 MG Take 1 Tab by 90 Tab 2 tabletIndications: mouth nightly 9 Primary insomnia as needed for Sleep. Active metformin (GLUCOPHAGE-XR) Take 1 Tab by 90 Tab 3 500 MG XR mouth daily. 9 tabletIndications: Controlled type 2 diabetes mellitus with hypoglycemia, without long-term current use of insulin [place] 06/06/2019 Discontinued metformin (GLUCOPHAGE-XR) Take 1 Tab by 270 Tab 3 500 MG XR mouth 3 times 9 tabletIndications: daily (before Uncontrolled type 2 meals). diabetes mellitus with complication, with long-term current use of insulin [place] [place] 06/06/2019 Discontinued Insulin Glargine Inject 10 5 Pen 3 (BASAGLAR KWIKPEN) 100 Units into 9 UNIT/ML SOPNIndications: the skin Type 2 diabetes mellitus nightly. with hyperglycemia, with long-term current use of insulin [place] [place] 06/06/2019 Discontinued metformin (GLUCOPHAGE-XR) Take 1 Tab by 90 Tab 3 500 MG XR mouth daily. 9 tabletIndications: Controlled type 2 diabetes mellitus with hypoglycemia, without long-term current use of insulin [facility] 06/06/2019 Discontinued trazodone (DESYREL) 50 MG Take 1 Tab by 90 Tab 2 tabletIndications: mouth nightly 9 Primary insomnia as needed for Sleep. documented as of this encounter (statuses as of 06/07/2019) Active Problems Problem Noted Date History of weight loss surgery 03/16/2019 Tonsillar hypertrophy 07/01/2017 Last Assessment & Plan: Assymetrical, will refer to Dr Ayala Type 2 diabetes mellitus [place] [place] 07/01/2017 Obesity (BMI 30-39.9) 07/01/2017 Last Assessment & Plan: Counseled on wt loss with healthy diet and exercise JOSE J (obstructive sleep apnea) 07/01/2017 Last Assessment & Plan: Pt with JOSE J on HST with obesity ,diabe aurelia , daytime sleepiness, non restorative sleep Discussed with patient the pathophysiol ogy of sleep apnea, and treatment options Pt agreeable to use CPAP, will order Au to-CPAP @ 7-15 cm h2O Will follow up with download in 6 weeks , to confirm compliance and adequacy of current settings Pt to call if any difficulties with CPA P use Hyperandrogenemia 02/24/2017 History of PCOS 05/05/2016 Non-smoker 05/05/2016 Hepatomegaly 03/12/2016 Overview: Last Assessment & Plan: Mild hepatomegaly with hepatic steatosi s noted on recent CT scan. She has numerous risk factors for liver disease which include morbid obesity, NIDDM, metabolic syndrome, and previous piercings and tattoos. We will obtain labs screening for ge netic, autoimmune, and metabolic etiologies of liver disease. She may benefit from hepatology refe rral for additional management. Immunity status testing 03/12/2016 Overview: Last Assessment & Plan: All patients with chronic liver disease , regardless of etiology, should be immunized to prevent hepatitis A and he patitis B if they are not already immune. We will test for immunity to swapnil th viruses - vaccine recommendations will follow. Liver mass 03/12/2016 Overview: Last Assessment & Plan: Recent CT scan [...] mo nths to document stability of masses. documented as of this encounter (statuses as of 06/07/2019) Immunizations Name Administration Dates Next Due Influenza Quad-PF 06/02/2018, 06/18/2017, Influenza Quadrivalent 06/02/2018, 06/18/2017 3YRS+ Tdap 11/28/2015 documented as of this encounter Social History Date Tobacco Use Types Packs/Day Years Used Never Smoker Smokeless Tobacco: Never Used Drinks/Week oz/Week Comments Alcohol Use 1 Standard drinks or equivalent 0.6 social, wine. No Sex Assigned at Date Recorded Not on file Industry Job Start Date Occupation Not on file Not on file Not on file Travel End Travel History Travel Start No recent travel history available. documented as of this encounter Last Filed Vital Signs Reading Time Taken Comments Vital Sign 128/68 06/06/2019 2:58 PM CDT Blood Pressure 87 06/06/2019 2:58 PM CDT Pulse 37.1 C (98.7 F) 06/06/2019 2:58 PM CDT Temperature - - Respiratory Rate 100% 06/06/2019 2:58 PM CDT Oxygen Saturation - - Inhaled Oxygen Concentration 91.6 kg (202 lb) 06/06/2019 2:58 PM CDT Weight 163.8 cm (5' 4.5") 06/06/2019 2:58 PM CDT Height 34.14 06/06/2019 2:58 PM CDT Body Mass Index documented in this encounter Patient Instructions * Patient Instructions* Yuriy Loza Jr., MD - 06/06/2019 4:00 PM CDT Your Body mass index is 34.14 kg/m. Body mass index (BMI) can help you see if your weight is raising your risk for h ealth problems. It uses a formula to compare how much you weigh with how tall yo u are. A BMI between 18.5 and 24.9 is considered healthy. A BMI between 25 and 2 9.9 is considered overweight. A BMI of 30 or higher is considered obese. If your BMI is in the normal range, it means that you have a lower risk for weig ht-related health problems. If your BMI is in the overweight or obese range, you may be at increased risk for weight-related health problems, such as high blood pressure, heart disease, stroke, arthritis or joint pain, and diabetes. BMI is just one measure of your risk for weight-related health problems. You may be at higher risk for health problems if you are not active, you eat an unhealt hy diet, or you drink too much alcohol or use tobacco products. Follow-up care is a swain part of your treatment and safety. Be sure to make and g o to all appointments, and call your doctor if you are having problems. It's als o a good idea to know your test results and keep a list of the medicines you christine e. How can you care for yourself at home? Practice healthy eating habits. This includes eating plenty of fruits, vegeta bles, whole grains, lean protein, and low-fat dairy. Get at least 30 minutes of exercise 5 days a week or more. Brisk walking is a good choice. You also may want to do other activities, such as running, swimmin g, cycling, or playing tennis or team sports. Do not smoke. Smoking can increase your risk for health problems. If you need help quitting, talk to your doctor about stop-smoking programs and medicines. T hese can increase your chances of quitting for good. Limit alcohol Where can you learn more? Go to www.[employer].BarEye Go to the Search tab with the magnifying glass on the right side of [employer] home page. Enter S176 in the search box to learn more about "Body Mass Index: Care Instruct ions." documented in this encounter Progress Notes * Yuriy Loza Jr., MD - 06/06/2019 4:00 PM CDT History of Present Illness: HPI Ms Hector is a 33 yo who presents for preventative health care. Reports has had issues with hypoglycemic spells while on basaglar. Restarted basaglar when she noticed a post-prandial blood sugar of 180 mg/dl But later that night had blood sugars in the 40s mg/dl. "my sugars stay about 80-90 mg/dl". Most post-prandial sugars are in the 140 mg/dl. Interested in improving her fertility changes. Wants to try about this time next year. Reports poor sleep over the past month. One night felt like only had an hour of sleep. "I'm getting an average of 3-4 hours of sleep a night". Difficulties falling asleep. Reports has tried over the counter melatonin. Takes over an hour to fall asleep. Reports that the sleep issues have been present since her cholecystectomy. Repor ts incredible stress in her life. Reports some marital issues. Says she thinks about it a lot. Reports feels anxious. Meditation works for her. Working out lately. PMH: she reports that she has never smoked. She has never used smokeless tobacco. She reports that she does not drink alcohol or use drugs. Past Medical History: Diagnosis Date Diabetes mellitus (HCCode) 2015 Type 2 HLD (hyperlipidemia) 08/19/17 - off meds for attempts HTN (hypertension) PCOS (polycystic ovarian syndrome) VSD (ventricular septal defect) s/p repair Past Surgical History: Procedure Laterality Date HX CARDIAC SURGERY 1990 heart murmur HX CHOLECYSTECTOMY, LAPAROSCOPIC 04/07/2019 HX LAPAROSCOPIC SLEEVE GASTRECTOMY 01/02/2019 Family History Problem Relation Name Age of Onset High Cholesterol Father Coronary Artery Disease Father 50 Diabetes Maternal Grandfather Other (gallstones) Mother Coronary Artery Disease Paternal Grandmother Diabetes Paternal Grandmother Colon Cancer Neg Hx Colon Polyps Neg Hx Medications: Current Outpatient Medications on File Prior to Visit Medication Sig Dispense Refill BD PEN NEEDLE ANGELICA U/F 32G X 4 MM MISC 1 Each daily. 100 Each 3 Cholecalciferol (VITAMIN D3) 74515 units CAPS Take 50,000 Units by mouth irma ry 7 days. Continuous Blood Gluc Sensor ([employer] SHAMA SENSOR SYSTEM) MISC 2 Each irma ry 14 days. Change sensors every 14 days; Dx E11.9 2 Each 6 ethinyl estradiol-etonogestrel (NUVARING) 0.12-0.015 MG/24HR vaginal insert Place 1 Units vaginally See Admin Instructions. 4 Ring 3 hydrocodone-acetaminophen (NORCO) 10-325 MG per tablet Take 1 Tab by mouth e very 8 hours as needed for Pain. 30 Tab 0 Insulin Glargine (BASAGLAR KWIKPEN) 100 UNIT/ML SOPN Inject 10 Units into th e skin nightly. 5 Pen 3 No current facility-administered medications on file prior to visit. Reviewed. Updated on medication reconciliation in [facility]. Allergies: No Known Allergies Social hx: Reviewed and updated in [facility]. Review of Systems: Review of Systems Constitutional: Negative for chills and fever. HENT: Negative for congestion, rhinorrhea and sneezing. Eyes: Negative for visual disturbance. Respiratory: Negative for cough, shortness of breath and wheezing. Cardiovascular: Negative for chest pain, palpitations and leg swelling. Gastrointestinal: Negative for constipation, diarrhea, nausea and vomiting. Endocrine: Positive for polydipsia and polyuria. Genitourinary: Positive for menstrual problem. Negative for difficulty urinating , dysuria and pelvic pain. Musculoskeletal: Negative for back pain and gait problem. Skin: Negative for pallor and rash. Psychiatric/Behavioral: Negative for dysphoric mood, self-injury and sleep distu rbance. The patient is nervous/anxious. Physical Exam: Vitals: 06/06/19 1458 BP: 128/68 Pulse: 87 Temp: 98.7 F (37.1 C) TempSrc: Oral SpO2: 100% Weight: 202 lb (91.6 kg) Height: 5' 4.5" (1.638 m) Physical Exam Constitutional: She is oriented to person, place, and time. She appears well-dev eloped and well-nourished. No distress. HENT: Mouth/Throat: Oropharynx is clear and moist. No oropharyngeal exudate. Eyes: Conjunctivae are normal. Neck: Neck supple. Cardiovascular: Regular rhythm and normal heart sounds. Exam reveals no friction rub. No murmur heard. Pulmonary/Chest: Effort normal and breath sounds normal. No stridor. No respirat ory distress. She has no wheezes. Abdominal: Soft. Bowel sounds are normal. She exhibits no distension. There is n o tenderness. There is no rebound. Musculoskeletal: She exhibits no edema. Neurological: She is alert and oriented to person, place, and time. Skin: Skin is warm and dry. She is not diaphoretic. Psychiatric: She has a normal mood and affect. Her behavior is normal. Vitals reviewed. Assessment and Plan: Letty was seen today for annual exam. Diagnoses and all orders for this visit: Preventative health care Controlled type 2 diabetes mellitus with hypoglycemia, without long-term current use of insulin (HCCode) - Discontinue: metformin (GLUCOPHAGE-XR) 500 MG XR tablet; Take 1 Tab by constance daily. - metformin (GLUCOPHAGE-XR) 500 MG XR tablet; Take 1 Tab by mouth daily. Primary insomnia - Discontinue: trazodone (DESYREL) 50 MG tablet; Take 1 Tab by mouth nightly as needed for Sleep. - trazodone (DESYREL) 50 MG tablet; Take 1 Tab by mouth nightly as needed fo r Sleep. Increased BMI (body mass index) Routine screening for STI (sexually transmitted infection) - HIV AB/AG 4TH GEN W RFLX - HEPATITIS C ANTIBODY - HEPATITIS B SURFACE ANTIGEN - CT/GC ISAEL/TMA,CERVICAL/URETHRAL AND URINE - RPR NON-REFLEX QUALITATIVE s/p bariatric surgery with hypoglycemic spells on insulin. Stop the insulin. Will re-initiate metformin given still elevated A1c (although modest). Metformin should help patient achieve weight loss. Yuriy Loza MD documented in this encounter Plan of Treatment Care Team Description Date Type Specialty Jim Cleveland MD [address] [facility] 8th [address] [place] [address] 07/24/2019 Office Visit Bariatrics Date/Time Name Type Priority Associated Diag noses 06/06/2019 4:[address]/GC Microbiology Routine Routine screeni ng for STI ISAEL/TMA,CERVICAL/URETHRAL (sexually transmitted AND URINE infection) Health Maintenance Due Date Last Done Comments ANNUAL DIABETIC FOOT EXAM 2001 ANNUAL DIABETIC 03/02/2019 03/02/2018, 018, 09/22/2017 RETINOPATHY SCREENING FLU VACCINE > 6 MONTHS 04/20/2019 06/02/2018, , 06/02/2018, Additional history exists BMI FOLLOW UP PLAN 06/06/2020 06/06/2019 CERVICAL CANCER SCREENING 10/29/2020 10/29/2017 3 YEAR FOLLOW UP TETANUS SHOT (ADULT) 11/27/2025 11/28/2015 HIV SCREENING Completed 12/16/2018, 018, 05/28/2016 documented as of this encounter Procedures Comments Procedure Name Priority Date/Time Associated Diag nosis HIV AB/AG 4TH GEN W RFLX Routine 06/06/2019 Routi ne screening for STI 4:06 PM CDT (sexually transmitted infection) HEPATITIS C ANTIBODY Routine 06/06/2019 Routine s creening for STI 4:06 PM CDT (sexually transmitted infection) RPR NON-REFLEX Routine 06/06/2019 Routine screeni ng for STI QUALITATIVE 4:06 PM CDT (sexually transmitt ed infection) HEPATITIS B SURFACE Routine 06/06/2019 Routine sc reening for STI ANTIGEN 4:06 PM CDT (sexually transmitt ed infection) documented in this encounter Results * RPR NON-REFLEX QUALITATIVE (06/06/2019 4:06 PM CDT) RPR NON-REFLEX NON-REACTIVE NON-REACTIVE CPL Comment: Unless Otherwise Indicated, All Testing Performed At: [facility] [address] [address] Park Services Specialist: Perez Marques M.D. CLIA Number [id number]. [id number] Specimen Blood Performing Organization Address [facility] one Number [address] [address] [phone] * HEPATITIS B SURFACE ANTIGEN (06/06/2019 4:06 PM CDT) Pathologist [facility] HEP BS ANTIGEN NON-REACTIVE NON-REACTIVE CPL Comment: Unless Otherwise Indicated, All Testing Performed At: [facility] [address] [address] Park Services Specialist: Perez Marques M.D. CLIA Number [id number]. [id number] Specimen Blood Performing Organization Address [facility] one Number [address] [address] * HEPATITIS C ANTIBODY (06/06/2019 4:06 PM CDT) Pathologist [facility] HEP C ANTIBODY NON-REACTIVE NON-REACTIVE CPL HCV INDEX 0.18 SEE BELOW CPL Comment: $$$$ INTERPRETIVE INFORMATION $$$$ HCV INDEX INTERPRETATION <0.80 NEGATIVE 0. 80-0.99 EQUIVOCAL 1. 00-4.99 WEAK POSITIVE >=5.00 STRONG POSITIVE Note: Methodology is [employer] Techn[employer] CMIA technology.A repeatedly reactive result is consistent with current HCV infection, past HCV infection that has resolved, or biologic false positivity for HCV antibody. CDC recommends HCV RNA for a new diagnosis of current HCV infection. (See https://www.cdc.gov/hepatitis/ hcv/profresourcesc.htm) Unless Otherwise Indicated, All Testing Performed At: [facility] [address] Park Services Specialist: Perez Marques M.D. CLIA Number [id number] [place]. [id number] Specimen Blood Performing Organization Address [facility] [address] [phone] * HIV AB/AG 4TH GEN W RFLX (06/06/2019 4:06 PM CDT) HIV AB/AG 4TH NON-REACTIVE NON-REACTIVE CPL GEN W RFLX Comment: Unless Otherwise Indicated, All Testing Performed At: [facility], [address] [place] [address] Park Services Specialist: Perez Marques M.D. [place] Number [id number] [place]. [id number] Specimen Performing Organization Address City/State/Zipcode Ph one Number [facility] [address] [place] [phone] documented in this encounter Visit Diagnoses Diagnosis Preventative health care - Primary Routine general medical examination at a health care facility Controlled type 2 diabetes mellitus wit h hypoglycemia, without long-term current use of insulin (HCCode) Primary insomnia Persistent disorder of initiating or ma intaining sleep Increased BMI (body mass index) Routine screening for STI (sexually tra nsmitted infection) Screening examination for venereal dise ase documented in this encounter Insurance Type Payer Benefit Subscriber ID Effective Phone Address Plan / Dates Group PPO [facility] xxxxxxxxx 2017-P [address] PPO - [facility] resent [id number] [place] [address] [phone] documented as of this encounter
--- OUTSIDE RECORDS SUMMARY | 2020-02-22 18:22 | XMS REPORT | Summary of Care ---
Author Author [facility] Organization [facility] Address Unknown Phone Unavailable Care Team Providers Care Harness Cleaner Name Role Phone [employer], [employer] [phone] Yuriy Loza MD PCP Reason for Referral * Radiology Services (Routine) Referred By Contact Referred To Contact Status Reason Specialty Diagnoses / Procedures Adrian Betts MD [address] [address] [address] [facility] [address] [place] [phone] Pending Radiology Diagnoses Ureteral stone P rocedures CT ABD AND PELVIS WO CONTRAST Reason for Visit * Reason Comments Kidney Stone * Consultation (Routine) Referred By Contact Referred To Contact Status Reason Specialty Diagnoses / Procedures Carole Patel MD [address] [place] [address] Nm Urology [address] [facility]. 10th Floor, [place] [address] Authorization Urology Diagnoses Not Needed Left ureteral calculus P rocedures MT OFFICE OUTPATIENT NEW 30 MINUTES BCM REFERRAL TO UROLOGY Encounter Details Care Team Description Date Type Department Adrian Betts MD [address] [address] [phone] Kidney Stone 10/25/2019 Office Visit [facility] Urology [address] 10[address] Floor, [place] [address] Allergies No Known Allergiesdocumented as of this encounter (statuses as of 10/25/2019) Medications End Date Status Medication Sig Dispensed Refills Start Date Active ethinyl Place 1 Units 4 Ring 3 estradiol-etonogestrel vaginally See 9 (NUVARING) 0.12-0.015 Admin MG/24HR vaginal Instructions. insertIndications: PCOS (polycystic ovarian syndrome) Active trazodone (DESYREL) 50 MG Take 1 Tab by 90 Tab 2 tabletIndications: mouth nightly 9 Primary insomnia as needed for Sleep. Active omeprazole (PRILOSEC) 40 TAKE 1 60 Cap 1 1 MG capsule CAPSULE BY 9 MOUTH TWICE DAILY 30-60 MINUTES BEFORE BREAKFAST AND DINNER Additional Information Patient taking differently: PRN, TAKE 1 CAPSULE BY MOUTH TWICE DAILY 30-60 MINUTES BEFORE BREAKFAST AND DINNER, Reason: PRN Med, Reported on 10/25/2019 8:27 AM 10/25/2019 Discontinued (*Alternate the rapy) Cholecalciferol (VITAMIN Take 50,000 0 D3) 10954 units CAPS Units by mouth every 7 days. 10/25/2019 Discontinued (*Therapy compl eted) Continuous Blood Gluc 2 Each every 2 Each 6 Sensor (FREESTYLE SHAMA 14 days. 9 SENSOR SYSTEM) Change MISCIndications: Type 2 sensors every diabetes mellitus with 14 days; Dx hyperglycemia, with E11.9 long-term current use of insulin (HCCode) 10/25/2019 Discontinued (*Therapy compl eted) BD PEN NEEDLE ANGELICA U/F 1 Each daily. 100 Each 3 0 32G X 4 MM 9 MISCIndications: Type 2 diabetes mellitus with hyperglycemia, with long-term current use of insulin (HCCode) 10/25/2019 Discontinued (*Alternate the rapy) metformin (GLUCOPHAGE-XR) Take 1 Tab by 90 Tab 3 500 MG XR mouth daily. 9 tabletIndications: Controlled type 2 diabetes mellitus with hypoglycemia, without long-term current use of insulin (HCCode) 10/25/2019 Discontinued (*Therapy compl eted) cholestyramine light 4 g Take 1 Packet 60 Each 6 packet by mouth two 9 times daily. documented as of this encounter (statuses as of 10/25/2019) Active Problems Problem Noted Date History of weight loss surgery 03/16/2019 Tonsillar hypertrophy 07/01/2017 Last Assessment & Plan: Assymetrical, will refer to Dr Ayala Type 2 diabetes mellitus (HCCode) 07/01/2017 Obesity (BMI 30-39.9) 07/01/2017 Last Assessment [...] as of this encounter (statuses as of 10/25/2019) Immunizations Name Administration Dates Next Due Influenza Quad-PF 06/20/2019, 06/02/2018, , 06/05/2016 Influenza Quadrivalent 06/20/2019, 06/02/2018, 3YRS+ Tdap 11/28/2015 documented as of this encounter Social History Date Tobacco Use Types Packs/Day Years Used Never Smoker Smokeless Tobacco: Never Used Drinks/Week oz/Week Comments Alcohol Use 1 Standard drinks or equivalent 1.0 social, wine. No Sex Assigned at Date Recorded Not on file Industry Job Start Date Occupation Not on file Not on file Not on file Travel End Travel History Travel Start No recent travel history available. documented as of this encounter Last Filed Vital Signs Reading Time Taken Comments Vital Sign 127/87 10/25/2019 8:22 AM SENIOR ONLINE MARKETING MANAGER Blood Pressure 80 10/25/2019 8:22 AM SENIOR ONLINE MARKETING MANAGER Pulse 37.3 C (99.1 F) 10/25/2019 8:22 AM SENIOR ONLINE MARKETING MANAGER Temperature - - Respiratory Rate - - Oxygen Saturation - - Inhaled Oxygen Concentration - - Weight - - Height - - Body Mass Index documented in this encounter Progress Notes * Adrian Betts MD - 10/25/2019 8:00 AM SENIOR ONLINE MARKETING MANAGER Referring Physician Carole Patel MD [address] [place] [address] Patient Name: Letty Hector :1985 [facility] ID#:[id number] Mr. Hector is a 33 y.o. year old female who present to me for management of a le ft proximal ureteral stone. HPI 33 y.o. female with with a history of obesity, s/p gastric sleeve 12/2018, h/o VS D repair in 1990, DM2 who recently presented to [facility] on 10/10/19 with left f lank pain from a small tiny obstructing left proximal ureteral stone. No fevers, dysuria or hematuria. WBC 6.9, Cr 0.7, UA with 369 RBC, 7 WBC, neg nit, moderate bacteria but +squamous cells. She was discharged on medical expulsive therapy and has been straining the urine but has not obtained a stone. CT appears to have a tiny 2mm left proximal ureteral stone with mild proximal hy naomi. 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 No personal hx of malignancies but aunt had bladder cancer. Past Medical History: Diagnosis Date Diabetes mellitus (HCCode) 2014 Type 2 HLD (hyperlipidemia) 08/19/17 - off meds for attempts HTN (hypertension) PCOS (polycystic ovarian syndrome) VSD (ventricular septal defect) s/p repair Fatty liver No blood thinners Past Surgical History: Procedure Laterality Date HX CARDIAC SURGERY 1990 heart murmur HX CHOLECYSTECTOMY, LAPAROSCOPIC 04/07/2019 HX LAPAROSCOPIC SLEEVE GASTRECTOMY 01/02/2019 No prior urologic surgeries or procedures Medications: Current Outpatient Medications: Cholecalciferol (VITAMIN D3) 48342 units CAPS, Take 50,000 Units by mouth e very 7 days., Disp: , Rfl: Continuous Blood Gluc Sensor (Movetis SHAMA SENSOR SYSTEM) MISC, 2 Each e very 14 days. Change sensors every 14 days; Dx E11.9 (Patient not taking: Report ed on 10/25/2019), Disp: 2 Each, Rfl: 6 ethinyl estradiol-etonogestrel (NUVARING) 0.12-0.015 MG/24HR vaginal insert , Place 1 Units vaginally See Admin Instructions., Disp: 4 Ring, Rfl: 3 metformin (GLUCOPHAGE-XR) 500 MG XR tablet, Take 1 Tab by mouth daily. (Pat ient not taking: Reported on 10/25/2019), Disp: 90 Tab, Rfl: 3 omeprazole (PRILOSEC) 40 MG capsule, TAKE 1 CAPSULE BY MOUTH TWICE DAILY 30 -60 MINUTES BEFORE BREAKFAST AND DINNER (Patient taking differently: as needed. TAKE 1 CAPSULE BY MOUTH TWICE DAILY 30-60 MINUTES BEFORE BREAKFAST AND DINNER), Disp: 60 Cap, Rfl: 1 trazodone (DESYREL) 50 MG tablet, Take 1 Tab by mouth nightly as needed for Sleep., Disp: 90 Tab, Rfl: 2 Outpatient Medications Prior to Visit Medication Sig Dispense Refill [DISCONTINUED] BD PEN NEEDLE ANGELICA U/F 1 Each daily. 100 Each 3 Vitamin D3 Take 50,000 Units by mouth every 7 days. [DISCONTINUED] cholestyramine light Take 1 Packet by mouth two times daily. 60 Each 6 FREESTYLE SHAMA SENSOR SYSTEM 2 Each every 14 days. Change sensors every 14 days; Dx E11.9 (Patient not taking: Reported on 10/25/2019) 2 Each 6 ethinyl estradiol-etonogestrel Place 1 Units vaginally See Admin Instruction s. 4 Ring 3 metformin Take 1 Tab by mouth daily. (Patient not taking: Reported on 10/25/19) 90 Tab 3 omeprazole TAKE 1 CAPSULE BY MOUTH TWICE DAILY 30-60 MINUTES BEFORE BREAKFAS T AND DINNER (Patient taking differently: as needed. TAKE 1 CAPSULE BY MOUTH TWI CE DAILY 30-60 MINUTES BEFORE BREAKFAST AND DINNER) 60 Cap 1 trazodone Take 1 Tab by mouth nightly as needed for Sleep. 90 Tab 2 No facility-administered medications prior to visit. Social History: family history includes Coronary Artery Disease in her paternal grandmother; Cor onary Artery Disease (age of onset: 50) in her father; Diabetes in her maternal grandfather and paternal grandmother; High Cholesterol in her father; gallstones in her mother. Non smoker, no EtoH, no recreational drug use Sexually active with No Known Allergies Review of Systems: Personally reviewed ROS as documented by RN/JOYCE and agree with that report. No anges to her report. Physical Exam: Vitals: 10/25/19 0822 BP: 127/87 BP Location: right arm Patient Position: Sitting Cuff Size: regular Pulse: 80 Temp: 99.1 F (37.3 C) TempSrc: Oral GENERAL: Well developed, well nourished, in no acute distress HEAD: Normocephalic and atraumatic ABDOMEN: Abdomen soft and non-tender without masses, Previous lap scars but no open scars from open surgery No CVA tenderness EXTREMITIES: No clubbing, cyanosis, edema, or deformity SKIN: Intact without lesions or rashes NEURO: GONZALEZ well. Patient alert and oriented x3. PSYCH: Alert and cooperative; normal mood and affect; normal attention span and con centration Discussion: I discussed with the patient that there are many options to treat kidney stones including continuing observation vs. medical therapy vs. Minimally invasive endo scopic options. It is unclear if she has passed the stone. Offered her options and she wants to proceed with a repeat CT stone protocol. Explained the risks of radiation and we will also check a urine test prior. Also briefly discussed management options which include further observation/medi av expulsive therapy, ESWL or ureteroscopy. If she still has the stone she woul d prefer ureteroscopy. Assessment: Left 2mm proximal ureteral calculus. Asymptomatic at present. Plan: UA, UrCx, Urine test prior to CT scan Continue straining, flomax for now. Repeat CT stone protocol in 2 weeks. F/u with me after to discuss results FU in [address] scan done beforehand. I spent over 25 minutes in [id number] discussion with the pt, >50% of encounter was spent in exhaustive counseling about management options of ureteral stones and risks of treatment/non-treatment, including serious, potenti ally life-threatening complications. See the discussion outlined above. OR ONLINE MARKETING MANAGER documented in this encounter Plan of Treatment Order Schedule Name Type Priority Associated Diag noses 1 Occurrences starting 10/25/2019 until 10/25/2020 CT ABD AND PELVIS WO Imaging Routine Ureteral stone CONTRAST Ordered: 10/25/2019 HCG, QUANTITATIVE, SERUM Lab Routine Encou nter for test, result unknown Health Maintenance Due Date Last Done Comments ANNUAL DIABETIC FOOT EXAM 2001 ANNUAL DIABETIC 03/02/2019 03/02/2018, 018 RETINOPATHY SCREENING A1C TESTING EVERY 6 10/12/2019 04/11/2019, 2018, 01/19/2018, MONTHS Additional history exists BMI FOLLOW UP PLAN 06/06/2020 06/06/2019 CERVICAL CANCER SCREENING 10/29/2020 10/29/2017 3 YEAR FOLLOW UP TETANUS SHOT (ADULT) 11/27/2025 11/28/2015 HIV SCREENING Completed 06/06/2019, 019, 06/23/2018, Additional history exists FLU VACCINE > 6 MONTHS Completed 06/20/2019, 09/2018, 06/20/2019, Additional history exists documented as of this encounter Results Not on filedocumented in this encounter Visit Diagnoses Diagnosis Ureteral stone - Primary Calculus of ureter Encounter for test, result un known documented in this encounter Insurance Type Payer Benefit Subscriber ID Effective Phone Address Plan / Dates Group PPO [employer] xxxxxxxxx 2017-P [address] PPO - [id number] resent [id number] [place] [phone] documented as of this encounter
--- OUTSIDE RECORDS SUMMARY | 2020-02-22 18:22 | XMS REPORT | Summary of Care ---
Author Author [facility] Organization [facility] Address Unknown Phone Unavailable Care Team Providers Care Display Carver Name Role Phone [employer] [phone] Yuriy Loza MD PCP Reason for Visit * Reason Comments Needs Labs Drawn Encounter Details Care Team Description Date Type Department Yuriy Loza Jr., MD [address] [facility] [address] [place], [place] [id number] Needs Labs Drawn 11/14/2019 Office Visit [facility] General Internal Medicine [address] [place] [address]. 8th Floor; [address] [place] [address] Allergies No Known Allergiesdocumented as of this encounter (statuses as of 11/14/2019) Medications End Date Status Medication Sig Dispensed [...] PRN Med, Reported on 10/25/2019 8:27 AM Active Continuous Blood Gluc 2 Each every 2 Each 5 Sensor (FREESTYLE SHAMA 14 days. 0 14 DAY SENSOR) MISC Check glucose 4x daily; Change sensor every 14 days; curtesy refill needs to make f/u maegan 11/14/2019 Active Levonorgestrel (PLAN B Take 1 tablet 1 Tab 0 0 ONE-STEP) 1.5 MG by mouth once 0 TABSIndications: for 1 dose. Unprotected sexual intercourse, Encounter for emergency contraception documented as of this encounter (statuses as of 11/14/2019) Active Problems Problem Noted Date History of [...] as of this encounter (statuses as of 11/14/2019) Immunizations Name Administration Dates Next Due Influenza [...] Signs Reading Time Taken Comments Vital Sign 114/78 11/14/2019 9:50 AM CORE BLOWER OPERATOR Blood Pressure 85 11/14/2019 9:50 AM CORE BLOWER OPERATOR Pulse 36.8 C (98.3 F) 11/14/2019 9:50 AM CORE BLOWER OPERATOR Temperature 16 11/14/2019 9:50 AM CORE BLOWER OPERATOR Respiratory Rate 98% 11/14/2019 9:50 AM CORE BLOWER OPERATOR Oxygen Saturation - - Inhaled Oxygen Concentration 87.5 kg (193 lb) 11/14/2019 9:50 AM CORE BLOWER OPERATOR Weight 162.6 cm (5' 4") 11/14/2019 9:50 AM CORE BLOWER OPERATOR Height 33.13 11/14/2019 9:50 AM CORE BLOWER OPERATOR Body Mass Index documented in this encounter Progress Notes * Yuriy Loza Jr., MD - 11/14/2019 1:00 PM CORE BLOWER OPERATOR History of Present Illness: HPI Ms Hector is a 34 yo who presents for STD screening. Reports recent issues with marital discord and is now from her . She reports that they have both been pursuing other relationships, but now they will attempt to reconcile their relationship. Recently, had intercourse with a new partner and had condom break issue. Concerned about whether she has been exposed to STDs. She reports that she was ovulating at the time and would also like to have a pre gnancy test. Still too early for test, but will order for the patient. PMH: she reports that she has never [...] Father Coronary Artery Disease Father 50 Diabetes Brother Other (gallstones) Mother Coronary Artery Disease Paternal Grandmother Diabetes Paternal Grandmother Colon Cancer Neg Hx Colon Polyps Neg Hx Medications: Current Outpatient Medications on File Prior to Visit Medication Sig Dispense Refill Continuous Blood Gluc Sensor (FREESTYLE SHAMA 14 DAY SENSOR) MISC 2 Each irma ry 14 days. Check glucose 4x daily; Change sensor every 14 days; curtesy refill needs to make f/u maegan 2 Each 5 ethinyl estradiol-etonogestrel (NUVARING) 0.12-0.015 MG/24HR vaginal insert Place 1 Units vaginally See Admin Instructions. 4 Ring 3 omeprazole (PRILOSEC) 40 MG capsule TAKE 1 CAPSULE BY MOUTH TWICE DAILY 30-6 0 MINUTES BEFORE BREAKFAST AND DINNER (Patient taking differently: as needed. TA KE 1 CAPSULE BY MOUTH TWICE DAILY 30-60 MINUTES BEFORE BREAKFAST AND DINNER) 60 Cap 1 trazodone (DESYREL) 50 MG tablet Take 1 Tab by mouth nightly as needed for S leep. 90 Tab 2 No current facility-administered medications on file prior to visit. Reviewed. Updated on medication reconciliation in [employer]. Allergies: No Known Allergies Social hx: Reviewed and updated in [employer]. Review of Systems: Review of Systems Constitutional: Negative for chills and fever. HENT: Negative for congestion, rhinorrhea and sneezing. Eyes: Negative for visual disturbance. Respiratory: Negative for cough, shortness of breath and wheezing. Cardiovascular: Negative for chest pain, palpitations and leg swelling. Gastrointestinal: Negative for constipation, diarrhea, nausea and vomiting. Endocrine: Positive for polydipsia and polyuria. Genitourinary: Negative for difficulty urinating, dysuria, pelvic pain and vagin al discharge. Musculoskeletal: Negative for back pain and gait problem. Skin: Negative for pallor and rash. Psychiatric/Behavioral: Negative for dysphoric mood, self-injury and sleep distu rbance. The patient is nervous/anxious. Physical Exam: Vitals: 11/14/19 0950 BP: 114/78 BP Location: right arm Patient Position: Sitting Cuff Size: regular Pulse: 85 Resp: 16 Temp: 98.3 F (36.8 C) TempSrc: Oral SpO2: 98% Weight: 193 lb (87.5 kg) Height: 5' 4" (1.626 m) Physical Exam Vitals signs reviewed. Constitutional: General: She is not in acute distress. Appearance: She is well-developed. She is not diaphoretic. HENT: Mouth/Throat: Pharynx: No oropharyngeal exudate. Eyes: Conjunctiva/sclera: Conjunctivae normal. Neck: Musculoskeletal: Neck supple. Cardiovascular: Rate and Rhythm: Regular rhythm. Heart sounds: Normal heart sounds. No murmur. No friction rub. Pulmonary: Effort: Pulmonary effort is normal. No respiratory distress. Breath sounds: Normal breath sounds. No stridor. No wheezing. Abdominal: General: Bowel sounds are normal. There is no distension. Palpations: Abdomen is soft. Tenderness: There is no abdominal tenderness. There is no rebound. Skin: General: Skin is warm and dry. Neurological: Mental Status: She is alert and oriented to person, place, and time. Psychiatric: Behavior: Behavior normal. Assessment and Plan: Letty was seen today for needs labs drawn. Diagnoses and all orders for this visit: Unprotected sexual intercourse - HIV AB/AG 4TH GEN W RFLX - HEPATITIS C ANTIBODY - HEPATITIS B SURFACE ANTIGEN - CT/GC ISAEL/TMA,CERVICAL/URETHRAL AND URINE - RPR(DIAG) W RFLX TITER/CONF - Levonorgestrel (PLAN B ONE-STEP) 1.5 MG TABS; Take 1 tablet by mouth once for 1 dose. - HCG, QUALITATIVE, URINE Routine screening for STI (sexually transmitted infection) - HIV AB/AG 4TH GEN W RFLX - HEPATITIS C ANTIBODY - HEPATITIS B SURFACE ANTIGEN - CT/GC ISAEL/TMA,CERVICAL/URETHRAL AND URINE Encounter for emergency contraception - Levonorgestrel (PLAN B ONE-STEP) 1.5 MG TABS; Take 1 tablet by mouth once for 1 dose. Yuriy Loza MD BLOWER OPERATOR documented in this encounter Plan of Treatment Order Schedule Name Type Priority Associated Diag noses Ordered: 11/14/2019 HIV AB/AG 4TH GEN W RFLX Lab Routine Routi ne screening for STI (sexually transmitted infection) Unprotected sexual intercourse Ordered: 11/14/2019 HEPATITIS C ANTIBODY Lab Routine Routine s creening for STI (sexually transmitted infection) Unprotected sexual intercourse Ordered: 11/14/2019 HEPATITIS B SURFACE Lab Routine Routine sc reening for STI ANTIGEN (sexually transmitted infection) Unprotected sexual intercourse Ordered: 11/14/2019 CT/GC Microbiology Routine Routine screeni ng for STI ISAEL/TMA,CERVICAL/URETHRAL (sexually transmitted AND URINE infection) Unprotected sexual intercourse Ordered: 11/14/2019 RPR(DIAG) W RFLX Lab Routine Unprotected s exual TITER/CONF intercourse Ordered: 11/14/2019 HCG, QUALITATIVE, URINE Lab Routine Unprot ected sexual intercourse Health Maintenance Due Date Last Done Comments [...] filedocumented in this encounter Visit Diagnoses Diagnosis Unprotected sexual intercourse - Primar y Problems related to high-risk sexual be havior Routine screening for STI (sexually tra nsmitted infection) Screening examination for venereal dise ase Encounter for emergency contraception documented in this encounter Insurance Type Payer Benefit Subscriber ID Effective Phone Address Plan / Dates Group PPO [facility] PREMIUM xxxxxxxxx 2017-P [address] PPO - [place] resent [id number] EMPL[place]EE [facility] [place] [address] PPO CARDIOVASCULAR CARE [facility] - xxxxxxxxx 2016-P 20 PROVIDERS [facility] PROVIDERS [address] [place] [address] [facility] [employer] VISION [employer] EYEMED xxxxxxxxxxx Effective [address] for all [phone] - dates [place], [place] EYEMED [address] VISION CARE [phone] (Home) [place] [address] documented as of this encounter
--- OUTSIDE RECORDS SUMMARY | 2020-02-22 18:22 | XMS REPORT | Summary of Care ---
Author Author [facility] Organization [facility] Address Unknown Phone Unavailable Care Team Providers [employer]ation Architect Name Role Phone [employer] 34 [phone] Yuriy Loza MD PCP Reason for Visit * Reason Comments Follow-up Visit - Diabetes Encounter Details Care Team Description Date Type Department Yusra Urena MD [address] [facility] [address] [place], [place] [id number] Follow-up Visit - Diabetes 04/20/2019 Office Visit [facility] Endocrinology [address] [place] [address]. 8th Floor; [address] [place] [address] Allergies No Known Allergiesdocumented as of this encounter (statuses as of 04/21/2019) Medications End Date Status Medication Sig Dispensed Refills Start Date Active Cholecalciferol (VITAMIN Take 50,000 0 D3) 56902 units CAPS Units by mouth every [address]. Active [address] 1 Units 4 Ring 3 estradiol-etonogestrel vaginally See 9 (NUVARING) 0.12-0.015 Admin MG/24HR vaginal Instructions. insertIndications: PCOS (polycystic ovarian syndrome) Active metformin (GLUCOPHAGE-XR) Take 1 Tab by 270 Tab 3 500 MG XR mouth 3 times 9 tabletIndications: daily (before Uncontrolled type 2 meals). diabetes mellitus with complication, with long-term current use of insulin Active Continuous Blood Gluc 2 Each every 2 Each 6 Sensor (FREESTYLE BRITTNI 14 days. 9 SENSOR SYSTEM) Change MISCIndications: Type 2 sensors every diabetes mellitus with 14 days; Dx hyperglycemia, with E11.9 long-term current use of insulin Active hydrocodone-acetaminophen Take 1 Tab by 30 Tab 0 (NORCO) 10-325 MG per mouth every 8 9 tablet hours as needed for Pain. Active Insulin Glargine Inject 10 5 Pen 3 (BASAGLAR KWIKPEN) 100 Units into 9 UNIT/ML SOPNIndications: the skin Type 2 diabetes mellitus nightly. with hyperglycemia, with long-term current use of insulin Active BD PEN NEEDLE ANGELICA U/F 1 Each daily. 100 Each 3 0 32G X 4 MM 9 MISCIndications: Type 2 diabetes mellitus with hyperglycemia, with long-term current use of insulin 04/20/2019 Discontinued BD PEN NEEDLE ANGELICA U/F 0 32G X 4 MM MISC 8 04/20/2019 Discontinued Semaglutide (OZEMPIC) Inject 0.5 mg 1 Pen 3 0.25 or 0.5 MG/DOSE into the skin 8 SOPNIndications: Type 2 every 7 days. diabetes mellitus with hyperglycemia, with long-term current use of insulin 04/20/2019 Discontinued Insulin Glargine Inject 45 15 mL 0 (BASAGLAR KWIKPEN) 100 Units into 9 UNIT/ML SOPN the skin nightly. 04/20/2019 Discontinued Insulin Aspart (NOVOLOG Inject 10-20 5 Pen 1 0 FLEXPEN) 100 UNIT/ML SOPN Units into 9 the skin 3 times daily (before meals). documented as of this encounter (statuses as of 04/21/2019) Active Problems Problem Noted Date History of weight loss surgery 03/16/2019 Tonsillar hypertrophy 07/01/2017 Last Assessment & Plan: Assymetrical, will refer to Dr Ayala Type 2 diabetes mellitus 07/01/2017 Obesity (BMI 30-39.9) 07/01/2017 Last Assessment [...] as of this encounter (statuses as of 04/21/2019) Immunizations Name Administration Dates Next Due Influenza [...] Signs Reading Time Taken Comments Vital Sign 130/82 04/20/2019 4:27 PM CDT Blood Pressure 92 04/20/2019 4:27 PM CDT Pulse - - Temperature 16 04/20/2019 4:27 PM CDT Respiratory Rate - - Oxygen Saturation - - Inhaled Oxygen Concentration 91.6 kg (202 lb) 04/20/2019 4:27 PM CDT Weight 162.6 cm (5' 4") 04/20/2019 4:27 PM CDT Height 34.67 04/20/2019 4:27 PM CDT Body Mass Index documented in this encounter Patient Instructions * Patient Instructions* Yusra Urena MD - 04/20/2019 4:30 PM CDT Change to taking Vitamin D 5,000 IU daily with food. Stop Ozempic and stop Novolog Take Basaglar 10 units every night. If you have blood sugars less than 80 mg/dl, decrease Basaglar insulin dose by 2 units, and this will become your new dose. If you still have blood sugars less than 80 mg/dl, decrease Basaglar insulin dos e by another 2 units, and this will become your new dose. Thank you for choosing [facility]. If you have questions about your visit, treatment, or if you have new concerns, please call us at [phone] and leave a message for the nurse Ms. Mccullough. documented in this encounter Progress Notes * Yusra Urena MD - 04/20/2019 4:30 PM CDT Chief Complaint Patient presents with Follow-up Visit - Diabetes HPI: Ms Letty García a 33 y.o. female (working at [employer]). Her past medical history is significant for type 2 diabetes, hypertension, obesi ty, fatty liver, PCOS, a congenital heart defect (unspecified), and possible OS A. Past surgical history is notable for heart surgery for a congenital heart defect (1990) and bariatric surgery 12/2018. She used to see Dr. Stinson. The patient has a family history notable for diabetes and heart disease. 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 She was diagnosed with diabetes type 2 in 2014. Also with PCOS. Currently she is on Basaglar 10 units QHS Ozempic Novolog prn Meds stopped: Trulicity 1.5 mg weekly and Metformin 500 BID. She is planning a in 2020 (seeing a fertility doctor). Diet - compliant. Walks with her dog 30-60 min almost every day. Uses Brittni CGM. Avg 113. Denies foot neuropathy No DR - 03/2019 No CP/SOB but baseline mild tachycadia Previous [facility] work up negative. Normal TFTs Endocrinology Results Latest Ref Rng & Units 04/06/2019 04/07/2019 04/08/2019 04/11/2019 HGB A1C 4.2 - 5.6 % - - - 5.7(H) [id number] SEE BELOW NG/ML - - - 15(L) TSH 0.400 - 4.100 UIU/ML - - - 0.683 HGB 11.5 - 15.5 G/DL 13.7 13.3 12.9 14.2 HCT 34.0 - 45.0 % 40.7 38.5 37.8 40.9 CREATININE 0.60 - 1.30 MG/DL 0.65 0.59 0.62 0.61 ALT 5 - 40 U/L 14 11 86(H) 35 NA 133 - 146 MEQ/L 139 140 134(L) 141 K 3.5 - 5.4 MEQ/L 3.6 3.6 4.5 4.1 CL 95 - 107 MEQ/L 106 107 108(H) 101 CO2 19 - 31 MEQ/L 27 25 19(L) 23 BUN 6 - 20 MG/DL 10 8 5(L) 9 CALCIUM 8.5 - 10.5 MG/DL 9.3 8.9 8.5 9.6 GLUCOSE 70 - 99 MG/DL 79 79 126(H) 107(H) Some recent data might be hidden Past Medical History: Diagnosis Date Diabetes mellitus 2015 Type 2 HLD (hyperlipidemia) 08/19/17 - off meds for attempts HTN (hypertension) PCOS (polycystic ovarian syndrome) VSD (ventricular septal defect) s/p repair Past Surgical History: Procedure Laterality Date HX CARDIAC SURGERY 1990 heart murmur HX CHOLECYSTECTOMY, LAPAROSCOPIC 04/07/2019 HX LAPAROSCOPIC SLEEVE GASTRECTOMY 01/02/2019 No Known Allergies Outpatient Medications Marked as Taking for the 04/20/19 encounter (Office Visit) with Yusra Urena MD Medication Sig Dispense Refill BD PEN NEEDLE ANGELICA U/F 32G X 4 MM MISC Cholecalciferol (VITAMIN D3) 39599 units CAPS Take 50,000 Units by mouth irma ry 7 days. Continuous Blood Gluc Sensor (FREESTYLE BRITTNI SENSOR SYSTEM) MISC 2 Each irma ry 14 days. Change sensors every 14 days; Dx E11.9 2 Each 6 ethinyl estradiol-etonogestrel (NUVARING) 0.12-0.015 MG/24HR vaginal insert Place 1 Units vaginally See Admin Instructions. 4 Ring 3 hydrocodone-acetaminophen (NORCO) 10-325 MG per tablet Take 1 Tab by mouth e very 8 hours as needed for Pain. 30 Tab 0 Insulin Aspart (NOVOLOG FLEXPEN) 100 UNIT/ML SOPN Inject 10-20 Units into th e skin 3 times daily (before meals). (Patient taking differently: Inject 10 Unit s into the skin 3 times daily (before meals). Indications: only if bs is above 1 0) 5 Pen 1 Insulin Glargine (BASAGLAR KWIKPEN) 100 UNIT/ML SOPN Inject 45 Units into th e skin nightly. (Patient taking differently: Inject 10-15 Units into the skin ni ghtly.) 15 mL 0 metformin (GLUCOPHAGE-XR) 500 MG XR tablet Take 1 Tab by mouth 3 times daily (before meals). (Patient taking differently: Take 500 mg by mouth two times reynold ly.) 270 Tab 3 Semaglutide (OZEMPIC) 0.25 or 0.5 MG/DOSE SOPN Inject 0.5 mg into the skin e very 7 days. 1 Pen 3 Family History Problem Relation Name Age of Onset High Cholesterol Father Coronary Artery Disease Father 50 Diabetes Maternal Grandfather Other (gallstones) Mother Coronary Artery Disease Paternal Grandmother Diabetes Paternal Grandmother Colon Cancer Neg Hx Colon Polyps Neg Hx Physical Examination BP 130/82 (BP Location: right arm, Patient Position: Sitting, Cuff Size: regular ) | Pulse 92 | Resp 16 | Ht 5' 4" (1.626 m) | Wt 202 lb (91.6 kg) | LMP | BMI 34.67 kg/m Wt Readings from Last 3 Encounters: 04/20/19 202 lb (91.6 kg) 04/17/19 204 lb 6.4 oz (92.7 kg) 04/17/19 206 lb 3.2 oz (93.5 kg) General appearance - alert, well appearing, and in no distress Mental status - alert, oriented to person, place, and time Eyes - pupils equal and reactive, extraocular eye movements intact Mouth - mucous membranes moist, pharynx normal without lesions Neck - supple, no significant adenopathy Chest - clear to auscultation, no wheezes, rales or rhonchi, symmetric air entry Heart - normal rate and regular rhythm Neurological - alert, oriented, normal speech, no focal findings or movement dis order noted Musculoskeletal - no joint tenderness, deformity or swelling Extremities - peripheral pulses normal, no pedal edema, no clubbing or cyanosis Skin - normal coloration and turgor, no rashes, no suspicious skin lesions noted Labs/images: reviewed Ref. Range 05/05/2016 09:49 05/05/2016 09:49 03/24/2017 08:47 01/19/2018 09:07 01/20/20 18 09:08 CALC MICROALB/CREAT RAND Latest Ref Range: <30 MG/G 46 (H) LUTEINIZING HORMONE Latest Ref Range: SEE BELOW MIU/ML 6.0 FOLLICLE STIMULATING HORMONE Latest Ref Range: SEE BELOW MIU/ML 6.7 PROLACTIN Latest Ref Range: 2.0 - 27.0 NG/ML 3.8 HEMOGLOBIN A1C Latest Ref Range: 4.2 - 5.6 % 9.1 (A) 9.7 (H) 9.6 (H) GLUCOSE Latest Ref Range: 70 - 99 MG/DL GLUCOSE FINGERSTICK Unknown ESTRADIOL Latest Ref Range: SEE BELOW PG/ML 66 TESTOSTERONE LEVEL Latest Ref Range: 8 - 60 ng/dL 93 (H) 88 (H) BIOAVAILABLE TESTOSTERONE Latest Units: ng/dL 37 TESTOSTERONE FREE Latest Ref Range: 0.06 - 1.03 ng/dL 2.55 (H) TSH REFLEX Latest Ref Range: 0.5 - 4.7 UIU/ML 0.9 Ref. Range 01/19/2018 09:08 CHOLESTEROL Latest Ref Range: <200 MG/DL 191 TRIGLYCERIDES Latest Ref Range: <150 MG/DL 264 (H) HDL Latest Ref Range: >39 MG/DL 42 LDL CHOLESTEROL CALCULATED Latest Ref Range: <100 MG/DL 96 Assessment and Plan: 1. Type 2 diabetes mellitus with hyperglycemia, with long-term current use of in sulin Hgba1C significantly improved since bariatric surgery. Recommend stop Ozempic an d Novolog. Continue Basaglar 10 units qhs but to start to taper if BG's trended down. Reviewed plan of care and instructions with pt and she verbalized her understand ing. - Insulin Glargine (BASAGLAR KWIKPEN) 100 UNIT/ML SOPN; Inject 10 Units into the skin nightly. Dispense: 5 Pen; Refill: 3 - BD PEN NEEDLE ANGELICA U/F 32G X 4 MM MISC; 1 Each daily. Dispense: 100 Each; Ref ill: 3 2. Microalbuminuria Optimize dm management 3. Dyslipidemia Lipids significantly improved 03/2019. Hold off on statin since pt is planning a Patient Instructions Change to taking Vitamin D 5,000 IU daily with food. Stop Ozempic and stop Novolog Take Basaglar 10 units every night. If you have blood sugars less than 80 mg/dl, decrease Basaglar insulin dose by 2 units, and this will become your new dose. If you still have blood sugars less than 80 mg/dl, decrease Basaglar insulin dos e by another 2 units, and this will become your new dose. Thank you for choosing [facility]. If you have questions about your visit, treatment, or if you have new concerns, please call us at [phone] and leave a message for the nurse Ms. Mccullough. I spent 25 minutes face to face with patients, and >50% of the time counseling and coordination of care regarding diabetes management. documented in this encounter Plan of Treatment Care Team Description Date Type Specialty Jim Cleveland MD [address] [facility] 8th [address] [place] [address] [phone] 07/24/2019 Office Visit Bariatrics Health Maintenance Due Date Last Done Comments ANNUAL DIABETIC FOOT EXAM 2001 BMI FOLLOW UP PLAN 2001 ANNUAL DIABETIC 03/02/2019 03/02/2018, 018, 09/22/2017 RETINOPATHY SCREENING FLU VACCINE > 6 MONTHS 04/20/2019 06/02/2018, , 06/02/2018, Additional history exists A1C TESTING EVERY 6 10/12/2019 04/11/2019, 2018, 01/19/2018, MONTHS Additional history exists CERVICAL CANCER SCREENING 10/29/2020 10/29/2017 3 YEAR FOLLOW UP TETANUS SHOT (ADULT) 11/27/2025 11/28/2015 HIV SCREENING Completed 12/16/2018, 018, 05/28/2016 documented as of this encounter Results Not on filedocumented in this encounter Visit Diagnoses Diagnosis Type 2 diabetes mellitus with hyperglyc emia, with long-term current use of insulin - Primary Microalbuminuria Proteinuria Dyslipidemia Other and unspecified hyperlipidemia documented in this encounter Insurance Type Payer Benefit Subscriber ID Effective Phone Address Plan / Dates Group PPO [facility] xxxxxxxxx 2017-P [address] - [id number] resent [id number] [place] [address] PPO CARDIOVASCULAR CARE [facility] - xxxxxxxxx 2016-P 20 PROVIDERS CARDIOVASC resent [facility], [facility] PROVIDERS [address] [place] [address] O [employer] EYEMED xxx xx Effective [address] for all [id number] - dates [place], [place] E[place] [address] V[employer]ARE [phone] [id number] [address] (Home) [place] [address] documented as of this encounter
== END | disposition left against medical advice (07) ==
LOC: ER 18:18
DX: R10.9 Unspecified abdominal pain (principal)